=== PATIENT | female | born 1935 | race Caucasian/White ===

== ENCOUNTER 2019-06-30 06:57 | Inpatient (IN) | payer OTHER, SELFPAY ==
[2019-06-30] VITALS (14 sets, daily range): BP systolic 116–160; BP diastolic 71–92; PULSE 69–85; RESP 18–26; TEMP 36.6–37.1; O2SAT 85–97; BMI 34.4; BMI 33.5
--- NOTE | 2019-06-30 07:11 | EKG12_ITS ---
Test Reason : Blood Pressure : / mmHG Vent. Rate : 078 BPM Atrial Rate : 090 BPM P-R Int : 000 ms QRS Dur : 092 ms QT Int : 408 ms P-R-T Axes : 000 082 034 degrees QTc Int : 465 ms Atrial fibrillation Abnormal ECG Confirmed by KAMILLA AUGUSTINE ([id number]), video news editor LUKASZ EMEYR ([id number]) on 07/02/2019 11:07:07 AM Referred By: SONIA Confirmed By:KAMILLA AUGUSTINE
--- NOTE | 2019-06-30 07:11 | RAD_ITS ---
STUDY: X-RAY CHEST REASON FOR EXAM: Female, 83 years old. increase SOB, chest tightness -- cough x several weeks TECHNIQUE: Single AP portable view of the chest. COMPARISON: None. FINDINGS: There is hyperinflation of the lungs consistent with chronic obstructive lung disease (COPD). Bibasilar airspace disease. Could represent atelectasis or infection. There is no demonstrated pleural abnormality. There is borderline cardiomegaly. Normal mediastinum and danitza. Normal visualized pulmonary arteries. There is atherosclerotic tortuosity of the aortic arch and descending thoracic aorta. There are diffuse degenerative changes of the visualized thoracic spine. Normal visualized ribs, clavicles, and shoulders. There is no demonstrated abnormality of the visualized soft tissue structures of the upper abdomen. RAD/Chest 1 View (Portable) IMPRESSION: COPD with bibasilar airspace disease. Possible infection versus atelectasis. Electronically Signed: Clint Romo DO at 7:41 EST Tel , Service support ,
--- NOTE | 2019-06-30 07:14 | ED.DCSUM_ITS ---
- ER Visit Summary Date of Service: 06/30/19 Chief Complaint: Shortness of breath History of Present Illness: The patient is a 83 F presenting with shortness of breath. Patient states that she has had URI symptoms for the past couple weeks. She has shortness of breath that has been progressively worsening. This morning the shortness of breath was severe and EMS was called. She states shortness of breath is worsened with exertion. She has had a nonproductive cough. She has chest tightness with cough. She denies fever, complains of chills. Denies other complaints. Physical Examination: Vitals are stable. Patient is afebrile. Alert no acute distress. 85% on room air HEENT exam is unremarkable. Neck is supple. Lungs are wheezing bilaterally. Heart is irregularly irregular Abdomen is soft nontender nondistended. Extremities mild symmetric edema Skin is warm and dry. No focal neurologic deficit. Remainder of exam is unremarkable. Emergency Department Course and Treatment: Patient was given albuterol, Atrovent aerosols. EKG is A. fib rate is 78 with no acute ischemic changes. CBC shows hemoglobin 10.6. Chemistries show potassium 3.4, glucose 153. Troponin is negative. Influenza negative. BNP 410. Chest x-ray shows COPD with bibasilar airspace disease. Possible infection versus atelectasis. Blood cultures were sent. She was given Rocephin, Zithromax IV. Discussed with hospitalist for admission. Disposition: Admission Impression: Pneumonia, hypoxia, new onset A. fib This note was generated with [employer] dictation software. It may contain incorrect words, spelling, and punctuation that were not noted in review of the chart prior to signing ED Disposition - Plan for ED Patient: Referrals: Kevin Albert III, MD [Primary Care Provider] -
[2019-06-30 07:27] LABS: Absolute Lymphocyte Count 2.03 X10^3/uL (0.83-4.51); Absolute Neutrophil Count 4.2 X10^3/uL (2.0-7.7); Basophil# 0.03 X10^3/uL; Basophil% 0.4 % (0-1); Eosinophil# 0.15 X10^3/uL; Eosinophils% 2.1 % (0-5); Hematocrit 34.5 % (37-47); Hemoglobin 10.6 g/dL (12.0-15.0); Lymphocyte # 2.03 X10^3/ul (4.0); Mean Corp Hgb Conc 30.7 g/dL (32-36); Mean Corpuscular Hgb 25.9 pg (27.0-32.0); Mean Corpuscular Volume 84.4 fL (81-99); Mean Platelet Vol. 9.6 fl (6.2-12.0); Monocyte# 0.55 X10^3/uL; Monocyte% 7.9 % (0-10); NRBC Flagged by Analyzer 0 % (0-5); Neutrophil # 4.21 X10^3/uL (2.7-7.7); Neutrophil % 60.2 % (47-70); Platelet Count 228 K/mm3 (150-450); RBC Distribution Width CV 14.5 % (11.6-14.6); RBC Distribution Width SD 44.1 fl (35.1-43.9); Red Blood Count 4.09 M/mm3 (4.2-5.4)
[2019-06-30] MEDS: Albuterol 2.5 MG/3 ML VIAL.NEB. INHALATION ×3 (07:33)
[2019-06-30] MEDS: Ipratropium/Albuterol Sulfate 3 ML AMPUL.NEB INHALATION (07:33)
[2019-06-30 07:40] LABS: Anion Gap 7 (5-15); BUN 17 mg/dL (7-18); BUN/Creat Ratio 24.6 RATIO (10-20); Calcium,Total 8.5 mg/dL (8.5-10.1); Chloride 101 mmol/L (98-107); Creatinine, Serum 0.69 mg/dL (0.55-1.02); EST Glomerular Filtration Rate 87 mL/min (>60); Est Glom Filt Rate - Afr Amer 105 mL/min (>60); Glucose 153 mg/dL (74-106); Potassium 3.4 mmol/L (3.5-5.1); Sodium Level 137 mmol/L (136-145)
[2019-06-30] MEDS: Ceftriaxone 1 GM/50 ML BAG IV (08:06)
[2019-06-30 08:19] LABS: BNP,B-Type NATRIURETIC PEPTIDE 410.9 pg/mL (0-100)
--- NOTE | 2019-06-30 08:35 | NURSING ---
DR MENA SCOTT
--- NOTE | 2019-06-30 08:38 | NURSING ---
MED SURG PNEUMONIA, HYPOXIA KAYDENAM
--- NOTE | 2019-06-30 08:41 | HP.PCM_ITS ---
History of Present Illness Date of Admission: 06/30/19 Chief Complaint: shortness of breath The patient is a 83 year old F with a past medical history which includes diabetes and hypertension. She was admitted through the ED on 06/30/2019 with a complaint of shortness of breath which have been going on for about 2 weeks prior to admission. Shortness of breath progressively worsened with assisted lower extremity edema and orthopnea and PND. She denied any chest pain or palpitations or dizziness and denied any abdominal pain, diarrhea or vomiting. Review of systems is otherwise negative. She is never had such shortness of breath in the past before and has never been told she has heart failure. On adm ission, vitals were essentially stable and she was saturating well on 2 L of oxygen. Chemistry was significant for potassium of 3.4 and initial troponin was negative. BNP was 410.9. CBC was significant only for hemoglobin of 10.6. Chest x-ray showed COPD with bibasilar airspace disease showing possible infection versus atelectasis. EKG showed no acute ST changes and showed A. fib. Of note, patient denies having a history of A. fib. She has been admitted to be managed for acute heart failure of unknown EF. [] Past Medical History Allergies No Known Allergies Allergy (Verified 06/30/19 07:01) Home Medications: Ambulatory Orders Medication Instructions Recorded Amlodipine [Norvasc] 10 mg PO DAILY 10/26/16 Hydrochlorothiazide [Hctz] 12.5 mg PO DAILY 10/26/16 Lorazepam [Ativan] 0.5 mg PO BID PRN PRN 10/26/16 Metoprolol Tartrate [Lopressor 50 mg PO BID 10/26/16 (beta fabien)] Naproxen [Naprosyn] 500 mg PO BID PRN PRN 10/26/16 Quinapril HCl [Accupril] 20 mg PO DAILY 10/26/16 glipiZIDE XL [Glucotrol Xl] 5 mg PO DAILY@0800 10/26/16 metFORMIN HCl [Glucophage] 1,000 mg PO BIDCM 10/26/16 Atorvastatin Calcium [Lipitor] 20 mg PO QHS 06/30/19 Calcium Carbonate/Vitamin D3 1 ea PO DAILY 06/30/19 [Calcium 600 + Vit D Tablet] [place]-3 Fatty Acids/Fish Oil [Fish 1 ea PO BID 01/07/20 Oil 1,000 mg Capsule] traZODone [Desyrel] 50 mg PO QHS 06/30/19 Lives: With Family Smoking Status: Never smoker Alcohol: None Drugs: None - *Family History Maternal History Items: Heart Disease Paternal History Items: Heart Disease, Stroke Review of Systems Constitutional: Denies: Chills, Fever, Malaise, Weakness, Weight Change Eyes: Denies: Blurred vision HEENT: Denies: Head Aches, Sinus Congestion, Sinus Drainage Cardiovascular: Reports: Edema, Orthopnea, Paroxysmal Noc. Dyspnea. Denies: Chest Pain, Chest Tightness, Heaviness, Light Headedness, Palpitations Respiratory: Reports: Shortness of Breath, Shortness of breath at rest, Shortness of breath upon exertion. Denies: Cough, Sputum production Gastrointestinal: Denies: Abdominal Pain, Nausea, Vomiting Genitourinary: Denies: Dysuria Musculoskeletal: Denies: Joint Pain, Joint Tenderness Skin: Denies: Rash, Wounds Neurological: Denies: Numbness, Tingling, Focal weakness Psychiatric: Denies: Anxiety, Depression, Homicidal Ideations, Suicidal Ideations Hematologic/ Lymphatic: Denies: Easy Bruising, Easy Bleeding VTE Information - Inpt Only VTE Present on Admission: No VTE Pharm Prophylaxis ordered?: Yes - Physical Exam Vitals/I&O's: Vital Signs Temp Pulse Resp BP Pulse Ox 97.9 F 72 26 H 129/77 H 97 06/30/19 08:08 06/30/19 08:08 06/30/19 08:08 06/30/19 08:08 06/30/19 08:08 Oxygen Flow Rate (L/min) 3 Oxygen Delivery Method Nasal Cannula Weight: 188 lb 4.396 oz Body Mass Index (BMI) 34.4 Finger Stick Blood Glucose 205 General: Alert, Oriented x3, Cooperative, No apparent distress HEENT: Atraumatic, PERRLA, EOMI, Normocephalic Oral: Moist Mucosa Neck: Supple, No JVD, Negative Carotid Bruits Lungs: - - decreased breath sounds bibasally, no wheezes or crackles. on 2L of oxygen by nasal canula Cardiovascular: No murmurs, Irregular Rate - and rhythm Abdomen: Bowel Sounds Present, Soft, Non Tender Extremities: No clubbing, No cyanosis, Edema - bilateral pitting pedal edema (1+) Skin: No rashes, No breakdown Musculoskeletal: No Tenderness to Palpation of Joints or Extremities Lymphatic: No Cervical, Supraclavicular, or Inguinal Adenopathy Neurological: Cranial nerves II-XII grossly intact, Neuro grossly intact, Motor Exam 5/5 strength throughout Psych/Mental Status: Normal Affect, Appropriate, Alert and oriented to time, place, person, mood and affect Microbiology Past 72 Hours 06/30/19 07:20 Mucosa - Nose Influenza Types A,B Direct FA (DANIEL) - Final Laboratory Results 06/30/19 07:05: WBC 7.0, RBC 4.09 L, Hgb 10.6 L, Hct 34.5 L, MCV 84.4, MCH 25.9 L, MCHC 30.7 L, RDW Std Deviation 44.1 H, RDW Coeff of Jim 14.5, Plt Count 228, MPV 9.6, Immature Gran % (Auto) 0.400, Neut % (Auto) 60.2, Lymph % (Auto) 29.0, [place] % (Auto) 7.9, Eos % (Auto) 2.1, Baso % (Auto) 0.4, Absolute Neuts (auto) 4.2, Absolute Lymphs (auto) 2.03, Nucleated RBC % 0 06/30/19 07:05: Sodium 137, Potassium 3.4 L, Chloride 101, Carbon Dioxide 29.0, Anion Gap 7, BUN 17, Creatinine 0.69, Estim Creat Clear Calc 34.90, Est GFR (MDRD) Af Amer 105, Est GFR (MDRD) Non-Af 87, BUN/Creatinine Ratio 24.6 H, Glucose 153 H, Calcium 8.5, Troponin I < 0.015 06/30/19 07:05: B-Natriuretic Peptide 410.9 H Diagnostic Data Chest X-Ray 06/30/19 07:11 IMPRESSION: COPD with bibasilar airspace disease. Possible infection versus atelectasis. Electronically Signed: Clint Romo DO at 7:41 EST Tel , Service support , Current Medications Azithromycin 500 mg/ Dextrose 255 mls @ 250 mls/hr IV X1 ONE Stop: 06/30/19 08:44 Assessment/Plan 83 y/o admitted with a complaint of shortness of breath, with associated orthopnea and PND 1. Acute heart failure with unknown EF * admit to pCU with telemetry * BNP was 410. CXR showed COPD with bibasilar airspace disease; however, she has no clinical evidence of pneumonia * initial troponin was negative; will cycle * start IV lasix 40mg bid * monitor intake and output chart; fluid restriction to 1500cc deaily * 2D echo * check TSH * 2. New onset Afib * has no history of Afib * EKG on admission showed Afib, rate controlled * CHADVASC score is 6 * will give start on lovenox; once troponins are cycled and are negative, will transition to eliquis or coumadin, based on cost and preference 3. Hypertension: * Controlled. * On amlodipine and lisinopril. * We will stop amlodipine and start patient on carvedilol from tomorrow once shortness of breath improves. * 4. Diabetes mellitus: on metformin and glipizide. ISS. Accuchecks ACHS. DVT prophylaxis: Started on Lovenox. CODE STATUS: Full code * Patient and daughter counseled extensively about different types of CODE STATUS including full code, DNR CCA and DNR CCA. Patient elects to be full code. * Total hbif-ll-eoea time 18 minutes. Code Visit Inpatient E&M: 91901 Init Hosp L3 Procedures: 12291 Advncd Care Plan 30 Min
--- NOTE | 2019-06-30 08:46 | NURSING ---
NEW ORDER, U 124
--- NOTE | 2019-06-30 10:06 | EKG12_ITS ---
Test Reason : ROUTINE Blood Pressure : / mmHG Vent. Rate : 069 BPM Atrial Rate : 258 BPM P-R Int : 000 ms QRS Dur : 092 ms QT Int : 414 ms P-R-T Axes : 000 084 019 degrees QTc Int : 443 ms Atrial fibrillation Abnormal ECG Confirmed by MIKAELA JAIN, NATE ([id number]), restaurant expeditor LUKASZ EMERY ([id number]) on 07/01/2019 11:47:48 AM Referred By: MENA Confirmed By:NATE AL MD
--- NOTE | 2019-06-30 10:06 | ECHOD_ITS ---
Reason For Study: CHF Procedure This was a 2D Doppler, Color Flow transthoracic echocardiogram. Exam performed portable in patient room. Left Ventricle Normal LV size. Left ventricular systolic function is normal. The estimated ejection fraction is 65 %. There is evidence of diastolic dysfunction. No regional wall motion abnormalities noted. Right Ventricle Normal RV size. Normal systolic function. Atria The left atrium is severely enlarged. The right atrium is severely enlarged. No doppler evidence for ASD. Mitral Valve There is mild mitral annular calcification. Extension of the mitral annular calcification onto the base of the mitral valve leaflets. Moderate (2+) mitral valve insufficiency. Tricuspid Valve Normal tricuspid valve. Moderate (2+) tricuspid valve insufficiency. Right ventricular systolic pressure estimated to be 82 mmHg. Aortic Valve Trisinus/trileaflet aortic valve. Mild diffuse aortic valve thickening. Mild diffuse aortic valve calcification. Moderate aortic stenosis. Trivial aortic valve insufficiency. Pulmonic Valve The pulmonic valve is not well visualized. Mild (1+) pulmonic valve insufficiency. Great Vessels Normal sized aortic root. Calcified aortic root. Pericardium/Pleural No pericardial effusion. MMode/2D Measurements & Calculations LVIDd: 4.5 cm IVSd: 0.92 cm LVOT diam: 2.1 cm LVIDs: 2.7 cm LVPWd: 1.00 cm LVOT area: 3.5 cm2 RVDd: 3.4 cm FS: 38.6 % Ao root diam: 3.5 cm LAV(MOD-bp): 130.6 ml LVAd ap4: 24.0 cm2 LAV(MOD-bp) Indexed: 71.0 ml/m2 EDV(MOD-sp4): 71.1 ml LAV(MOD-sp2): 112.3 ml EDV(sp4-el): 73.3 ml LAV(MOD-sp4): 141.1 ml LVAs ap4: 13.7 cm2 ESV(MOD-sp4): 31.0 ml ESV(sp4-el): 31.0 ml EF(MOD-sp4): 56.4 % EF(sp4-el): 57.7 % SV(MOD-sp4): 40.1 ml SV(sp4-el): 42.3 ml LA A4 area: 35.2 cm2 LA dimension(2D): 5.3 cm RA A4 area: 26.5 cm2 Time Measurements MV dec time: 0.15 sec Doppler Measurements & Calculations MV E max tom: 161.2 cm/sec Lat Peak E' Tom: 7.9 cm/sec Med Peak E' Tom: 7.7 cm/sec MV A max tom: 97.8 cm/sec E/E' lat: 20.5 E/E' med: 20.8 MV E/A: 1.6 Ao V2 max: 324.9 cm/sec AI max tom: 452.5 cm/sec LV V1 max: 105.7 cm/sec Ao max P.3 mmHg AI max P.9 mmHg LV V1 max P.5 mmHg Ao V2 mean: 236.8 cm/sec LV V1 mean P.5 mmHg Ao mean P.5 mmHg AI dec slope: 404.8 cm/sec2 LV V1 mean: 75.1 cm/sec Ao V2 VTI: 69.1 cm AI P1/2t: 327.4 msec LV V1 VTI: 22.9 cm AYANNA(I,D): 1.1 cm2 AYANNA(V,D): 1.1 cm2 SV(LVOT): 79.0 ml PA V2 max: 89.6 cm/sec PI end-d tom: 91.7 cm/sec TR max tom: 431.0 cm/sec TR max P.3 mmHg Interpretation Summary Left ventricular systolic function is normal. The estimated ejection fraction is 65 %. The left atrium is severely enlarged. The right atrium is severely enlarged. There is mild mitral annular calcification. Extension of the mitral annular calcification onto the base of the mitral valve leaflets. Moderate (2+) mitral valve insufficiency. Moderate (2+) tricuspid valve insufficiency. Moderate aortic stenosis. Trivial aortic valve insufficiency. Mild (1+) pulmonic valve insufficiency. Calcified aortic root. Right ventricular systolic pressure estimated to be 82 mmHg c/w severe pulmonary hypertension. There is evidence of diastolic dysfunction. Ordering Physician: Renee Holder Referring Physician: BENNY DOMINGUEZ Performed By: Jazz Morgan, FORTINO, RVT
[2019-06-30 10:43] LABS: Cholesterol 98 mg/dL (200); High Density Lipoprotein 45 mg/dL; Thyroid Stim Hormone (TSH) 2.33 uIU/mL (0.358-3.74); Triglycerides 111 mg/dL; Very Low Density Lipoprotein 22 mg/dL (5-40)
[2019-06-30] MEDS: Furosemide 40 MG/4 ML Vial IV ×2 (10:59→17:22)
[2019-06-30 11:10] LABS: Bedside Glucose 163 mg/dL (70-110)
[2019-06-30] MEDS: Enoxaparin 80 MG/0.8 ML Syringe SC (11:55)
[2019-06-30] MEDS: Insulin Lispro 100 UNIT/ML INSULN.PEN SC ×2 (12:00→16:12)
[2019-06-30 12:16] LABS: Bedside Glucose 158 mg/dL (70-110)
[2019-06-30] MEDS: amLODIPine 10 MG Tablet PO (13:09)
--- NOTE | 2019-06-30 15:02 | CASEMGMT ---
RN DINORAH assessment: Face to Face with patient for initial transition planning/care coordination assessment. RN DINORAH introduced self and role at [facility], pt voices understanding and consents to assessment at this time. Pt is lying in bed in no distress at this time. Pt is A/Ox4 at this time and answers all questions appropriately at this time. Pt's daughter, Triny Dunn, is at bedside during assessment. Care providers, pharmacy, and demographics verified at this time. Presentation: Increased SOB this morning. Tightness in chest. Cough for weeks. Admitting dx: Acute heart failure with unknown EF, New onset afib PCP: [facility] Specialists: Pt states no current specialists. Preferred Pharmacy: [facility] pharmacy in [place]-Dr. Holder asked this RN CM to notify pt regarding cost of Eliquis out of pocket. Pt aware of out of pocket cost for Eliquis at this time and pt aware that physician will be discussing this with her later, voices understanding. Insurance: AC Prescription Benefit: Self Living Will/HPOA: Pt states has LW/HPOA and is aware that it is not currently on file at [facility] at this time. Pt states that she provided copies to Dr. Albert's office and is agreeable for this RN CM to call and attempt to get copies faxed over. LNOK: Triny Dunn, daughter Living Arrangements: Pt states lives with daughter in 1 story home with 1 step in and states no concerns at home at this time. Pt states has been independent with ADL's at home. Transportation: Pt states no transportation concerns at this time. DME/HHC: Pt states has a cane and grab bars and states no need for any further DME at this time. Pt states no hx of HHC or SNF in the past. Pt states no concerns with going home at time of discharge. Pt is retired. Pt states does not smoke or drink ETOH. Pt states no further concerns/needs at this time. CM to follow for any further discharge planning/needs. Advised pt/daughter to ask for CM if any further questions/concerns/needs arise, voice understanding. Pt Goal: Home Plan[place]
--- NOTE | 2019-06-30 16:05 | CHAPLAIN ---
Type of Pastoral Visit _x__ Initial Visit ___ Follow-up Visit ___ On-call Visit ___ General Patient Visit ___ Spiritual Assessment ___ Family Conference ___ Bereavement ___ Rapid Response ___ Code Blue ___ Other (describe below) Pastoral Care Referral From _x__ Patient ___ Family ___ Nurse ___ Physician ___ Advertising Job Titles ___ Senior Project Leader/Team Lead ___ Other (describe below) Sacrament/Intervention ___ Active listening ___ Anointing ___ Adventist ___ Bereavement ___ Communion ___ [place] exploration ___ ___ Life review ___ Prayer ___ Reconciliation ___ Sacrament of Sick _x__ Supportive presence ___ Wedding ___ Other (describe below) Pastoral Comments
[2019-06-30] MEDS: metFORMIN HCl 500 MG Tablet 1000 MG PO (16:12)
[2019-06-30 16:20] LABS: Bedside Glucose 172 mg/dL (70-110)
[2019-06-30] MEDS: 0.9% Saline Lock 10 ML Syringe IV ×2 (17:22→21:21)
[2019-06-30] MEDS: Acetaminophen 325 MG Tablet 650 MG PO (17:27)
[2019-06-30 17:55] LABS: International Normalized Ratio 1.1; Prothrombin Time (Protime)PT. 14.3 SECONDS (11.7-14.9)
[2019-06-30] MEDS: Omega-3 Acid Ethyl Esters 1 GM Capsule PO (21:15)
[2019-06-30] MEDS: Metoprolol Tartrate 50 MG Tablet PO (21:15)
[2019-06-30] MEDS: traZODone 50 MG Tablet PO (21:15)
[2019-06-30] MEDS: Atorvastatin Calcium 20 MG Tablet PO (21:15)
[2019-07-01] VITALS (9 sets, daily range): BP systolic 94–123; BP diastolic 51–64; PULSE 64–79; RESP 14–20; TEMP 36.6–36.7; O2SAT 92–94
[2019-07-01 00:17] LABS: Bedside Glucose 119 mg/dL (70-110)
[2019-07-01 06:04] LABS: Absolute Lymphocyte Count 1.61 X10^3/uL (0.83-4.51); Absolute Neutrophil Count 4.1 X10^3/uL (2.0-7.7); Basophil# 0.03 X10^3/uL; Basophil% 0.5 % (0-1); Eosinophil# 0.14 X10^3/uL; Eosinophils% 2.2 % (0-5); Hemoglobin 9.4 g/dL (12.0-15.0); Lymphocyte # 1.61 X10^3/ul (4.0); Mean Corp Hgb Conc 31.3 g/dL (32-36); Mean Corpuscular Hgb 26.1 pg (27.0-32.0); Mean Corpuscular Volume 83.3 fL (81-99); Monocyte% 9.3 % (0-10); NRBC Flagged by Analyzer 0 % (0-5); Neutrophil # 4.05 X10^3/uL (2.7-7.7); Neutrophil % 62.7 % (47-70); Platelet Count 201 K/mm3 (150-450); RBC Distribution Width CV 14.3 % (11.6-14.6); RBC Distribution Width SD 43.2 fl (35.1-43.9); White Blood Count 6.5 K/mm3 (4.4-11.0)
[2019-07-01 06:14] LABS: International Normalized Ratio 1.3; Prothrombin Time (Protime)PT. 15.6 SECONDS (11.7-14.9)
[2019-07-01 06:37] LABS: Anion Gap 6 (5-15); BUN 14 mg/dL (7-18); BUN/Creat Ratio 18.4 RATIO (10-20); Calcium,Total 8.6 mg/dL (8.5-10.1); Chloride 101 mmol/L (98-107); Creatinine, Serum 0.76 mg/dL (0.55-1.02); EST Glomerular Filtration Rate 78 mL/min (>60); Est Glom Filt Rate - Afr Amer 94 mL/min (>60); Glucose 146 mg/dL (74-106); Potassium 3.3 mmol/L (3.5-5.1); Sodium Level 138 mmol/L (136-145)
[2019-07-01 06:45] LABS: Bedside Glucose 143 mg/dL (70-110)
[2019-07-01] MEDS: metFORMIN HCl 500 MG Tablet 1000 MG PO ×2 (09:10→16:35)
[2019-07-01] MEDS: Omega-3 Acid Ethyl Esters 1 GM Capsule PO ×2 (09:11→21:51)
[2019-07-01] MEDS: glipiZIDE XL 5 MG Tablet PO (09:11)
[2019-07-01] MEDS: Furosemide 40 MG/4 ML Vial IV ×2 (09:11→16:35)
[2019-07-01] MEDS: Metoprolol Tartrate 50 MG Tablet PO ×2 (09:11→21:51)
[2019-07-01] MEDS: Calcium Carbonate 500 MG Tablet PO (09:12)
[2019-07-01] MEDS: Lisinopril 20 MG Tablet PO (09:12)
[2019-07-01] MEDS: amLODIPine 10 MG Tablet PO (09:15)
[2019-07-01] MEDS: 0.9% Saline Lock 10 ML Syringe IV ×2 (09:15→16:38)
[2019-07-01] MEDS: Insulin Lispro 100 UNIT/ML INSULN.PEN SC (11:35)
[2019-07-01 11:41] LABS: Bedside Glucose 187 mg/dL (70-110)
--- NOTE | 2019-07-01 14:17 | PCM.PN.HOSP ---
Subjective: Patient seen and examined. She feels much better today and has no complaints. Shortness of breath has improved markedly. Review of symptoms otherwise negative. Labs and vitals reviewed. She has remained hemodynamically stable. Vitals/I&O's: Vital Signs Temp Pulse Resp BP Pulse Ox 98.1 F 79 16 123/63 H 92 07/01/19 09:10 07/01/19 09:11 07/01/19 09:10 07/01/19 09:10 07/01/19 09:10 Oxygen Flow Rate (L/min) 2 Oxygen Delivery Method Room Air Weight: 183 lb 6.793 oz Body Mass Index (BMI) 33.5 Finger Stick Blood Glucose 205 Intake and Output for Last 24 Hours 06/29/19 06/30/19 07/01/19 23:59 23:59 23:59 Intake Total 1245 / 1245 220 / 220 Output Total 890 / 890 400 / 400 Balance 355 / 355 -180 / -180 General: Alert, Oriented x3, Cooperative, No apparent distress HEENT: Atraumatic, PERRLA, EOMI, Normocephalic Oral: Moist Mucosa Neck: Supple, No JVD, Negative Carotid Bruits Lungs: - - decreased breath sounds bibasally. on 2L of oxygen by nasal canula Cardiovascular: Irregular Rate - and rhythm, mild grade 2 systolic murmur over pulmonary valve area. Abdomen: Bowel Sounds Present, Soft, Non Tender Extremities: No clubbing, No cyanosis, Edema - bilateral pitting pedal edema (1+) Skin: No rashes, No breakdown Musculoskeletal: No Tenderness to Palpation of Joints or Extremities Lymphatic: No Cervical, Supraclavicular, or Inguinal Adenopathy Neurological: Cranial nerves II-XII grossly intact, Neuro grossly intact, Motor Exam 5/5 strength throughout Psych/Mental Status: Normal Affect, Appropriate, Alert and oriented to time, place, person, mood and affect Microbiology Past 72 Hours 06/30/19 07:20 Mucosa - Nose Influenza Types A,B Direct FA (DANIEL) - Final Laboratory Results 06/30/19 13:50: Troponin I < 0.015 06/30/19 16:11: POC Glucose 172 H 06/30/19 17:41: PT 14.3, INR 1.1 06/30/19 21:01: POC Glucose 119 H 07/01/19 05:30: WBC 6.5, RBC 3.60 L, Hgb 9.4 L, Hct 30.0 L, MCV 83.3, MCH 26.1 L, MCHC 31.3 L, RDW Std Deviation 43.2, RDW Coeff of Jim 14.3, Plt Count 201, MPV 10.0, Immature Gran % (Auto) 0.300, Neut % (Auto) 62.7, Lymph % (Auto) 25.0, [place] % (Auto) 9.3, Eos % (Auto) 2.2, Baso % (Auto) 0.5, Absolute Neuts (auto) 4.1, Absolute Lymphs (auto) 1.61, Nucleated RBC % 0 07/01/19 05:30: Sodium 138, Potassium 3.3 L, Chloride 101, Carbon Dioxide 31.0, Anion Gap 6, BUN 14, Creatinine 0.76, Estim Creat Clear Calc 34.90, Est GFR (MDRD) Af Amer 94, Est GFR (MDRD) Non-Af 78, BUN/Creatinine Ratio 18.4, Glucose 146 H, Calcium 8.6 07/01/19 05:30: PT 15.6 H, INR 1.3 07/01/19 06:32: POC Glucose 143 H 07/01/19 11:35: POC Glucose 187 H Current Medications Acetaminophen (Tylenol) 650 mg PO Q6H PRN PRN PRN Reason: Pain Score 1-3/Temp > 100.7 F Last Admin: 06/30/19 17:27 Dose: 650 mg Documented by: Amlodipine Besylate (Norvasc) 10 mg PO DAILY [facility] Last Admin: 07/01/19 09:15 Dose: 10 mg Documented by: Atorvastatin Calcium (Lipitor) 20 mg PO QHS [facility] Last Admin: 06/30/19 21:15 Dose: 20 mg Documented by: Calcium Carbonate (Tums) 500 mg PO DAILY [facility] Last Admin: 07/01/19 09:12 Dose: 500 mg Documented by: Furosemide (Lasix) 40 mg IV BIDLX [facility] Last Admin: 07/01/19 09:11 Dose: 40 mg Documented by: Glipizide (Glucotrol Xl) 5 mg PO DAILY@0800 [facility] Last Admin: 07/01/19 09:11 Dose: 5 mg Documented by: Glucagon () 1 mg IM .X1 PRN PRN Reason: Hypoglycemia Guaifenesin (Robitussin) 20 ml PO Q4H PRN PRN PRN Reason: COUGH Sodium Chloride () 250 mls @ 15 mls/hr IV .[id number] PRN PRN Reason: Saline Flush Sodium Chloride () 250 mls @ 15 mls/hr IV .[id number] PRN PRN Reason: Additional IVPB Infusion Dextrose (Dextrose 10%-Water) 250 mls @ 999 mls/hr IV .Q16M PRN; Protocol PRN Reason: HYPOGLYCEMIA Insulin Human Lispro (Humalog Kwikpen (Bkc)) 0 unit SC ACHS [facility]; Protocol Last Admin: 07/01/19 11:35 Dose: 2 u Documented by: Lisinopril (Zestril) 20 mg PO DAILY [facility] Last Admin: 07/01/19 09:12 Dose: 20 mg Documented by: Lorazepam (Ativan) 0.5 mg PO BID PRN PRN PRN Reason: ANXIETY Metformin [facility] ([facility]ophage) [facility] Last Admin: 07/01/19 09:10 Dose: 1,000 mg Documented by: Metoprolol Tartrate (Lopressor (Beta Francois)) 50 mg PO BID [facility] Last Admin: 07/01/19 09:11 Dose: 50 mg Documented by: Nitroglycerin (Nitrostat) 0.4 mg SUBLINGUAL Q5M PRN PRN Reason: CARDIAC/CHEST PAIN Vtfyq-[id number] Ethyl Esters (Lovaza) 1 gm PO BID [facility] Last Admin: 07/01/19 09:11 Dose: 1 gm Documented by: Ondansetron HCl (Zofran) 4 mg IV Q8H PRN PRN PRN Reason: NAUSEA/VOMITING Sodium Chloride () 10 - 40 ml IV UD PRN PRN Reason: SALINE FLUSH Last Admin: 07/01/19 09:15 Dose: 10 ml Documented by: Trazodone HCl (Desyrel) 50 mg PO QHS [facility] Last Admin: 06/30/19 21:15 Dose: 50 mg Documented by: Medical Necessity - Tobacco Use Smoking Status: Never smoker Assessment/Plan 83 y/o admitted with a complaint of shortness of breath, with associated orthopnea and PND 1. Acute heart failure with preserved EF feels better today. SOB is much better 2D echo: EF of 65%, with normal LV size and no regional wall motion abnormalities noted. Evidence of diastolic dysfunction on IV lasix 40mg bid In mild positive balance by 175 mils though I do not have a cure that is because patient does not have a Dupont catheter in place and has been going to the bathroom on her own. TSH was 2.33. 2. New onset Afib has no history of Afib EKG on admission showed Afib, rate controlled CHADVASC score is 6 On Coumadin. INR today is 1.3. Received 10mg of Coumadin yesterday. Give another 10 mg of Coumadin today. 3. Hypertension: Controlled. On amlodipine and lisinopril. rate controlled will stop amlodipine and start low dose carvedilol in light of heart failure. 4. Hypokalemia: Potassium is 3.3. Replace and monitor. 5. Diabetes mellitus: on metformin and glipizide. ISS. Accuchecks ACHS. DVT prophylaxis: On Coumadin. Code Visit Inpatient E&M: 41126 Subs Hosp L2
[2019-07-01 16:40] LABS: Bedside Glucose 86 mg/dL (70-110)
[2019-07-01] MEDS: Atorvastatin Calcium 20 MG Tablet PO (21:51)
[2019-07-01] MEDS: traZODone 50 MG Tablet PO (21:51)
[2019-07-01 22:10] LABS: Bedside Glucose 113 mg/dL (70-110)
[2019-07-02] VITALS (8 sets, daily range): BP systolic 94–121; BP diastolic 44–62; PULSE 59–85; RESP 18; TEMP 36.6–37.1; O2SAT 94–99
[2019-07-02 06:53] LABS: International Normalized Ratio 2.4; Prothrombin Time (Protime)PT. 26.4 SECONDS (11.7-14.9)
[2019-07-02 07:06] LABS: Bedside Glucose 132 mg/dL (70-110)
[2019-07-02 07:34] LABS: Anion Gap 7 (5-15); BUN 22 mg/dL (7-18); BUN/Creat Ratio 30.3 RATIO (10-20); Calcium,Total 8.4 mg/dL (8.5-10.1); Chloride 101 mmol/L (98-107); Creatinine, Serum 0.73 mg/dL (0.55-1.02); EST Glomerular Filtration Rate 82 mL/min (>60); Est Glom Filt Rate - Afr Amer 99 mL/min (>60); Glucose 118 mg/dL (74-106); Potassium 3.3 mmol/L (3.5-5.1); Sodium Level 139 mmol/L (136-145)
[2019-07-02] MEDS: glipiZIDE XL 5 MG Tablet PO (07:54)
[2019-07-02] MEDS: metFORMIN HCl 500 MG Tablet 1000 MG PO (07:54)
--- NOTE | 2019-07-02 09:46 | DCINST_ITS ---
You will use the following diet at home:: Cardiac Your food should be the consistency of: Regular Your liquids should be the consistency of: Regular/Thin Discharge Activity: Return to Normal Activity Weight Bearing Status: Weight bearing as tolerated Call your doctor if you observe: Shortness of breath, Swelling in the ankles, Chest pain, Increased palpitations (irregular heartbeat) Instructions: Taking SADIA Inhibitors, Taking?Coumadin, What Is Heart Failure?, What Is Atrial Flutter/Atrial Fibrillation? Additional Instructions: to be referred to automated access systems technician by PCP, as per patient's request. To see PCP for INR check in 2-3 days. Target INR is 2-3 Allergies/Adverse Reactions: Allergies No Known Allergies Allergy (Verified 06/30/19 07:01) Medications to take at Discharge Lorazepam [Ativan] 0.5 mg PO BID PRN PRN 10/26/16 Quinapril HCl [Accupril] 20 mg PO DAILY 10/26/16 glipiZIDE XL [Glucotrol Xl] 5 mg PO DAILY@0800 10/26/16 metFORMIN HCl [Glucophage] 1,000 mg PO BIDCM 10/26/16 Atorvastatin Calcium [Lipitor] 20 mg PO QHS 06/30/19 Calcium Carbonate/Vitamin D3 [Calcium 600 + Vit D Tablet] 1 ea PO DAILY 06/30/19 [place]-3 Fatty Acids/Fish Oil [Fish Oil 1,000 mg Capsule] 1 ea PO BID 06/30/19 traZODone [Desyrel] 50 mg PO QHS 06/30/19 Furosemide [Lasix] 40 mg PO DAILY #30 tab 07/02/19 Metoprolol Tartrate 25 mg PO BID #60 tab 07/02/19 Warfarin [Coumadin ([facility]KC)] 5 mg PO DAILY #30 tab 07/02/19 The following prescriptions were given: Warfarin [Coumadin (PBKC)] 5 mg PO DAILY #30 tab Transmission Status: Pending to [facility] Furosemide [Lasix] 40 mg PO DAILY #30 tab Transmission Status: Sent to [facility] Metoprolol Tartrate 25 mg PO BID #60 tab Transmission Status: Pending to [facility] Primary Care Physician: Kevin Albert III, MD [Primary Care Provider] - Please follow up with your Primary Care Physician in: within one week Test Results: Test results from this visit will be discussed in further detail at your follow- up appointment, if applicable. Proposed Discharge Date: 07/02/19
--- NOTE | 2019-07-02 09:51 | PCM.DC.SUM ---
Discharge Date and Diagnosis Date of Admission: 06/30/19 Date of Discharge: 07/02/19 - Primary Discharge Diagnosis acute heart failure with preserved EF new onset Atrial fibrillation Hospital Course and Treatment Imaging Results: Diagnostic Data Chest X-Ray 06/30/19 07:11 IMPRESSION: COPD with bibasilar airspace disease. Possible infection versus atelectasis. Electronically Signed: Clint Romo DO at 7:41 EST Tel , Service support , none Operations: None Procedures: 2-D Echocardiogram Summary of Care Provided: The patient is a 83 year old F with a past medical history which includes diabetes and hypertension. She was admitted through the ED on 06/30/2019 with a complaint of shortness of breath which have been going on for about 2 weeks prior to admission. Shortness of breath progressively worsened with assisted lower extremity edema and orthopnea and PND. She denied any chest pain or palpitations or dizziness and denied any abdominal pain, diarrhea or vomiting. Review of systems is otherwise negative. She is never had such shortness of breath in the past before and has never been told she has heart failure. On admission, vitals were essentially stable and she was saturating well on 2 L of oxygen. Chemistry was significant for potassium of 3.4 and initial troponin was negative. BNP was 410.9. CBC was significant only for hemoglobin of 10.6. Chest x-ray showed COPD with bibasilar airspace disease showing possible infection versus atelectasis. EKG showed no acute ST changes and showed A. fib. Of note, patient denies having a history of A. fib. She was admitted to be managed for acute heart failure of unknown EF. CHADVASC score was 6. She was started on diuresis with IV Lasix 40 mg twice daily. She was also started on anticoagulation. 2D echo done showed EF of 65% with normal left ventricular size and no regional motion abnormalities noted but had evidence of diastolic dysfunction. Patient shortness of breath resolved with diuresis. She was put on Coumadin. Patient had episodes of transient hypotension which was thought to be due to diuresis and she stated that her blood pressure had been running low so her PCP had adjusted her medication. Amlodipine was therefore discontinued and patient was discharged home on 40 mg daily of Lasix. Her quinapril dose was also decreased to 10 mg daily and she was put on metoprolol 25 mg twice daily. She had previously been on 50 mg twice daily, which she denies a history of A. fib. TSH was 2.33. Patient preferred not to follow-up with her mastic man in the [facility] system and wanted to see her PCP who is the [facility] doctor for her to be referred to her mastic man in the [facility] system. Patient remained stable and was discharged home on 07/02/2019 with a prescription for p.o. Coumadin 5 mg daily. She is to follow-up with her primary care doctor for INR check within the next 2 days. Target INR is between 2 and 3. Seen and examined prior to discharge. She had no complaints. Review of systems otherwise negative. Labs and vitals reviewed. Home medication reviewed and reconciled. o/e: Vital Signs Height 5 ft 2 in Weight: 179 lb 14.355 oz Weight in Pounds 179.9 lbs Pulse Ox 99 Temperature 97.8 F Pulse Rate 67 Respiratory Rate 18 Blood Pressure [BP] 103/62 Blood Pressure 121/52 Blood Pressure Position [BP] Sitting Blood Pressure Position Semi-Fowlers General: Alert, Oriented x3, Cooperative, No apparent distress HEENT: Atraumatic, PERRLA, EOMI, Normocephalic Oral: Moist Mucosa Neck: Supple, No JVD, Negative Carotid Bruits Lungs: - - decreased breath sounds bibasally. on 2L of oxygen by nasal canula Cardiovascular: Irregular Rate - and rhythm, mild grade 2 systolic murmur over pulmonary valve area. Abdomen: Bowel Sounds Present, Soft, Non Tender Extremities: No clubbing, No cyanosis, Edema - bilateral pitting pedal edema (1+) Skin: No rashes, No breakdown Musculoskeletal: No Tenderness to Palpation of Joints or Extremities Lymphatic: No Cervical, Supraclavicular, or Inguinal Adenopathy Neurological: Cranial nerves II-XII grossly intact, Neuro grossly intact, Motor Exam 5/5 strength throughout Psych/Mental Status: Normal Affect, Appropriate, Alert and oriented to time, place, person, mood and affect Plan is as above. Patient was counseled her blood pressure at home and if her systolic fell below 100, she was not to take her blood pressure medications to call her primary care doctor. Note, patient was also discharged with a prescription for p.o. potassium chloride 20 mg daily on account of hypokalemia during admission which is likely due to diuresis with Lasix. - Physical Exam Vitals/I&O's: Vital Signs Temp Pulse Resp BP Pulse Ox 98.2 F 70 18 115/61 94 07/02/19 08:13 07/02/19 08:13 07/02/19 08:13 07/02/19 08:13 07/02/19 08:13 Oxygen Flow Rate (L/min) 2 Oxygen Delivery Method Room Air Weight: 179 lb 14.355 oz Body Mass Index (BMI) 33.5 Finger Stick Blood Glucose 205 Intake and Output for Last 24 Hours 06/30/19 07/01/19 07/02/19 23:59 23:59 23:59 Intake Total 1245 / 1245 340 / 340 50 / 50 Output Total 890 / 890 1150 / 1150 200 / 200 Balance 355 / 355 -810 / -810 -150 / -150 Microbiology Past 72 Hours 06/30/19 08:00 Blood Culture (Wb) - Anticubital Left Blood Culture - Preliminary No growth in 48 hours. 06/30/19 07:58 Blood Culture (Wb) - Anticubital Right Blood Culture - Preliminary No growth in 48 hours. 06/30/19 07:20 Mucosa - Nose Influenza Types A,B Direct FA (DANIEL) - Final Laboratory Results 07/01/19 11:35: POC Glucose 187 H 07/01/19 16:34: POC Glucose 86 07/01/19 21:58: POC Glucose 113 H 07/02/19 06:30: PT 26.4 H, INR 2.4 07/02/19 06:30: Sodium 139, Potassium 3.3 L, Chloride 101, Carbon Dioxide 31.0, Anion Gap 7, BUN 22 H, Creatinine 0.73, Estim Creat Clear Calc 34.90, Est GFR (MDRD) Af Amer 99, Est GFR (MDRD) Non-Af 82, BUN/Creatinine Ratio 30.3 H, Glucose 118 H, Calcium 8.4 L 07/02/19 06:52: POC Glucose 132 H Current Medications Acetaminophen (Tylenol) 650 mg PO Q6H PRN PRN PRN Reason: Pain Score 1-3/Temp > 100.7 F Last Admin: 06/30/19 17:27 Dose: 650 mg Documented by: Atorvastatin Calcium (Lipitor) 20 mg PO QHS [facility] Last Admin: 07/01/19 21:51 Dose: 20 mg Documented by: Calcium Carbonate (Tums) 500 mg PO DAILY [facility] Last Admin: 07/01/19 09:12 Dose: 500 mg Documented by: Furosemide (Lasix) 40 mg PO DAILY [facility] Glipizide (Glucotrol Xl) 5 mg PO DAILY@0800 [facility] Last Admin: 07/02/19 07:54 Dose: 5 mg Documented by: Glucagon () 1 mg IM .X1 PRN PRN Reason: Hypoglycemia Guaifenesin (Robitussin) 20 ml PO Q4H PRN PRN PRN Reason: COUGH Sodium Chloride () 250 mls @ 15 mls/hr IV .[id number] PRN PRN Reason: Saline Flush Sodium Chloride () 250 mls @ 15 mls/hr IV .[id number] PRN PRN Reason: Additional IVPB Infusion Dextrose (Dextrose 10%-Water) 250 mls @ 999 mls/hr IV .Q16M PRN; Protocol PRN Reason: HYPOGLYCEMIA Insulin Human Lispro (Humalog Kwikpen (Bkc)) 0 unit SC ACHS [facility]; Protocol Last Admin: 07/02/19 07:37 Dose: Not Given Documented by: Lisinopril (Zestril) 20 mg PO DAILY [facility] Last Admin: 07/01/19 09:12 Dose: 20 mg Documented by: Lorazepam (Ativan) 0.5 mg PO BID PRN PRN PRN Reason: ANXIETY [facility] Last Admin: 07/02/19 07:54 Dose: 1,000 mg Documented by: Metoprolol Succinate (Toprol Xl (Beta Francois)) 12.5 mg PO DAILY [facility] Metoprolol Tartrate (Lopressor (Beta Francois)) 50 mg PO BID [facility] Last Admin: 07/01/19 21:51 Dose: 50 mg Documented by: Nitroglycerin (Nitrostat) 0.4 mg SUBLINGUAL Q5M PRN PRN Reason: CARDIAC/CHEST PAIN [id number] Ethyl Esters (Lovaza) 1 gm PO BID [facility] Last Admin: 07/01/19 21:51 Dose: 1 gm Documented by: Ondansetron HCl (Zofran) 4 mg IV Q8H PRN PRN PRN Reason: NAUSEA/VOMITING Sodium Chloride () 10 - 40 ml IV UD PRN PRN Reason: SALINE FLUSH Last Admin: 07/01/19 16:38 Dose: 10 ml Documented by: Trazodone HCl (Desyrel) 50 mg PO QHS [facility] Last Admin: 07/01/19 21:51 Dose: 50 mg Documented by: Discharge Diet: Low fat/ Low Cholesterol Discharge Activity: Return to Normal Activity Weight Bearing Status: Weight bearing as tolerated Call your doctor if you observe: Shortness of breath, Swelling in the ankles, Chest pain, Increased palpitations (irregular heartbeat) Home Medications: Medications to take at Discharge Lorazepam [Ativan] 0.5 mg PO BID PRN PRN 10/26/16 glipiZIDE XL [Glucotrol Xl] 5 mg PO DAILY@0800 10/26/16 metFORMIN HCl [Glucophage] 1,000 mg PO BIDCM 10/26/16 Atorvastatin Calcium [Lipitor] 20 mg PO QHS 06/30/19 Calcium Carbonate/Vitamin D3 [Calcium 600 + Vit D Tablet] 1 ea PO DAILY 06/30/19 [place]-3 Fatty Acids/Fish Oil [Fish Oil 1,000 mg Capsule] 1 ea PO BID 06/30/19 traZODone [Desyrel] 50 mg PO QHS 06/30/19 Furosemide [Lasix] 40 mg PO DAILY #30 tab 07/02/19 Metoprolol Tartrate 25 mg PO BID #60 tab 07/02/19 Potassium Chloride [K-Tab ER] 20 meq PO DAILY #30 tablet.er 07/02/19 Quinapril HCl 10 mg PO DAILY #30 tab 07/02/19 Warfarin [Coumadin (PBKC)] 5 mg PO DAILY #30 tab 07/02/19 Following Prescrptions Were Given to Patient: Warfarin [Coumadin ([facility])] 5 mg PO DAILY #30 tab Transmission Status: Received by [facility] Potassium Chloride [K-Tab ER] 20 meq PO DAILY #30 tablet.er Transmission Status: Sent to [facility] Furosemide [Lasix] 40 mg PO DAILY #30 tab Transmission Status: Received by [facility] Metoprolol Tartrate 25 mg PO BID #60 tab Transmission Status: Received by [facility] [place] Quinapril HCl 10 mg PO DAILY #30 tab Transmission Status: Received by [facility] [place] Primary Care Physician: Kevin Albert III, MD [Primary Care Provider] - Please follow up with your Primary Care Physician in: within one week Patient Instructions: Taking SADIA Inhibitors, Taking?Coumadin, What Is Heart Failure?, What Is Atrial Flutter/Atrial Fibrillation? Disposition: Home Minutes spent on discharge:: 45 Patient Condition:: Stable Medical Necessity - Tobacco Use Smoking Status: Never smoker Meaningful Use Info Meaningful Use Diagnoses (Choose all that apply): CHF - CHF SADIA/ARB ordered at discharge?: Yes Documented LVEF (%): 65 Code Visit Inpatient E&M: 54093 Disch Hosp
[2019-07-02] MEDS: Omega-3 Acid Ethyl Esters 1 GM Capsule PO (09:58)
[2019-07-02] MEDS: Lisinopril 20 MG Tablet PO (09:58)
[2019-07-02] MEDS: Calcium Carbonate 500 MG Tablet PO (09:58)
--- NOTE | 2019-07-02 11:36 | PHA.DC.MC ---
Pharmacy Service has performed discharge medication reconciliation and counseling for this patient. 1. FUROSEMIDE 40MG PO DAILY 2. METOPROLOL TARTRATE 25MG PO BID 3. WARFARIN 5MG PO DAILY The patient's discharge medication list was reviewed for discrepancies and discrepancies were resolved. Home Medications Lorazepam [Ativan] 0.5 mg PO BID PRN PRN 10/26/16 glipiZIDE XL [Glucotrol Xl] 5 mg PO DAILY@0800 10/26/16 metFORMIN HCl [Glucophage] 1,000 mg PO BIDCM 10/26/16 Atorvastatin Calcium [Lipitor] 20 mg PO QHS 06/30/19 Calcium Carbonate/Vitamin D3 [Calcium 600 + Vit D Tablet] 1 ea PO DAILY 06/30/19 [place]-3 Fatty Acids/Fish Oil [Fish Oil 1,000 mg Capsule] 1 ea PO BID 06/30/19 traZODone [Desyrel] 50 mg PO QHS 06/30/19 Furosemide [Lasix] 40 mg PO DAILY #30 tab 07/02/19 Metoprolol Tartrate 25 mg PO BID #60 tab 07/02/19 Quinapril HCl 10 mg PO DAILY #30 tab 07/02/19 Warfarin [Coumadin (PBKC)] 5 mg PO DAILY #30 tab 07/02/19 The patient was counseled on the following discharge medications and changes in medications for homegoing were reviewed. The Reason for Use, instructions for use, and potential side effects were reviewed for all new medications. The patient's questions regarding all of their medications were answered. The patient was able to verbally demonstrate an understanding of their discharge medications.
[2019-07-02] MEDS: Metoprolol Tartrate 25 MG Tablet PO (11:52)
[2019-07-02] MEDS: Furosemide 40 MG Tablet PO (11:52)
[2019-07-02 11:55] LABS: Bedside Glucose 143 mg/dL (70-110)
== END 2019-07-02 16:05 | disposition home or self-care (01) | DRG 291 ==
LOC: ED 07:23 → PCU 08:54
PROVIDERS: Admitting Provider Student in an Organized Health Care Education/Training Program; Emergency Provider Emergency Medicine; Family Provider Family Medicine; PCP Family Medicine; Visit Provider Student in an Organized Health Care Education/Training Program
DX: I11.0 Hypertensive heart disease with heart failure (principal); I50.31 Acute diastolic (congestive) heart failure; I48.91 Unspecified atrial fibrillation; E11.9 Type 2 diabetes mellitus without complications; E87.6 Hypokalemia; R09.02 Hypoxemia; Z23 Encounter for immunization; Z79.84 Long term (current) use of oral hypoglycemic drugs
CPT/HCPCS: 36415; 71045; 80048; 80061; 82962; 83880; 84443; 84484; 85025; 85610; 87040; 87804; 93005; 93306; 94640; 97161; 97165; 97530; 99251; 99285; J7030; Q9957; 90686; A4216; G0463; J1940

== ENCOUNTER → 2019-07-09 11:08 | Outpatient (CLI) | payer OTHER, SELFPAY ==
[2019-06-30 09:27] VITALS: BMI 33.5
[2019-07-09 11:31] LABS: Prothrombin Time (Protime)PT. 91.3 SECONDS (11.7-14.9)
[2019-07-09 11:40] LABS: International Normalized Ratio 11.4
== END ==
PROVIDERS: Visit Provider Family Medicine
DX: I48.0 Paroxysmal atrial fibrillation (principal)
CPT/HCPCS: 85610

== ENCOUNTER → 2020-01-05 09:27 | Outpatient (CLI) | payer OTHER, SELFPAY ==
[2019-06-30 09:27] VITALS: BMI 33.5
== END ==
PROVIDERS: PCP Family Medicine; Referring Provider Family Medicine; Visit Provider Family Medicine
DX: Z11.59 Encounter for screening for other viral diseases (principal)
CPT/HCPCS: 87635; G2023; U0003

== ENCOUNTER → 2022-04-09 | Outpatient (CLI) | payer OTHER, SELFPAY ==
[2022-04-09 16:39] LABS: International Normalized Ratio 3.8
== END | disposition home or self-care (01) ==
LOC: LABSPEC 15:52
PROVIDERS: PCP Family Medicine; Referring Provider Family Medicine; Visit Provider Family Medicine
DX: I48.0 Paroxysmal atrial fibrillation (principal)
CPT/HCPCS: 85610

== ENCOUNTER → 2022-12-05 | Outpatient (CLI) | payer OTHER, SELFPAY ==
[2022-12-05 16:54] LABS: International Normalized Ratio 1.4; Prothrombin Time (Protime)PT. 17.2 SECONDS (11.7-14.9)
== END | disposition home or self-care (01) ==
LOC: LABSPEC 16:28
PROVIDERS: PCP Family Medicine; Visit Provider Family Medicine
DX: I48.0 Paroxysmal atrial fibrillation (principal)
CPT/HCPCS: 85610

== ENCOUNTER 2023-02-23 03:23 | Inpatient (IN) | payer OTHER, SELFPAY ==
[2023-02-23] VITALS (14 sets, daily range): BP systolic 95–158; BP diastolic 54–82; PULSE 61–87; RESP 18–20; TEMP 36.2–36.9; O2SAT 86–100; BMI 29.0; BMI 27.9
--- NOTE | 2023-02-23 03:42 | EDS_ITS ---
HPI History of Present Illness Chief Complaint: Shortness of Breath Informant: patient Onset/Context/Timing Onset: Yesterday Context: gradual Timing: Intermittent Quality: Positive for Dyspnea on exertion and Orthopnea Current Severity: Mild Maximum Severity: Severe Worsened by: Exertion and Lying flat Relieved by: Oxygen (by EMS) Associated Symptoms Negative for cough, fever or chills Chest Pain: Positive for None Narrative Narrative: 87-year-old female living at home with her daughter has been feeling short of breath especially with exertion or lying flat for the past day or 2, this mornin g around 2:30 AM she came and woke her daughter up because she was having more trouble breathing. She denies any palpitations, chest discomfort, fevers, chills, cough, other recent URI symptoms, or swelling in her extremities. She has a history of congestive heart failure, in the past when she has had issues with that she has had swelling in her extremities. She is currently on Lasix in the morning and Zaroxolyn at night, she has been compliant with these medications, she still urinates really well when she takes them, and has had no recent changes, just changed warfarin to Eliquis within the last month. [facility] Medical History (Updated 02/23/23 @ 05:[address] Jordy Rosas MD) Atrial fibrillation Congestive heart failure Hard of hearing Home Medications glipizide 5 mg tablet, extended release 24 hr 2.5 mg PO DAILY@0800 diabetes 10/26/16 [History Last Taken Unknown] metformin 500 mg tablet 1,000 mg PO BIDCM DAIBETES 10/26/16 [History Last Taken Unknown] atorvastatin 20 mg tablet 20 mg PO QHS cholesterol 06/30/19 [History Last Taken Unknown] calcium carbonate-vitamin D3 600 mg-125 unit tablet 1 ea PO DAILY supplement 06/30/19 [History Last Taken Unknown] omega-3 fatty acids-fish oil 340 mg-1,000 mg capsule 1 ea PO BID supplement 06/30/19 [History Last Taken Unknown] potassium chloride 20 mEq tablet,extended release 20 meq PO DAILY ##30 07/02/19 [Rx Last Taken Unknown] apixaban 2.5 mg tablet (Eliquis) 2.5 mg PO BID 02/23/23 [History Last Taken Unknown] aspirin 81 mg capsule 81 mg PO DAILY 02/23/23 [History Last Taken Unknown] cyanocobalamin (vitamin B-12) 1,000 mcg tablet 100 mcg PO DAILY 02/23/23 [History Last Taken Unknown] ferrous sulfate 325 mg (65 mg iron) tablet (FeroSul) 325 mg PO DAILY 02/23/23 [History Last Taken Unknown] furosemide 40 mg tablet 20 mg PO DAILY 02/23/23 [History Last Taken Unknown] magnesium chloride 71.5 mg (magnesium chloride) tablet,delayed release (Slow- Mag) 143 mg PO BID 02/23/23 [History Last Taken Unknown] metolazone 2.5 mg tablet 2.5 mg PO DAILY 02/23/23 [History Last Taken Unknown] metoprolol tartrate 25 mg tablet 50 mg PO BID 02/23/23 [History Last Taken Unknown] omeprazole 20 mg capsule,delayed release 20 mg PO DAILY 02/23/23 [History Last Taken Unknown] Allergy/AdvReac Type Severity Reaction Status Date / Time decongestant Allergy Intermediate palpitation Uncoded 02/23/23 03:24 s Surgical History Aortic valve replaced Social History Smoking Status: Never smoker ROS ROS ED Constitutional Constitutional ED: Denies chills or fever(s) Eyes Eyes: Denies change in vision or diplopia ENT ENT ED: Denies rhinorrhea or sore throat Cardiovascular Cardiovascular: Reports orthopnea; Denies chest pain, leg edema or palpitations Respiratory/Chest Respiratory/Chest: Reports dyspnea, dyspnea on exertion and orthopnea; Denies cough Gastrointestinal Gastrointestinal: Denies abdominal pain, diarrhea, nausea or vomiting Genitourinary Genitourinary ED: Denies dysuria or hematuria Musculoskeletal Musculoskeletal: Denies back pain or neck pain Integumentary Denies abscess or rash Neurologic Neurologic: Denies headache(s), paresthesias or weakness Psychiatric Psychiatric: Denies anxiety or suicidal thoughts EXAM Physical Exam Const Vital Signs: 02/23/23 03:26 02/23/23 03:30 02/23/23 04:19 Temperature 98.5 F Temperature Source Oral Pulse Rate 75 Respiratory Rate 18 Respiratory Effort Short of Breath Respiratory Pattern Blood Pressure 158/82 H Blood Pressure Mean 107 Pulse Ox 89 100 Oxygen Delivery Method Room Air Nasal Cannula Oxygen Flow Rate (L/min) 2 02/23/23 04:06 02/23/23 05:24 02/23/23 05:20 Temperature 98.5 F Temperature Source Oral Pulse Rate 87 66 Respiratory Rate 20 H 20 H Respiratory Effort Respiratory Pattern Normal Blood Pressure 123/57 H Blood Pressure Mean 79 Pulse Ox 96 86 Oxygen Delivery Method Nasal Cannula Room Air Oxygen Flow Rate (L/min) 2 Positive well nourished and well developed General Appearance ED: well developed and NAD HEENT Reports moist mucous membranes normocephalic and atraumatic Eyes PERRL and EOMs intact bilaterally Neck full ROM, no lymphadenopathy and supple Neck Narrative: +JVD Resp normal respiratory effort Resp Narrative: Bibasilar Rales, diffuse end expiratory wheezes Cardio Rhythm: abnormal rhythm irregularly irregular Heart Sounds: murmur systolic II/ soft GI non-tender and non-distended Auscultation: normoactive bowel sounds Palpation: soft Back/Spine no CVA tenderness General Back: other FROM Extremity normal to inspection General Extremety ED: Negative for edema, pulses abnormal or tenderness General Extremity: Negative for edema or pulses abnormal Neuro oriented x3, CN's II-XII intact bilaterally and no sensory deficits noted Sensorium / Orientation: awake and alert Motor Exam: strength 5/5 throughout Psych mental status grossly normal Skin no rashes or lesions noted and no wounds MDM MDM MDM Narrative Medical decision making narrative: Patient feeling better after a duo nebulizer treatment. Her pulmonary exam is concerning for CHF, but her 1 view chest x-ray does not appear to show pulmonary edema on my interpretation. Radiology in agreement that it is unremarkable. The rest of her labs are unremarkable, arguing against infection without a leukocytosis. Her troponin is within normal limits and she has had symptoms for over 24 hours. She does have some mild VINCENT, with mild prerenal azotemia. This is nonspecific but could be due to lower flow if due to acute on chronic CHF. I turned her oxygen off, and within several minutes she desatted down to 86% on room air, requiring 2 L nasal cannula back on to keep her above 90%. A BNP was ordered, but the machine is apparently down and will not be resulted soon. She is anticoagulated, so I do not think we need to consider acute PE further. Clinically, since she does not have a history of lung disease such as COPD and no symptoms or radiographic evidence of infection, my impression is that this is most likely related to the patient's CHF. Given her hypoxemia, given IV Lasix and will be admitted to the hospital. History & Record Review Additional record(s) reviewed:: Prior outpatient record (Last echo 06/30/2019 showing some diastolic dysfunction and multiple valvular insufficiencies, EF 65% with normal LV systolic function) Lab Data Attestation: I reviewed the patient's lab results. Labs: Laboratory Results - last 24 hr 02/23/23 03:35 WBC 7.7 RBC 3.45 L Hgb 10.1 L Hct 32.8 L MCV 95.1 MCH 29.3 MCHC 30.8 L RDW Std Deviation 44.2 H RDW Coeff of Jim 12.9 Plt Count 177 MPV 9.9 Immature Gran % (Auto) 0.400 Neut % (Auto) 69.6 Lymph % (Auto) 19.2 [place] % (Auto) 7.6 Eos % (Auto) 2.6 Baso % (Auto) 0.6 Absolute Neuts (auto) 5.4 Absolute Lymphs (auto) 1.48 Nucleated RBC % 0 Sodium 137 Potassium 4.6 Chloride 102 Carbon Dioxide 29.0 Anion Gap 6 BUN 23 H Creatinine 1.08 H Estim Creat Clear Calc 30.12 Est GFR (MDRD) Af Amer 62 Est GFR (MDRD) Non-Af 51 L BUN/Creatinine Ratio 21.3 H Glucose 143 H Calcium 8.9 Troponin I High Sens 20 Radiography Diagnostic Testing: Clinical Impression(s) from Imaging Studies Chest X-Ray 02/23/23 03:55 IMPRESSION: No acute findings in the chest. Electronically Signed: Pedrito Carty MD at 4:16 EDT , Rhythm Strip Rhythm Strip: A-fib Rate: 75 Ectopy: None EKG Initial EKG: Attestation: I personally reviewed and interpreted this EKG as follows: Interpretation: No Acute Injury Pattern, Atrial Fibrillation and LBBB Prior EKG tracings: available for review Prior: Changed (Prior EKG from 06/30/2019 showing A-fib and narrow QRS without bundle branch block) Management Discussion w/another healthcare provider: Hospitalist Discharge Plan Dx/Rx/DC Orders Clinical Impression: Acute exacerbation of CHF (congestive heart failure), Hypoxemia, Atrial fibrillation Disposition Disposition: Acute Care Hospital [facility]
[2023-02-23 03:52] LABS: Absolute Lymphocyte Count 1.48 X10^3/uL (0.83-4.51); Absolute Neutrophil Count 5.4 X10^3/uL (2.0-7.7); Basophil# 0.05 X10^3/uL; Basophil% 0.6 % (0-1); Eosinophils% 2.6 % (0-5); Hematocrit 32.8 % (37-47); Hemoglobin 10.1 g/dL (12.0-15.0); Lymphocyte # 1.48 X10^3/ul (0.83-4.51); Lymphocyte % 19.2 % (19-41); Mean Corp Hgb Conc 30.8 g/dL (32-36); Mean Corpuscular Hgb 29.3 pg (27.0-32.0); Mean Corpuscular Volume 95.1 fL (81-99); Mean Platelet Vol. 9.9 fl (6.2-12.0); Monocyte# 0.59 X10^3/uL; Monocyte% 7.6 % (0-10); NRBC Flagged by Analyzer 0 % (0-5); Neutrophil # 5.37 X10^3/uL (2.7-7.7); Neutrophil % 69.6 % (47-70); Platelet Count 177 K/mm3 (150-450); RBC Distribution Width CV 12.9 % (11.6-14.6); RBC Distribution Width SD 44.2 fl (35.1-43.9); Red Blood Count 3.45 M/mm3 (4.2-5.4); White Blood Count 7.7 K/mm3 (4.4-11.0)
--- NOTE | 2023-02-23 03:55 | RAD_ITS ---
EXAM: XR CHEST, 2 VIEWS CLINICAL INDICATION: sob TECHNIQUE: Frontal and lateral views of the chest. COMPARISON: Single view chest 06/30/2019 FINDINGS: LUNGS AND PLEURAL SPACES: Unremarkable. No consolidation or edema. No pneumothorax. No effusion. HEART: Mild enlargement of the cardiac silhouette. MEDIASTINUM: Central airways and mediastinal contour are unremarkable. BONES/JOINTS: Degenerative changes of the spine. SOFT TISSUES: Unremarkable. VASCULATURE: Prior surgical changes at the aortic root. RAD/Chest PA and Lateral IMPRESSION: No acute findings in the chest. Electronically Signed: Pedrito Carty MD at 4:16 EDT ,
[2023-02-23] MEDS: Ipratropium/Albuterol Sulfate 3 ML AMPUL.NEB INHALATION (04:06)
[2023-02-23 04:11] LABS: Anion Gap 6 (5-15); BUN 23 mg/dL (7-18); BUN/Creat Ratio 21.3 RATIO (10-20); Calcium,Total 8.9 mg/dL (8.5-10.1); Chloride 102 mmol/L (98-107); Creatinine, Serum 1.08 mg/dL (0.55-1.02); EST Glomerular Filtration Rate 51 mL/min (>60); Est Glom Filt Rate - Afr Amer 62 mL/min (>60); Estimated Creatinine Clearance 30.12 ml/min; Glucose 143 mg/dL (74-106); Potassium 4.6 mmol/L (3.5-5.1); Sodium Level 137 mmol/L (136-145); Troponin-I HS 20 pg/mL (3.0-54.0)
--- NOTE | 2023-02-23 06:38 | PCM.HP.STD ---
HPI - General General Date of Admission: 02/23/23 Date of Service: 02/23/23 Chief Complaint: Dyspnea HPI Narrative FADI CHILDERS, is a 87 F with a significant history of Diabetes mellitus; diastolic heart failure and bovine aortic valve who presents to the emergency department with 1 to 2-day history of shortness of breath. Her shortness of breath is with exertion. Associated with her symptoms is paroxysmal nocturnal dyspnea and orthopnea. Overnight her shortness of breath got worse so she came to emergency department. Further she reports fatigue. She denies any change in her weight. She denies any edema. Per emergency department doctor was hypoxic at the ED with oxygen saturation around 86 to 88% so a decision was made for patient to stay at the hospital while nasal cannula oxygen was placed in her nostrils. She does not use oxygen at baseline. Reportedly she was wheezing at the ED. She was given DuoNeb and IV Lasix at the ED. [facility] Medical History Atrial fibrillation Congestive heart failure Hard of hearing Home Medications glipizide 5 mg tablet, extended release 24 hr 2.5 mg PO DAILY@0800 diabetes 10/26/16 [History Last Taken Unknown] metformin 500 mg tablet 1,000 mg PO BIDCM DAIBETES 10/26/16 [History Last Taken Unknown] atorvastatin 20 mg tablet 20 mg PO QHS cholesterol 06/30/19 [History Last Taken Unknown] calcium carbonate-vitamin D3 600 mg-125 unit tablet 1 ea PO DAILY supplement 06/30/19 [History Last Taken Unknown] omega-3 fatty acids-fish oil 340 mg-1,000 mg capsule 1 ea PO BID supplement 06/30/19 [History Last Taken Unknown] potassium chloride 20 mEq tablet,extended release 20 meq PO DAILY ##30 07/02/19 [Rx Last Taken Unknown] apixaban 2.5 mg tablet (Eliquis) 2.5 mg PO BID 02/23/23 [History Last Taken Unknown] aspirin 81 mg capsule 81 mg PO DAILY 02/23/23 [History Last Taken Unknown] cyanocobalamin (vitamin B-12) 1,000 mcg tablet 100 mcg PO DAILY 02/23/23 [History Last Taken Unknown] ferrous sulfate 325 mg (65 mg iron) tablet (FeroSul) 325 mg PO DAILY 02/23/23 [History Last Taken Unknown] furosemide 40 mg tablet 20 mg PO DAILY 02/23/23 [History Last Taken Unknown] magnesium chloride 71.5 mg (magnesium chloride) tablet,delayed release (Slow-Mag) 143 mg PO BID 02/23/23 [History Last Taken Unknown] metolazone 2.5 mg tablet 2.5 mg PO DAILY 02/23/23 [History Last Taken Unknown] metoprolol tartrate 25 mg tablet 50 mg PO BID 02/23/23 [History Last Taken Unknown] omeprazole 20 mg capsule,delayed release 20 mg PO DAILY 02/23/23 [History Last Taken Unknown] Allergy/AdvReac Type Severity Reaction Status Date / Time decongestant Allergy Intermediate palpitation Uncoded 02/23/23 03:24 s Family History Other Cancer Surgical History Aortic valve replaced Social History Smoking Status: Never smoker ROS ROS Narrative Pertinent positives and pertinent negatives as noted in HPI. All other systems were reviewed and are negative Vital Signs Vital Signs Vital Signs: 02/23/23 03:26 02/23/23 03:30 02/23/23 04:19 Temperature 98.5 F Temperature Source Oral Pulse Rate 75 Respiratory Rate 18 Respiratory Effort Short of Breath Respiratory Pattern Blood Pressure 158/82 H Blood Pressure Mean 107 Pulse Ox 89 100 Oxygen Delivery Method Room Air Nasal Cannula Oxygen Flow Rate (L/min) 2 02/23/23 04:06 02/23/23 05:24 02/23/23 05:20 Temperature 98.5 F Temperature Source Oral Pulse Rate 87 66 Respiratory Rate 20 H 20 H Respiratory Effort Respiratory Pattern Normal Blood Pressure 123/57 H Blood Pressure Mean 79 Pulse Ox 96 86 Oxygen Delivery Method Nasal Cannula Room Air Oxygen Flow Rate (L/min) 2 02/23/23 06:24 Temperature 98 F Temperature Source Oral Pulse Rate 68 Respiratory Rate 18 Respiratory Effort Respiratory Pattern Blood Pressure 121/63 H Blood Pressure Mean 82 Pulse Ox 98 Oxygen Delivery Method Nasal Cannula Oxygen Flow Rate (L/min) 2 Weight Weight: 72 kg Body Mass Index (BMI) 29.0 Physical Exam Narrative Physical exam: General: Well-nourished, well-developed. Head: Normocephalic, atraumatic, no tenderness Eyes: Vision is grossly intact. EOMI ENT, no trauma, moist mucous membranes, no rhinorrhea Neck: Nontender, No thyromegaly. CVS: Irregular rate and rhythm. S1-S2 present. No murmur, gallop or rub. Respiratory : Rales bilaterally, chest wall nontender Abdomen: Soft, nontender, nondistended, normal bowel sounds, no masses : Deferred Back: Nontender, no CVA tenderness Extremities: Nontender full range of motion, no trauma Skin: Normal color, no trauma, abrasions Neuro: Alert, oriented, cranial nerves II through XII grossly intact. Psychiatry: Normal mood. Normal affect. Not depressed. Not anxious. Results Lab / Micro Data 02/23/23 03:35 02/23/23 03:35 Labs: Laboratory Results - last 24 hr 02/23/23 03:35: WBC 7.7, RBC 3.45 L, Hgb 10.1 L, Hct 32.8 L, MCV 95.1, MCH 29.3, MCHC 30.8 L, RDW Std Deviation 44.2 H, RDW Coeff of Jim 12.9, Plt Count 177, MPV 9.9, Immature Gran % (Auto) 0.400, Neut % (Auto) 69.6, Lymph % (Auto) 19.2, [place] % (Auto) 7.6, Eos % (Auto) 2.6, Baso % (Auto) 0.6, Absolute Neuts (auto) 5.4, Absolute Lymphs (auto) 1.48, Nucleated RBC % 0, Sodium 137, Potassium 4.6, Chloride 102, Carbon Dioxide 29.0, Anion Gap 6, BUN 23 H, Creatinine 1.08 H, Estim Creat Clear Calc 30.12, Est GFR (MDRD) Af Amer 62, Est GFR (MDRD) Non-Af 51 L, BUN/Creatinine Ratio 21.3 H, Glucose 143 H, Calcium 8.9, Troponin I High Sens 20 Rhythm Strip Rhythm Strip: A-fib Rate: 75 Ectopy: None Radiology Impression Chest X-Ray 02/23/23 03:55 IMPRESSION: No acute findings in the chest. 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: without snf use Diabetes mellitus type: type 2 Qualified Code(s): E11.9 - Type 2 diabetes mellitus without complications (4) Atrial fibrillation: QUALIFIERS: Atrial fibrillation type: persistent (not longstanding) Qualified Code(s): I48.19 - Other persistent atrial fibrillation PLAN: Plan Acute Exacerbation of heart failure With preserved ejection fraction Placed on monitored bed on Progressive care unit When patient was actually seen patient was saturating at 98 to 99% on 2 L of cannula oxygen and she can be weaned off Weight on admission to the floor; and then daily Strict I&O's Radiologist impression of chest x-ray: Mild enlargement of the cardiac silhouette heart. No acute findings in the chest Chest x-ray was independently interpreted. Agrees with the interpretation. EKG independently reviewed confirms Atrial fibrillation but with no rapid ventricular response. BNP could not be done because machine is broken down. On home p.o. Lasix and metolazone. IV Lasix given at the emergency department and continued. Metolazone continued. Trend BMP. Last echocardiogram on file was on 06/30/2019:Normal EF. Moderate 2+ tricuspid valve insufficiency. Mild diffuse aortic valve thickening. Mild diffuse aortic valve calcification. Mild aortic stenosis. Trivial aortic valve insufficiency. Mild pulmonic valve insufficiency. Right ventricular systolic pressure was 82 mmHg. Transthoracic echocardiogram to evaluate left ventricular wall motion and systolic function ordered. Fluid restriction of 1500 mls daily cardiac diet ordered. Chronic persistent A-fib Stable Metoprolol continued. Apixaban continued VINCENT Creatinine on presentation was 1.08. Her creatinine on 07/02/2019 was 0.73 and on 07/01/2021 was 0.76. IV Lasix and metolazone as above. Trend BMP. Avoid nephrotoxic's. Diabetes mellitus Blood glucose is stable. Glipizide continued. Metformin held. Monitor Accu-Cheks Correction scale insulin ordered. DVT prophylaxis Eliquis continued for A-fib. Time spent in the patient's overall evaluation,decision-making process, review of diagnostic data, adjustment of management, discussion with other providers, nursing nursing and ancillary staff involved in patient's care documentation, 70 minutes. Charges/Coding Visit Charges Inpatient E&M: 64115 Init Hosp L3
[2023-02-23] MEDS: Furosemide 40 MG/4 ML Vial IV ×2 (06:55→17:33)
--- NOTE | 2023-02-23 07:05 | NURSING ---
108 AGYEPONG CHF EXAC, HYPOXEMIA
--- NOTE | 2023-02-23 07:35 | ECHOD_ITS ---
Reason For Study: CHF Procedure This was a 2D Doppler, Color Flow transthoracic echocardiogram. Exam performed portable in patient room. Left Ventricle Normal LV size. The estimated ejection fraction is 70 %. Unable to assess diastolic dysfunction. No regional wall motion abnormalities noted. Right Ventricle Normal RV size. Normal systolic function. Atria The left atrium is severely enlarged. The right atrium is severely enlarged. No doppler evidence for ASD. Mitral Valve There is moderate mitral annular calcification. There is no mitral valve stenosis. Moderate (2+) mitral valve insufficiency. Tricuspid Valve There is no tricuspid stenosis. Moderate (2+) tricuspid valve insufficiency. Pulmonary artery systolic pressure is 90 mmHg. Aortic Valve Mild aortic stenosis. Mild-Moderate (1-2+) aortic valve insufficiency. Stable appearing bioprosthetic aortic valve apparatus. Pulmonic Valve There is no pulmonic valvular stenosis. Trivial pulmonic valve insufficiency. Great Vessels Normal aortic root. Pericardium/Pleural No pericardial effusion. MMode/2D Measurements & Calculations LVIDd: 4.2 cm IVSd: 1.3 cm LVOT diam: 1.9 cm LVIDs: 2.5 cm LVPWd: 1.2 cm LVOT area: 2.8 cm2 RVDd: 3.7 cm FS: 39.5 % Ao root diam: 3.5 cm LAV(MOD-bp): 89.8 ml LVAd ap4: 14.1 cm2 LAV(MOD-bp) Indexed: 51.9 ml/m2 LVLd ap4: 5.6 cm LAV(MOD-sp2): 89.2 ml EDV(MOD-sp4): 30.6 ml LAV(MOD-sp4): 88.8 ml EDV(sp4-el): 30.1 ml LVAs ap4: 7.5 cm2 LVLs ap4: 4.5 cm ESV(MOD-sp4): 10.9 ml ESV(sp4-el): 10.6 ml EF(MOD-sp4): 64.4 % EF(sp4-el): 64.7 % SV(MOD-sp4): 19.7 ml SV(sp4-el): 19.5 ml LA A4 area: 27.3 cm2 LA dimension(2D): 4.7 cm RA A4 area: 23.3 cm2 Doppler Measurements & Calculations MV E max tom: 150.1 cm/sec Lat Peak E' Tom: 12.0 cm/sec Med Peak E' Tom: 5.2 cm/sec E/E' lat: 12.5 E/E' med: 28.9 MV V2 max: 162.7 cm/sec Ao V2 max: 311.6 cm/sec AI max tom: 326.5 cm/sec MV max P.6 mmHg Ao max P.9 mmHg AI max P.7 mmHg MV V2 mean: 67.9 cm/sec Ao V2 mean: 214.8 cm/sec MV mean P.7 mmHg Ao mean P.4 mmHg AI dec slope: 147.5 cm/sec2 MV V2 VTI: 33.1 cm Ao V2 VTI: 64.3 cm AI P1/2t: 648.2 msec AV (velocity ratio): 0.62 MVA(VTI): 3.4 cm2 AYANNA(I,D): 1.7 cm2 AYANNA(V,D): 1.6 cm2 LV V1 max: 181.3 cm/sec SV(LVOT): 112.0 ml PA V2 max: 74.6 cm/sec LV V1 max P.2 mmHg LV V1 mean P.4 mmHg LV V1 mean: 138.9 cm/sec LV V1 VTI: 40.1 cm TR max tom: 489.0 cm/sec TR max P.7 mmHg ECHO/Echo Complete Interpretation Summary The estimated ejection fraction is 70 %. Unable to assess diastolic dysfunction. The left atrium is severely enlarged. The right atrium is severely enlarged. Moderate (2+) mitral valve insufficiency. Mild-Moderate (1-2+) aortic valve insufficiency. Ordering Physician: Vishal Marie Referring Physician: Marcello Avelar Performed By: Sadia Angel, NAIDACS, RVT
--- NOTE | 2023-02-23 07:49 | PCM.PN.HOSP ---
Reason for Visit Reason for Visit: Diagnoses Type 2 diabetes mellitus without complications (02/23/23) Other persistent atrial fibrillation (02/23/23) Acute on chronic diastolic (congestive) heart failure (02/23/23) Subjective Subjective Still with PHIPPS just walking to the toilet. Better at rest. Objective Data Objective Data Vital Signs: Vital Signs Temp Pulse Resp BP Pulse Ox O2 Del Method O2 Flow Rate 36.6 C 68 18 121/63 H 98 Nasal Cannula 2 02/23/23 06:24 02/23/23 06:24 02/23/23 06:24 02/23/23 06:24 02/23/23 06:24 02/23/23 06:24 02/23/23 06:24 Oxygen Flow Rate (L/min) 2 Oxygen Delivery Method Nasal Cannula Weight: 69.3 kg Body Mass Index (BMI) 27.9 Lab / Micro Data 02/23/23 03:35 02/23/23 03:35 Labs: Laboratory Results - last 24 hr 02/23/23 03:35: WBC 7.7, RBC 3.45 L, Hgb 10.1 L, Hct 32.8 L, MCV 95.1, MCH 29.3, MCHC 30.8 L, RDW Std Deviation 44.2 H, RDW Coeff of Jim 12.9, Plt Count 177, MPV 9.9, Immature Gran % (Auto) 0.400, Neut % (Auto) 69.6, Lymph % (Auto) 19.2, [place] % (Auto) 7.6, Eos % (Auto) 2.6, Baso % (Auto) 0.6, Absolute Neuts (auto) 5.4, Absolute Lymphs (auto) 1.48, Nucleated RBC % 0, Sodium 137, Potassium 4.6, Chloride 102, Carbon Dioxide 29.0, Anion Gap 6, BUN 23 H, Creatinine 1.08 H, Estim Creat Clear Calc 30.12, Est GFR (MDRD) Af Amer 62, Est GFR (MDRD) Non-Af 51 L, BUN/Creatinine Ratio 21.3 H, Glucose 143 H, Calcium 8.9, Troponin I High Sens 20 Radiography Diagnostic Testing: Radiology Impression Chest X-Ray 02/23/23 03:55 IMPRESSION: No acute findings in the chest. Electronically Signed: Pedrito Carty MD at 4:16 EDT , Rhythm Strip Rhythm Strip: A-fib Rate: 75 Ectopy: None Physical Exam Const alert and no apparent distress Resp normal respiratory effort, no retractions, no use of accessory muscles and clear to auscultation bilaterally Cardio regular rate, regular rhythm, S1 normal heart sound and S2 normal heart sound GI normal to inspection, nondistended, normoactive bowel sounds, soft to palpation, non-tender and non-distended Extremity normal to inspection and full ROM Assessment & Plan Assessment/Plan (1) Acute exacerbation of CHF (congestive heart failure): QUALIFIERS: Heart failure type: diastolic Qualified Code(s): I50.33 - Acute on chronic diastolic (congestive) heart failure PLAN: Acute HFpEF Last echocardiogram on file was on 06/30/2019:Normal EF. Moderate 2+ tricuspid valve insufficiency. Mild diffuse aortic valve thickening. Mild diffuse aortic valve calcification. Mild aortic stenosis. Trivial aortic valve insufficiency. Mild pulmonic valve insufficiency. Right ventricular systolic pressure was 82 mmHg. Continue IV furosemide 40 BID CXR shows bilateral edema. Continue Metolazone Check echo Fluid restriction PLAN: Plan Chronic stable conditions: Chronic persistent A-fib: Stable. Metoprolol continued. Apixaban continued DM2: continue glipizide and metformin. SSI. VINCENT: ruled out. DVT prophylaxis: not indicated as pt on apixaban. Charges/Coding Visit Charges Inpatient E&M: 91310 Subs Hosp L2
--- NOTE | 2023-02-23 09:30 | CASEMGMT ---
RN DINORAH Face to Face with patient for initial transition planning/care coordination assessment. RN CM introduced self and role at [facility]. Patient lying in bed, alert and oriented, daughter at bedside. Patient willing to participate in assessment and is able to answer all questions appropriately. Care providers, pharmacy, and demographics verified. Patient wishes to discharge home, denies need for home health at this time. Patient states she has no further needs or concerns at this time. CM to follow for discharge planning needs that may arise. PCP: Rosio Specialists: José Miguel manager employee relations [facility] Preferred Pharmacy: [facility] Insurance: [facility] Prescription Benefit: none Living Will/HPOA: yes, daughter Triny Dunn HPOA LNOK: daughters Living Arrangements: Patient lives with daughter in a single story home with no steps to enter. Patient states she is independent at home. Transportation: Driving Service DME/HHC: Patient has shower chair, raised toilet, cane, walker, grab bars, glucometer. Patient has access to generator. No previous HHC or SNF. Disposition Plan: Patient to discharge home with family support and follow-up plans in place. Will monitor for home oxygen at discharge. Leyla CALVO, RN, CM
[2023-02-23] MEDS: Ferrous Sulfate 325 MG Tablet PO (09:45)
[2023-02-23] MEDS: Magnesium Chloride 64 MG Delay Rel.Tablet 128 MG PO ×2 (09:45→21:37)
[2023-02-23] MEDS: Omega-3 Acid Ethyl Esters 1 GM Capsule PO ×2 (09:45→21:38)
[2023-02-23] MEDS: Pantoprazole Sodium 20 MG Tablet PO (09:45)
[2023-02-23] MEDS: glipiZIDE 2.5 MG TAB.ER.24 PO (09:46)
[2023-02-23] MEDS: Calcium Carb/Vitamin D 1 TABLET Tablet PO (09:46)
[2023-02-23] MEDS: Metoprolol Tartrate 50 MG Tablet PO ×2 (09:46→21:38)
[2023-02-23] MEDS: Cyanocobalamin 500 MCG Tablet 1000 MCG PO (09:47)
[2023-02-23] MEDS: Aspirin 81 MG TAB.CHEW PO (09:47)
[2023-02-23] MEDS: Potassium Chloride Oral Tablet 20 MEQ PO (09:47)
[2023-02-23] MEDS: APIXABAN 2.5 MG TABLET (WCH) PO ×2 (09:48→21:37)
[2023-02-23] MEDS: Metolazone 2.5 MG Tablet PO (09:50)
[2023-02-23 10:18] LABS: Bedside Glucose 109 mg/dL (74-106)
[2023-02-23 11:53] LABS: Bedside Glucose 148 mg/dL (74-106)
[2023-02-23 17:01] LABS: Bedside Glucose 90 mg/dL (74-106)
[2023-02-23] MEDS: 0.9% Saline Lock 10 ML Syringe IV ×2 (17:33→21:36)
[2023-02-23] MEDS: Atorvastatin Calcium 20 MG Tablet PO (21:38)
[2023-02-23] MEDS: Insulin Lispro 100 UNIT/ML INSULN.PEN SC (21:43)
[2023-02-23 22:11] LABS: Bedside Glucose 157 mg/dL (74-106)
[2023-02-24] VITALS (8 sets, daily range): BP systolic 99–122; BP diastolic 60–73; PULSE 66–80; RESP 18; TEMP 36.5–36.8; O2SAT 88–99; BMI 27.4
[2023-02-24 06:35] LABS: Absolute Lymphocyte Count 1.16 X10^3/uL (0.83-4.51); Absolute Neutrophil Count 5.5 X10^3/uL (2.0-7.7); Basophil# 0.02 X10^3/uL; Basophil% 0.3 % (0-1); Eosinophil# 0.14 X10^3/uL; Eosinophils% 1.8 % (0-5); Hematocrit 29.7 % (37-47); Hemoglobin 9.4 g/dL (12.0-15.0); Lymphocyte # 1.16 X10^3/ul (0.83-4.51); Lymphocyte % 15.3 % (19-41); Mean Corp Hgb Conc 31.6 g/dL (32-36); Mean Corpuscular Hgb 29.5 pg (27.0-32.0); Mean Corpuscular Volume 93.1 fL (81-99); Monocyte# 0.73 X10^3/uL; Monocyte% 9.6 % (0-10); NRBC Flagged by Analyzer 0 % (0-5); Neutrophil % 72.5 % (47-70); Platelet Count 181 K/mm3 (150-450); RBC Distribution Width SD 43.8 fl (35.1-43.9); Red Blood Count 3.19 M/mm3 (4.2-5.4); White Blood Count 7.6 K/mm3 (4.4-11.0)
[2023-02-24 06:53] LABS: Bedside Glucose 127 mg/dL (74-106)
[2023-02-24 07:09] LABS: Anion Gap 5 (5-15); BUN 26 mg/dL (7-18); Calcium,Total 9.1 mg/dL (8.5-10.1); Chloride 97 mmol/L (98-107); Creatinine, Serum 0.96 mg/dL (0.55-1.02); EST Glomerular Filtration Rate 58 mL/min (>60); Est Glom Filt Rate - Afr Amer 71 mL/min (>60); Estimated Creatinine Clearance 33.89 ml/min; Glucose 142 mg/dL (74-106); Potassium 3.5 mmol/L (3.5-5.1); Sodium Level 135 mmol/L (136-145)
--- NOTE | 2023-02-24 07:16 | PN.HOSP_ITS ---
Reason for Visit Reason for Visit: Diagnoses Type 2 diabetes mellitus without complications (02/23/23) Other persistent atrial fibrillation (02/23/23) Acute on chronic diastolic (congestive) heart failure (02/23/23) Subjective Subjective Feeling better. Still with some PIHPPS. Objective Data Objective Data Vital Signs: Vital Signs Temp Pulse Resp BP Pulse Ox O2 Del Method O2 Flow Rate 36.8 C 71 18 109/73 96 Nasal Cannula 2 02/24/23 03:50 02/24/23 03:50 02/24/23 03:50 02/24/23 03:50 02/24/23 03:50 02/24/23 03:50 02/24/23 03:50 Oxygen Flow Rate (L/min) 2 Oxygen Delivery Method Nasal Cannula Weight: 68.1 kg Body Mass Index (BMI) 27.4 Intake & Output: Intake and Output for Last 24 Hours 02/22/23 02/23/23 02/24/23 23:59 23:59 23:59 Intake Total 420 / 420 60 / 60 Output Total 600 / 600 Balance -180 / -180 60 / 60 Lab / Micro Data 02/24/23 05:45 02/24/23 05:45 Labs: Laboratory Results - last 24 hr 02/23/23 09:43: POC Glucose 109 H 02/23/23 11:28: POC Glucose 148 H 02/23/23 16:37: POC Glucose 90 02/23/23 21:35: POC Glucose 157 H 02/24/23 05:45: WBC 7.6, RBC 3.19 L, Hgb 9.4 L, Hct 29.7 L, MCV 93.1, MCH 29.5, MCHC 31.6 L, RDW Std Deviation 43.8, RDW Coeff of Jim 13.0, Plt Count 181, MPV 10.0, Immature Gran % (Auto) 0.500, Neut % (Auto) 72.5 H, Lymph % (Auto) 15.3 L, [place] % (Auto) 9.6, Eos % (Auto) 1.8, Baso % (Auto) 0.3, Absolute Neuts (auto) 5.5, Absolute Lymphs (auto) 1.16, Nucleated RBC % 0, Sodium 135 L, Potassium 3.5, Chloride 97 L, Carbon Dioxide 33.0 H, Anion Gap 5, BUN 26 H, Creatinine 0.96, Estim Creat Clear Calc 33.89, Est GFR (MDRD) Af Amer 71, Est GFR (MDRD) Non-Af 58 L, BUN/Creatinine Ratio 27.0 H, Glucose 142 H, Calcium 9.1 02/24/23 06:25: POC Glucose 127 H Radiography Diagnostic Testing: Radiology Impression Echocardiogram 02/23/23 07:35 Interpretation Summary The estimated ejection fraction is 70 %. Unable to assess diastolic dysfunction. The left atrium is severely enlarged. The right atrium is severely enlarged. Moderate (2+) mitral valve insufficiency. Mild-Moderate (1-2+) aortic valve insufficiency. Ordering Physician: Vishal Marie Referring Physician: Marcello Avelar Performed By: Sadia Angel, [place], RVT Rhythm Strip Rhythm Strip: A-fib Rate: 75 Ectopy: None Physical Exam Const alert and no apparent distress Resp normal respiratory effort, no retractions, no use of accessory muscles and clear to auscultation bilaterally Cardio regular rate and regular rhythm Cardio Narrative: bibasilar crackles. 2/6 BHAVYA at RUSB. GI normal to inspection, nondistended, normoactive bowel sounds, soft to palpation, non-tender and non-distended Extremity Extremity Narrative: trace LE edema. Neuro Sensorium / Orientation: awake and alert Psych affect normal Assessment & Plan Assessment/Plan (1) Acute exacerbation of CHF (congestive heart failure): QUALIFIERS: Heart failure type: diastolic Qualified Code(s): I50.33 - Acute on chronic diastolic (congestive) heart failure PLAN: Acute HFpEF Last echocardiogram on file was on 06/30/2019:Normal EF. Moderate 2+ tricuspid valve insufficiency. Mild diffuse aortic valve thickening. Mild diffuse aortic valve calcification. Mild aortic stenosis. Trivial aortic valve insufficiency. Mild pulmonic valve insufficiency. Right ventricular systolic pressure was 82 mmHg. Continue IV furosemide 40 BID CXR shows bilateral edema. Continue Metolazone Check echo Fluid restriction PLAN: Plan Chronic stable conditions: * Chronic persistent A-fib: Stable. Metoprolol continued. Apixaban continued * DM2: continue glipizide and metformin. SSI. VINCENT: ruled out. DVT prophylaxis: not indicated as pt on apixaban. Disposition: TBD. Hopefully just another day of IV diuresis prior to discharge. Plan is for the patient to go home with family. Charges/Coding Visit Charges Inpatient E&M: 87610 Subs Hosp L2
[2023-02-24] MEDS: Potassium Chloride Oral Tablet 20 MEQ PO (09:07)
[2023-02-24] MEDS: APIXABAN 2.5 MG TABLET (WCH) PO ×2 (09:07→21:05)
[2023-02-24] MEDS: Magnesium Chloride 64 MG Delay Rel.Tablet 128 MG PO ×2 (09:08→21:05)
[2023-02-24] MEDS: Ferrous Sulfate 325 MG Tablet PO (09:08)
[2023-02-24] MEDS: Metolazone 2.5 MG Tablet PO (09:08)
[2023-02-24] MEDS: glipiZIDE 2.5 MG TAB.ER.24 PO (09:08)
[2023-02-24] MEDS: Cyanocobalamin 500 MCG Tablet 1000 MCG PO (09:08)
[2023-02-24] MEDS: Calcium Carb/Vitamin D 1 TABLET Tablet PO (09:09)
[2023-02-24] MEDS: Aspirin 81 MG TAB.CHEW PO (09:09)
[2023-02-24] MEDS: Omega-3 Acid Ethyl Esters 1 GM Capsule PO ×2 (09:09→21:05)
[2023-02-24] MEDS: Pantoprazole Sodium 20 MG Tablet PO (09:09)
[2023-02-24] MEDS: Furosemide 40 MG/4 ML Vial IV ×2 (09:10→16:49)
[2023-02-24] MEDS: 0.9% Saline Lock 10 ML Syringe IV ×2 (09:10→16:49)
[2023-02-24 12:53] LABS: Bedside Glucose 148 mg/dL (74-106)
[2023-02-24 17:04] LABS: Bedside Glucose 98 mg/dL (74-106)
[2023-02-24] MEDS: Metoprolol Tartrate 50 MG Tablet PO (21:05)
[2023-02-24] MEDS: Insulin Lispro 100 UNIT/ML INSULN.PEN SC (21:05)
[2023-02-24] MEDS: Atorvastatin Calcium 20 MG Tablet PO (21:05)
[2023-02-24 22:08] LABS: Bedside Glucose 164 mg/dL (74-106)
[2023-02-25] VITALS (7 sets, daily range): BP systolic 109–119; BP diastolic 59–68; PULSE 67–84; RESP 14–18; TEMP 36.5–36.8; O2SAT 92–98; BMI 26.7
[2023-02-25 04:56] LABS: Anion Gap 7 (5-15); BUN 29 mg/dL (7-18); Calcium,Total 8.8 mg/dL (8.5-10.1); Chloride 94 mmol/L (98-107); EST Glomerular Filtration Rate 56 mL/min (>60); Est Glom Filt Rate - Afr Amer 68 mL/min (>60); Estimated Creatinine Clearance 32.53 ml/min; Glucose 135 mg/dL (74-106); Sodium Level 135 mmol/L (136-145)
[2023-02-25] MEDS: Potassium Chloride Oral Tablet 20 MEQ 40 MEQ PO (06:16)
[2023-02-25 06:48] LABS: Bedside Glucose 113 mg/dL (74-106)
[2023-02-25] MEDS: Potassium Chloride Oral Tablet 20 MEQ PO (08:40)
[2023-02-25] MEDS: Magnesium Chloride 64 MG Delay Rel.Tablet 128 MG PO (08:40)
[2023-02-25] MEDS: Metolazone 2.5 MG Tablet PO (08:40)
[2023-02-25] MEDS: Metoprolol Tartrate 50 MG Tablet PO (08:40)
[2023-02-25] MEDS: Pantoprazole Sodium 20 MG Tablet PO (08:40)
[2023-02-25] MEDS: Cyanocobalamin 500 MCG Tablet 1000 MCG PO (08:42)
[2023-02-25] MEDS: Calcium Carb/Vitamin D 1 TABLET Tablet PO (08:42)
[2023-02-25] MEDS: Omega-3 Acid Ethyl Esters 1 GM Capsule PO (08:42)
[2023-02-25] MEDS: APIXABAN 2.5 MG TABLET (WCH) PO (08:43)
[2023-02-25] MEDS: Ferrous Sulfate 325 MG Tablet PO (08:43)
[2023-02-25] MEDS: glipiZIDE 2.5 MG TAB.ER.24 PO (08:43)
[2023-02-25] MEDS: Aspirin 81 MG TAB.CHEW PO (08:43)
[2023-02-25] MEDS: Furosemide 40 MG/4 ML Vial IV (11:07)
[2023-02-25] MEDS: 0.9% Saline Lock 10 ML Syringe IV (11:07)
[2023-02-25] MEDS: Insulin Lispro 100 UNIT/ML INSULN.PEN SC (11:12)
[2023-02-25 11:30] LABS: Bedside Glucose 242 mg/dL (74-106)
--- NOTE | 2023-02-25 14:06 | DCINST_ITS ---
Discharge Instructions Diet Discharge Diet: 2000 mg Sodium Diet Activity Discharge Activity: Return to Normal Activity Weight Bearing Status: Full weight bearing Follow Up Care Please Follow Up With: Robert Avelar MD When: 1 to 2 weeks Test Results: Test results from this visit will be discussed in further detail at your follow- up appointment, if applicable. Pending Tests Upon Discharge: None Discharge Plan Admission Admit Date/Time: 02/23/23 06:18 Primary Reason for Your Visit: Heart failure exacerbation Attending Provider: Almas Thorpe Primary Care Provider: Robert Avelar Consulting Providers: Vishal Marie; Ryan Hartman Instructions Additional Instructions / Restrictions: Please start taking Lasix 40 mg daily again on discharge. Continue taking metolazone 2.5 mg daily as before. Follow-up with your primary care provider in the next 1 to 2 weeks. Discharge Orders/Prescriptions Prescriptions: Continued metformin 500 MG tablet 1,000 mg PO BIDCM glipizide 5 MG tablet 2.5 mg PO DAILY@0800 atorvastatin 20 MG tablet 20 mg PO QHS calcium carbonate-vitamin D3 1 EACH tablet 1 ea PO DAILY omega-3 fatty acids-fish oil 1 EACH capsule 1 ea PO DAILY potassium chloride 20 MEQ tablet extended release 20 meq PO DAILY Qty: 30 0RF cyanocobalamin (vitamin B-12) 1,000 mcg tablet 100 mcg PO DAILY metolazone 2.5 mg tablet 2.5 mg PO DAILY Eliquis 2.5 mg tablet 2.5 mg PO BID metoprolol tartrate 25 MG tablet 50 mg PO BID omeprazole 20 mg capsule,delayed release(DR/EC) 20 mg PO DAILY ferrous sulfate [FeroSul] 325 mg (65 mg iron) tablet 325 mg PO DAILY Patient Comments: TAKE ONE TABLET BY MOUTH TWICE DAILY WITH MEALS Slow-Mag 71.5 mg tablet,delayed release (DR/EC) 143 mg PO BID aspirin 81 mg capsule 81 mg PO DAILY Changed furosemide 40 MG tablet 40 mg PO DAILY 30 Days Qty: 30 0RF Referrals / Follow Up: Robert Avelar MD [Primary Care Provider] - Disposition Disposition (needs filled in before D/C Order can be placed): Home, Self Care
--- NOTE | 2023-02-25 14:14 | PCM.DC.SUM ---
Providers Date of Admission: 02/23/23 Date of Discharge: 02/25/23 Primary Care Physician: Dr. Robert Avelar MD Reason For Visit: ACUTE ON CHRONIC HEART FAILURE WITH PRESERVED Diagnosis Discharge Diagnosis (1) Acute exacerbation of CHF (congestive heart failure): Status: Chronic Code(s): I50.9 - Heart failure, unspecified Qualifiers: Heart failure type: diastolic Qualified Code(s): I50.33 - Acute on chronic diastolic (congestive) heart failure Medications at Discharge Home Medications glipizide 5 mg tablet, extended release 24 hr 2.5 mg PO DAILY@0800 diabetes 10/26/16 metformin 500 mg tablet 1,000 mg PO BIDCM DAIBETES 10/26/16 atorvastatin 20 mg tablet 20 mg PO QHS cholesterol 06/30/19 calcium carbonate-vitamin D3 600 mg-125 unit tablet 1 ea PO DAILY supplement 06/30/19 omega-3 fatty acids-fish oil 340 mg-1,000 mg capsule 1 ea PO DAILY supplement 06/30/19 potassium chloride 20 mEq tablet,extended release 20 meq PO DAILY supplement ##30 07/02/19 apixaban 2.5 mg tablet (Eliquis) 2.5 mg PO BID anticoagulant 02/23/23 aspirin 81 mg capsule 81 mg PO DAILY health maintenance 02/23/23 cyanocobalamin (vitamin B-12) 1,000 mcg tablet 100 mcg PO DAILY health maintenance 02/23/23 ferrous sulfate 325 mg (65 mg iron) tablet (FeroSul) 325 mg PO DAILY supplement 02/23/23 magnesium chloride 71.5 mg (magnesium chloride) tablet,delayed release (Slow-Mag) 143 mg PO BID supplement 02/23/23 metolazone 2.5 mg tablet 2.5 mg PO DAILY diuretic 02/23/23 metoprolol tartrate 25 mg tablet 50 mg PO BID heart rate, blood pressure 02/23/23 omeprazole 20 mg capsule,delayed release 20 mg PO DAILY stomach 02/23/23 furosemide 40 mg tablet 40 mg PO DAILY diuretic 30 days #30 tabs 02/25/23 Hospital Course Operations None Procedures EKG, Transthoracic echo and - (Chest x-ray) Summary of Care Provided Minutes Spent on Discharge: 38 Hospital Course: Patient is an 87-year-old female with history of HFpEF, severe pulmonary hypertension, aortic valve replacement, A-fib and type 2 diabetes who presented to [facility] on 02/23/2023 with worsening shortness of breath on exertion. Was found to have signs of volume overload on exam. Chest x-ray on admit showed bilateral pulmonary edema. Had +2-3 pitting edema of lower extremities. Was started on IV Lasix 40 mg twice daily with significant improvement in her volume status. TTE showed an EF of 70%, normal LV size, severely enlarged left atrium, severely enlarged right atrium, RVSP of 90 mmHg. Patient notably stated that her home Lasix was decreased from 40 mg daily to 20 mg daily about 2 weeks prior to this admission, as she noted to her PCP that she seemed to be dry on exam. Reported good adherence to low-sodium diet. No other overt risk factors for heart failure exacerbation. Have high concern that patient has narrow therapeutic index with volume status given her severe pulmonary hypertension. Patient did require supplemental oxygen up to 3 L nasal cannula during admission. She was weaned to room air by discharge, did not require submental oxygen on discharge. Patient was discharged home in stable condition on Lasix 40 mg daily, as well as previous home metolazone dose of 2.5 mg daily. Recommended the patient have close outpatient follow-up with PCP. Discharge diagnoses: ? Acute exacerbation of HFpEF ? Severe pulmonary hypertension ? Chronic persistent A-fib ? Type 2 diabetes PCP follow-up: Recommend follow-up appointment in next 1 to 2 weeks to assess patient's volume status. Total clinical time spent by myself addressing the patient's discharge needs: 38 minutes. Physical Exam Const alert, oriented x3, no apparent distress, average body habitus, healthy appearing and well nourished Constitutional Narrative: Pleasant elderly female, sitting comfortably at edge of bed, conversing normally, no acute distress. General Appearance: cooperative and comfortable HEENT normocephalic, head/scalp atraumatic, hearing grossly normal bilaterally, nasal mucous membranes and turbinates normal and moist oral mucous membranes Eyes PERRL, EOMs intact bilaterally and conjunctivae normal Neck full ROM, no lymphadenopathy and supple Lymph Lymphatic: no lymphadenopathy noted Chest inspection of chest normal Resp normal respiratory effort, normal air movement, no use of accessory muscles and clear to auscultation bilaterally Resp Narrative: Satting well on room air, no increased work of breathing noted. Cardio regular rate, no murmurs and peripheral pulses 2+ throughout Cardio Narrative: A-fib noted, rate controlled. GI normal to inspection, nondistended, normoactive bowel sounds, soft to palpation, non-tender and non-distended Back/Spine normal ROM Extremity normal to inspection, full ROM and no pedal edema Skin no rashes or lesions noted Psych mental status grossly normal Weight / BMI Weight Weight: 66.4 kg Body Mass Index (BMI) 26.7 ABG / Lab / Microbiology Data 02/24/23 05:45 02/25/23 04:15 Laboratory: Laboratory Results - last 24 hr 02/24/23 16:45: POC Glucose 98 02/24/23 21:01: POC Glucose 164 H 02/25/23 04:15: Sodium 135 L, Potassium 3.0 L, Chloride 94 L, Carbon Dioxide 34.0 H, Anion Gap 7, BUN 29 H, Creatinine 1.00, Estim Creat Clear Calc 32.53, Est GFR (MDRD) Af Amer 68, Est GFR (MDRD) Non-Af 56 L, BUN/Creatinine Ratio 29.0 H, Glucose 135 H, Calcium 8.8 02/25/23 06:19: POC Glucose 113 H 02/25/23 11:10: POC Glucose 242 H D/C Instructions Discharge Diet: 2000 mg Sodium Diet Weight Bearing Status: Full weight bearing Pending Tests Upon Discharge: None Please Follow Up With: Robert Avelar MD When: 1 to 2 weeks Meaningful Use Info Meaningful Use Diagnoses (Choose all that apply): CHF CHF SADIA/ARB ordered at discharge?: No Reason SADIA/ARB not ordered?: Not indicated Documented LVEF (%): 70 Discharge Plan Admission Admit Date/Time: 02/23/23 06:18 Primary Reason for Your Visit: Heart failure exacerbation Attending Provider: Almas Thorpe Primary Care Provider: Robert Avelar Consulting Providers: Vishal Marie; Ryan Hartman Instructions Additional Instructions / Restrictions: Please start taking Lasix 40 mg daily again on discharge. Continue taking metolazone 2.5 mg daily as before. Follow-up with your primary care provider in the next 1 to 2 weeks. Discharge Orders/Prescriptions Prescriptions: Continued metformin 500 MG tablet 1,000 mg PO BIDCM glipizide 5 MG tablet 2.5 mg PO DAILY@0800 atorvastatin 20 MG tablet 20 mg PO QHS calcium carbonate-vitamin D3 1 EACH tablet 1 ea PO DAILY omega-3 fatty acids-fish oil 1 EACH capsule 1 ea PO DAILY potassium chloride 20 MEQ tablet extended release 20 meq PO DAILY Qty: 30 0RF cyanocobalamin (vitamin B-12) 1,000 mcg tablet 100 mcg PO DAILY metolazone 2.5 mg tablet 2.5 mg PO DAILY Eliquis 2.5 mg tablet 2.5 mg PO BID metoprolol tartrate 25 MG tablet 50 mg PO BID omeprazole 20 mg capsule,delayed release(DR/EC) 20 mg PO DAILY ferrous sulfate [FeroSul] 325 mg (65 mg iron) tablet 325 mg PO DAILY Patient Comments: TAKE ONE TABLET BY MOUTH TWICE DAILY WITH MEALS Slow-Mag 71.5 mg tablet,delayed release (DR/EC) 143 mg PO BID aspirin 81 mg capsule 81 mg PO DAILY Changed furosemide 40 MG tablet 40 mg PO DAILY 30 Days Qty: 30 0RF Referrals / Follow Up: Robert Avelar MD [Primary Care Provider] - Disposition Disposition (needs filled in before D/C Order can be placed): Home, Self Care Charges/Coding Visit Charges Inpatient E&M: 99545 Disch Hosp >30min
[2023-02-26 15:34] LABS: BNP,B-Type NATRIURETIC PEPTIDE 408.4 pg/mL (0-100)
== END 2023-02-25 16:25 | disposition home or self-care (01) | DRG 292 ==
LOC: ED 05:28 → PCU 06:45
PROVIDERS: Admitting Provider Hospitalist; Emergency Provider Emergency Medicine; PCP Family Medicine; Visit Provider Hospitalist
DX: I50.33 Acute on chronic diastolic (congestive) heart failure (principal); I48.19 Other persistent atrial fibrillation; I08.2 Rheumatic disorders of both aortic and tricuspid valves; I27.20 Pulmonary hypertension, unspecified; Z79.01 Long term (current) use of anticoagulants; I70.0 Atherosclerosis of aorta; E11.9 Type 2 diabetes mellitus without complications; Z79.84 Long term (current) use of oral hypoglycemic drugs; R09.02 Hypoxemia
CPT/HCPCS: 36415; 71046; 80048; 82962; 83880; 84484; 85025; 93005; 93306; 94640; 99285; A4216; J1940

== ENCOUNTER 2023-05-03 14:49 | Inpatient (IN) | payer OTHER, SELFPAY ==
[2023-05-03] VITALS (13 sets, daily range): BP systolic 109–128; BP diastolic 41–70; PULSE 35–56; RESP 15–23; TEMP 36.1–36.9; O2SAT 86–97; BMI 28.2; BMI 27.1
--- NOTE | 2023-05-03 15:29 | EKG12_ITS ---
Test Reason : LOW HR Blood Pressure : / mmHG Vent. Rate : 042 BPM Atrial Rate : 000 BPM P-R Int : 000 ms QRS Dur : 130 ms QT Int : 584 ms P-R-T Axes : 000 081 011 degrees QTc Int : 487 ms ATRIAL FIBRILLATION Premature ventricular complexes with ventricular escape complexes Right bundle branch block Abnormal ECG Confirmed by TARSHA JAIN, SUZANNA ([id number]), commissioning editor SATISH HORTON ([id number]) on 05/06/2023 8:29:02 AM Referred By: EZEQUIEL/OZZIE Confirmed By:EARL WILLINGHAM MD
--- NOTE | 2023-05-03 15:30 | ED.VIS.DYS ---
HPI History of Present Illness Chief Complaint: Shortness of Breath Informant: patient and family Narrative Narrative: Patient is a 89-year-old female with history of heart failure with reduced ejection fraction, atrial fibrillation (on Eliquis), diabetes mellitus and prior aortic valve replacement status post TAVR presenting with shortness of breath. Patient states she woke up around 2 AM short of breath. She states she could not catch her breath. She had a proper set up on some pillows. She is continue to feel short of breath throughout the day. She notes she had a mild cough. This has been nonproductive. Denies any fever or URI symptoms. She also been having a queasy stomach has not been feeling well for the past week or so. She notes that since 2 AM she is also had a pain between her shoulder blades. At the bedside notes that she been looking a little pale as well. Patient denies any black or blood in her stool. Family states that the last time she had symptoms like that she had to be admitted for fluid on her lungs. No increased swelling of her legs. Does not wear oxygen at baseline. [facility] Medical History Atrial fibrillation Atrial fibrillation Congestive heart failure Diabetes Hard of hearing Home Medications metformin 500 mg tablet 1,000 mg PO BIDCM DAIBETES 10/26/16 [History Last Taken 02/22/23] atorvastatin 20 mg tablet 20 mg PO QHS cholesterol 06/30/19 [History Last Taken 02/22/23] calcium carbonate-vitamin D3 600 mg-125 unit tablet 1 ea PO DAILY supplement 06/30/19 [History Last Taken 02/22/23] omega-3 fatty acids-fish oil 340 mg-1,000 mg capsule 1 ea PO DAILY supplement 06/30/19 [History Last Taken 02/22/23] apixaban 2.5 mg tablet (Eliquis) 2.5 mg PO BID anticoagulant 02/23/23 [History Last Taken 02/22/23] aspirin 81 mg capsule 81 mg PO DAILY health maintenance 02/23/23 [History Last Taken 02/22/23] cyanocobalamin (vitamin B-12) 1,000 mcg tablet 100 mcg PO DAILY health maintenance 02/23/23 [History Last Taken 02/22/23] ferrous sulfate 325 mg (65 mg iron) tablet (FeroSul) 325 mg PO DAILY supplement 02/23/23 [History Last Taken 02/22/23] metolazone 2.5 mg tablet 2.5 mg PO DAILY diuretic 02/23/23 [History Last Taken 02/22/23] metoprolol tartrate 25 mg tablet 50 mg PO BID heart rate, blood pressure 02/23/23 [History Last Taken 02/22/23] furosemide 40 mg tablet 40 mg PO DAILY diuretic 30 days #30 tabs 02/25/23 [Rx Last Taken 02/22/23] Allergy/AdvReac Type Severity Reaction Status Date / Time guaifenesin [From Robitussin] Allergy Intermediate Chest Verified 05/03/23 14:51 tightness Family History Other Cancer Surgical History Aortic valve replaced Social History Smoking Status: Never smoker ROS ROS ED Constitutional Constitutional ED: Denies chills or fever(s) Eyes Eyes: Denies change in vision ENT ENT ED: Denies rhinorrhea or sore throat Cardiovascular Cardiovascular: Reports chest pain, orthopnea and paroxysmal nocturnal dyspnea; Denies palpitations or racing heartbeat Respiratory/Chest Respiratory/Chest: Reports cough, dyspnea, orthopnea and paroxysmal nocturnal dyspnea Gastrointestinal Gastrointestinal: Reports nausea; Denies abdominal pain, diarrhea, melena or vomiting Musculoskeletal Musculoskeletal: Denies arthralgias or myalgias Integumentary Denies rash Neurologic Neurologic: Reports weakness; Denies headache(s) Hematologic/Lymphatic Hematologic/Lymphatic: Reports easy bleeding and easy bruising EXAM Physical Exam Const Vital Signs: 05/03/23 14:52 05/03/23 15:32 05/03/23 15:37 Temperature 97.0 F L Temperature Source Temporal Pulse Rate 56 L 35 L Respiratory Rate 20 H Respiratory Effort Respiratory Depth Blood Pressure 109/70 114/41 L Blood Pressure Mean 83 65 Pulse Ox 94 92 Oxygen Delivery Method Room Air Room Air 05/03/23 16:10 05/03/23 16:54 05/03/23 17:11 Temperature Temperature Source Pulse Rate 42 L Respiratory Rate Respiratory Effort Short of Breath Respiratory Depth Normal Blood Pressure 128/41 H Blood Pressure Mean 70 Pulse Ox 86 92 Oxygen Delivery Method Room Air Room Air Room Air Positive well nourished and well developed General Appearance ED: well developed, NAD and pallor HEENT Reports moist mucous membranes Eyes PERRL and EOMs intact bilaterally Neck supple and no JVD Resp normal respiratory effort Resp Narrative: NO crackles appreciated Auscultation: diminished lung sounds bilateral lower Cardio no murmurs Rate: bradycardia Rhythm: abnormal rhythm GI non-tender and non-distended Auscultation: normoactive bowel sounds Extremity normal to inspection General Extremety ED: Negative for edema or tenderness General Extremity: Negative for edema Neuro oriented x3 Sensorium / Orientation: alert Motor Exam: general weakness Psych mental status grossly normal Skin no wounds General Skin Exam: pallor MDM MDM MDM Narrative Medical decision making narrative: Patient evaluated for increased shortness of breath, generalized weakness and some lightheadedness. Vital signs remarkable for bradycardia. She intermittently desats down to 86 to 88% while resting. Suspect that she is having a CHF exacerbation. Also having some mild chest discomfort throughout the day today so differential also includes symptomatic bradycardia, myxedema coma, ACS as well as infection. Low suspicion for pulmonary emboli as she is anticoagulated on Eliquis. BNP is up trending. Chest x-ray shows cardiomegaly and chronic changes. I question if there is a small component of pulmonary vascular congestion on my interpretation. She has mild anemia which is baseline. She has mild CKD with a creatinine 1.1 which is also baseline. TSH is normal. High-sensitivity opponent is normal at 25 and EKG shows junctional rhythm versus atrial fibrillation with slow ventricular response. Patient is ambulated and is quite lightheaded and continue to be bradycardic. Will be admitted for CHF exacerbation and is given IV Lasix in the ER. He is is discussed with cardiology on-call, Dr. Anderson, for her bradycardia to make sure that she does not need cath/pacemaker placed. Discussion with cardiology, given how much her rate fluctuates and she does not have significant change in her EKG we do not think that she requires a pacemaker at this time. We will hold metoprolol and see how her heart rate responds. Patient is admitted to PCU. History & Record Review Discussion w/independent historian: Patient and Family Lab Data Attestation: I reviewed the patient's lab results. Labs: Laboratory Results - last 24 hr 05/03/23 15:15 WBC 7.9 RBC 3.63 L Hgb 10.3 L Hct 31.7 L MCV 87.3 MCH 28.4 MCHC 32.5 RDW Std Deviation 42.8 RDW Coeff of Jim 13.9 Plt Count 193 MPV 10.6 Immature Gran % (Auto) 0.400 Neut % (Auto) 71.7 H Lymph % (Auto) 17.8 L [place] % (Auto) 8.6 Eos % (Auto) 1.0 Baso % (Auto) 0.5 Absolute Neuts (auto) 5.7 Absolute Lymphs (auto) 1.41 Nucleated RBC % 0 Sodium 133 L Potassium 3.4 L Chloride 97 L Carbon Dioxide 31.0 Anion Gap 5 BUN 36 H Creatinine 1.10 H Estim Creat Clear Calc 29.57 Est GFR (MDRD) Af Amer 61 Est GFR (MDRD) Non-Af 50 L BUN/Creatinine Ratio 32.7 H Glucose 156 H Calcium 10.0 Magnesium 1.3 L Troponin I High Sens 25 B-Natriuretic Peptide 634.7 H TSH 1.33 Radiography Chest X-Ray - ED: 1 View, Read by ED Physician, Read by Radiologist, Cardiomegaly and CHF Diagnostic Testing: Clinical Impression(s) from Imaging Studies Chest X-Ray 05/03/23 15:32 IMPRESSION: Cardiomegaly without radiographic evidence of acute cardiopulmonary disease. Electronically Signed: Colton Lazo MD at 16:54 EST Reading Location ID and State: [facility] / [place] Tel , Service support , Rhythm Strip Rhythm Strip: A-fib Rate: 42 Ectopy: PVC(s) EKG Initial EKG: Attestation: I personally reviewed and interpreted this EKG as follows: Interpretation: Atrial Fibrillation Comments: Atrial fibrillation with slow ventricular response at a rate of 42 beats per minutes Normal axis Right bundle branch block Widened QRS with PVCs T wave inversion in 3, V1 through V3 Compared to prior EKG patient now has increased bradycardia with new T wave inversions in V1 through V3 as well as lead III now has PVCs Management Discussion w/another healthcare provider: Hospitalist and [employer] Paste Mixer Discharge Plan Triage Chief Complaint: Shortness of Breath ED Provider: Kaley Pierson Dx/Rx/DC Orders Clinical Impression: Acute exacerbation of CHF (congestive heart failure), Bradycardia Prescriptions: No Action metformin 500 MG tablet 1,000 mg PO BIDCM atorvastatin 20 MG tablet 20 mg PO QHS calcium carbonate-vitamin D3 1 EACH tablet 1 ea PO DAILY omega-3 fatty acids-fish oil 1 EACH capsule 1 ea PO DAILY cyanocobalamin (vitamin B-12) 1,000 mcg tablet 100 mcg PO DAILY metolazone 2.5 mg tablet 2.5 mg PO DAILY Eliquis 2.5 mg tablet 2.5 mg PO BID metoprolol tartrate 25 MG tablet 50 mg PO BID ferrous sulfate [FeroSul] 325 mg (65 mg iron) tablet 325 mg PO DAILY Patient Comments: TAKE ONE TABLET BY MOUTH TWICE DAILY WITH MEALS aspirin 81 mg capsule 81 mg PO DAILY furosemide 40 MG tablet 40 mg PO DAILY 30 Days Qty: 30 0RF Patient Comments: alternate 1.5 tablets saturday, saturday and saturday and 2 tablets the other days Primary Care Provider: Robert Avelar Referrals: Robert Avelar MD [Primary Care Provider] - Disposition Disposition: Acute Care Hospital [facility]
--- NOTE | 2023-05-03 15:32 | RAD_ITS ---
INDICATION: chest pain EXAMINATION/TECHNIQUE: X-RAY - portable upright AP chest x-ray COMPARISON: 02/23/2023 FINDINGS: LINES/DEVICES: None. LUNGS: No consolidation, edema or effusion. No pneumothorax. MEDIASTINUM AND CARDIOVASCULAR STRUCTURES: Stable cardiomegaly with stable aortic valve stent graft. BONES AND SOFT TISSUES: No acute changes. RAD/Chest 1 View (Portable) IMPRESSION: Cardiomegaly without radiographic evidence of acute cardiopulmonary disease. Electronically Signed: Colton Lazo MD at 16:54 EST ,
[2023-05-03 15:53] LABS: Absolute Lymphocyte Count 1.41 X10^3/uL (0.83-4.51); Absolute Neutrophil Count 5.7 X10^3/uL (2.0-7.7); Basophil# 0.04 X10^3/uL; Basophil% 0.5 % (0-1); Eosinophil# 0.08 X10^3/uL; Hematocrit 31.7 % (37-47); Hemoglobin 10.3 g/dL (12.0-15.0); Lymphocyte # 1.41 X10^3/ul (0.83-4.51); Lymphocyte % 17.8 % (19-41); Mean Corp Hgb Conc 32.5 g/dL (32-36); Mean Corpuscular Hgb 28.4 pg (27.0-32.0); Mean Corpuscular Volume 87.3 fL (81-99); Mean Platelet Vol. 10.6 fl (6.2-12.0); Monocyte# 0.68 X10^3/uL; Monocyte% 8.6 % (0-10); NRBC Flagged by Analyzer 0 % (0-5); Neutrophil # 5.69 X10^3/uL (2.7-7.7); Neutrophil % 71.7 % (47-70); Platelet Count 193 K/mm3 (150-450); RBC Distribution Width CV 13.9 % (11.6-14.6); RBC Distribution Width SD 42.8 fl (35.1-43.9); Red Blood Count 3.63 M/mm3 (4.2-5.4); White Blood Count 7.9 K/mm3 (4.4-11.0)
[2023-05-03 16:05] LABS: Anion Gap 5 (5-15); BUN 36 mg/dL (7-18); BUN/Creat Ratio 32.7 RATIO (10-20); Chloride 97 mmol/L (98-107); EST Glomerular Filtration Rate 50 mL/min (>60); Est Glom Filt Rate - Afr Amer 61 mL/min (>60); Estimated Creatinine Clearance 29.57 ml/min; Glucose 156 mg/dL (74-106); Magnesium 1.3 mg/dL (1.6-2.6); Potassium 3.4 mmol/L (3.5-5.1); Sodium Level 133 mmol/L (136-145); Thyroid Stim Hormone (TSH) 1.33 uIU/mL (0.358-3.74); Troponin-I HS 25 pg/mL (3.0-54.0)
[2023-05-03 16:17] LABS: BNP,B-Type NATRIURETIC PEPTIDE 634.7 pg/mL (0-100)
--- NOTE | 2023-05-03 17:51 | PCM.HP.STD ---
HPI - General General Date of Admission: 05/03/23 HPI Narrative FADI CHILDERS, is a 87 F who presents to the hospital with increasing shortness of breath over the last several days. She has noticed more significant shortness of breath with ambulation and at rest. She does have a history of diastolic CHF with A-fib and severe pulmonary hypertension. She has not noticed a significant increase in her weight over the last couple of days but last night she was unable to lay flat because of significant shortness of breath and this continued into this morning. BNP is a little elevated in the 600s and she denies any fevers or chills, COVID and flu antigens were negative. She was given a dose of Lasix in the ER but it was too soon to tell if this was helping [facility] Medical History Atrial fibrillation Atrial fibrillation Congestive heart failure Diabetes Hard of hearing Home Medications metformin 500 mg tablet 1,000 mg PO BIDCM DAIBETES 10/26/16 [History Last Taken 02/22/23] atorvastatin 20 mg tablet 20 mg PO QHS cholesterol 06/30/19 [History Last Taken 02/22/23] calcium carbonate-vitamin D3 600 mg-125 unit tablet 1 ea PO DAILY supplement 06/30/19 [History Last Taken 02/22/23] omega-3 fatty acids-fish oil 340 mg-1,000 mg capsule 1 ea PO DAILY supplement 06/30/19 [History Last Taken 02/22/23] apixaban 2.5 mg tablet (Eliquis) 2.5 mg PO BID anticoagulant 02/23/23 [History Last Taken 02/22/23] aspirin 81 mg capsule 81 mg PO DAILY health maintenance 02/23/23 [History Last Taken 02/22/23] cyanocobalamin (vitamin B-12) 1,000 mcg tablet 100 mcg PO DAILY health maintenance 02/23/23 [History Last Taken 02/22/23] ferrous sulfate 325 mg (65 mg iron) tablet (FeroSul) 325 mg PO DAILY supplement 02/23/23 [History Last Taken 02/22/23] metolazone 2.5 mg tablet 2.5 mg PO DAILY diuretic 02/23/23 [History Last Taken 02/22/23] metoprolol tartrate 25 mg tablet 50 mg PO BID heart rate, blood pressure 02/23/23 [History Last Taken 02/22/23] furosemide 40 mg tablet 40 mg PO DAILY diuretic 30 days #30 tabs 02/25/23 [Rx Last Taken 02/22/23] Allergy/AdvReac Type Severity Reaction Status Date / Time guaifenesin [From Padminisin] Allergy Intermediate Chest Verified 05/03/23 14:51 tightness Family History Other Cancer Surgical History Aortic valve replaced Social History Smoking Status: Never smoker ROS Constitutional Constitutional: Denies chills, fatigue, fever(s) or malaise Eyes Eyes: Denies blurry vision ENT HEENT: Denies headache(s) or nasal discharge Cardiovascular Cardiovascular: Reports dyspnea on exertion and orthopnea; Denies chest pain or syncope Respiratory/Chest Respiratory/Chest: Denies cough, shortness of breath at rest or shortness of breath with exertion Gastrointestinal Gastrointestinal: Denies constipation, diarrhea, nausea or vomiting Genitourinary Genitourinary: Denies dysuria Neurologic Neurologic: Denies focal weakness, numbness or tremor(s) Psychiatric Psychiatric: Denies anxiety or depression Vital Signs Vital Signs Vital Signs: 05/03/23 14:52 05/03/23 15:32 05/03/23 15:37 Temperature 97.0 F L Temperature Source Temporal Pulse Rate 56 L 35 L Respiratory Rate 20 H Respiratory Effort Respiratory Depth Blood Pressure 109/70 114/41 L Blood Pressure Mean 83 65 Pulse Ox 94 92 Oxygen Delivery Method Room Air Room Air 05/03/23 16:10 05/03/23 16:54 05/03/23 17:11 Temperature Temperature Source Pulse Rate 42 L Respiratory Rate Respiratory Effort Short of Breath Respiratory Depth Normal Blood Pressure 128/41 H Blood Pressure Mean 70 Pulse Ox 86 92 Oxygen Delivery Method Room Air Room Air Room Air Weight Weight: 154 lb 5.177 oz Body Mass Index (BMI) 28.2 Physical Exam Narrative General: Alert, Oriented x3, Cooperative, No apparent distress HEENT: Atraumatic, PERRLA, EOMI, Normocephalic Oral: Moist Mucosa Neck: Supple, No JVD Lungs: Diminished, Normal air movement, No rhonchi, No wheeze, rales Cardiovascular: Bradycardic, Regular Rhythm, Normal S1, Normal S2, No murmurs Abdomen: Soft, Non Tender, Non-Distended, No Hepato-splenomegaly Extremities: Edema, Capillary Refill Less than 3 Seconds Skin: No rashes, No breakdown Musculoskeletal: No Tenderness to Palpation of Joints or Extremities Neurological: Cranial nerves II-XII grossly intact, Motor Exam 5/5 strength throughout, Sensory exam intact to light touch and pain Psych/Mental Status: Normal Affect, Appropriate Results Lab / Micro Data 05/03/23 15:15 05/03/23 15:15 Labs: Laboratory Results - last 24 hr 05/03/23 15:15: WBC 7.9, RBC 3.63 L, Hgb 10.3 L, Hct 31.7 L, MCV 87.3, MCH 28.4, MCHC 32.5, RDW Std Deviation 42.8, RDW Coeff of Jim 13.9, Plt Count 193, MPV 10.6, Immature Gran % (Auto) 0.400, Neut % (Auto) 71.7 H, Lymph % (Auto) 17.8 L, [place] % (Auto) 8.6, Eos % (Auto) 1.0, Baso % (Auto) 0.5, Absolute Neuts (auto) 5.7, Absolute Lymphs (auto) 1.41, Nucleated RBC % 0, Sodium 133 L, Potassium 3.4 L, Chloride 97 L, Carbon Dioxide 31.0, Anion Gap 5, BUN 36 H, Creatinine 1.10 H, Estim Creat Clear Calc 29.57, Est GFR (MDRD) Af Amer 61, Est GFR (MDRD) Non-Af 50 L, BUN/Creatinine Ratio 32.7 H, Glucose 156 H, Calcium 10.0, Magnesium 1.3 L, Troponin I High Sens 25, B-Natriuretic Peptide 634.7 H, TSH 1.33 Micro: Microbiology 05/03/23 15:35 Interface Orders SARS-CoV-2 Antigen (Rapid) - Final Rhythm Strip Rhythm Strip: A-fib Rate: 42 Ectopy: PVC(s) Radiology Impression Chest X-Ray 05/03/23 15:32 IMPRESSION: Cardiomegaly without radiographic evidence of acute cardiopulmonary disease. Electronically Signed: Colton Lazo MD at 16:54 EST , Assessment & Plan Assessment/Plan (1) Acute exacerbation of CHF (congestive heart failure): QUALIFIERS: Heart failure type: diastolic Qualified Code(s): I50.33 - Acute on chronic diastolic (congestive) heart failure PLAN: Plan 1. Acute diastolic CHF exacerbation with exacerbation of her pulmonary hypertension/HTN/HLD/A-fib ? She is a little bradycardic so we will hold her metoprolol, if she continues bradycardic or has increasing symptoms with lightheadedness with ambulation we will need to consult cardiology ? Echo was done in the beginning of February that shows right and left atrial dilation as well as an EF of 70% and pulmonary artery systolic pressure of 90 mmHg since she does have a history of A-fib diastolic dysfunction could not be assessed ? We will place her on IV Lasix twice daily as well as continuing her p.o. metolazone ? Continue with Eliquis ? We will monitor and make adjustments as necessary ? Fluid restriction 2. DM2 ? We will hold her home metformin ? Accu-Cheks ACHS ? Sliding scale insulin ? We will monitor and make adjustments as necessary DVT: Eliquis 77 minutes was spent on direct patient care, including documentation as well as chart review and collaboration with colleagues Charges/Coding Visit Charges Inpatient E&M: 58746 Init Hosp L3
[2023-05-03] MEDS: Furosemide 40 MG/4 ML Vial IV ×2 (18:13→21:07)
[2023-05-03] MEDS: APIXABAN 2.5 MG TABLET (WCH) PO (21:07)
[2023-05-03] MEDS: Atorvastatin Calcium 20 MG Tablet PO (21:08)
[2023-05-03] MEDS: Magnesium Sulfate 4gm/100mL 4 GM/100 ML IV.SOLN. IV (21:17)
[2023-05-03 22:40] LABS: Bedside Glucose 176 mg/dL (74-106)
[2023-05-04] MEDS: Acetaminophen 325 MG Tablet 650 MG PO ×3 (01:47→21:11)
[2023-05-04 03:00] VITALS: BP 104/60; PULSE 60; RESP 18; TEMP 36.6; O2SAT 94
[2023-05-04 04:04] VITALS: BMI 27.1
[2023-05-04] MEDS: Insulin Lispro 100 UNIT/ML INSULN.PEN SC ×4 (06:01→21:17)
[2023-05-04 06:12] LABS: Bedside Glucose 167 mg/dL (74-106)
[2023-05-04 06:17] LABS: Absolute Lymphocyte Count 1.47 X10^3/uL (0.83-4.51); Absolute Neutrophil Count 5.7 X10^3/uL (2.0-7.7); Basophil# 0.02 X10^3/uL; Basophil% 0.3 % (0-1); Eosinophil# 0.02 X10^3/uL; Eosinophils% 0.3 % (0-5); Hematocrit 29.7 % (37-47); Hemoglobin 9.5 g/dL (12.0-15.0); Lymphocyte # 1.47 X10^3/ul (0.83-4.51); Lymphocyte % 18.6 % (19-41); Mean Corpuscular Hgb 28.5 pg (27.0-32.0); Mean Corpuscular Volume 89.2 fL (81-99); Mean Platelet Vol. 10.1 fl (6.2-12.0); Monocyte# 0.69 X10^3/uL; Monocyte% 8.7 % (0-10); NRBC Flagged by Analyzer 0 % (0-5); Neutrophil # 5.66 X10^3/uL (2.7-7.7); Neutrophil % 71.5 % (47-70); Platelet Count 172 K/mm3 (150-450); RBC Distribution Width CV 13.9 % (11.6-14.6); RBC Distribution Width SD 44.1 fl (35.1-43.9); Red Blood Count 3.33 M/mm3 (4.2-5.4); White Blood Count 7.9 K/mm3 (4.4-11.0)
[2023-05-04 07:38] LABS: Anion Gap 8 (5-15); BUN 40 mg/dL (7-18); BUN/Creat Ratio 33.3 RATIO (10-20); Calcium,Total 9.7 mg/dL (8.5-10.1); Chloride 96 mmol/L (98-107); EST Glomerular Filtration Rate 45 mL/min (>60); Est Glom Filt Rate - Afr Amer 55 mL/min (>60); Estimated Creatinine Clearance 27.11 ml/min; Glucose 180 mg/dL (74-106); Magnesium 2.5 mg/dL (1.6-2.6); Potassium 2.8 mmol/L (3.5-5.1); Sodium Level 134 mmol/L (136-145)
--- NOTE | 2023-05-04 10:09 | PN.HOSP_ITS ---
Reason for Visit Reason for Visit: Diagnoses Acute on chronic diastolic (congestive) heart failure (05/03/23) Subjective Subjective Still short of breath but feeling better than she did yesterday Objective Data Objective Data Vital Signs: Vital Signs Temp Pulse Resp BP Pulse Ox O2 Del Method O2 Flow Rate 98 F 60 18 104/60 94 Nasal Cannula 2 05/04/23 03:00 05/04/23 03:00 05/04/23 03:00 05/04/23 03:00 05/04/23 03:00 05/04/23 03:00 05/04/23 03:00 FiO2 97 05/04/23 02:20 Oxygen Flow Rate (L/min) 2 Oxygen Delivery Method Nasal Cannula Weight: 67.3 kg Body Mass Index (BMI) 27.1 Intake & Output: Intake and Output for Last 24 Hours 05/02/23 05/03/23 05/04/23 23:59 23:59 23:59 Intake Total 340 / 340 Output Total 300 / 300 Balance 40 / 40 Lab / Micro Data 05/04/23 05:51 05/04/23 05:51 Labs: Laboratory Results - last 24 hr 05/03/23 15:15: WBC 7.9, RBC 3.63 L, Hgb 10.3 L, Hct 31.7 L, MCV 87.3, MCH 28.4, MCHC 32.5, RDW Std Deviation 42.8, RDW Coeff of Jim 13.9, Plt Count 193, MPV 10.6, Immature Gran % (Auto) 0.400, Neut % (Auto) 71.7 H, Lymph % (Auto) 17.8 L, [place] % (Auto) 8.6, Eos % (Auto) 1.0, Baso % (Auto) 0.5, Absolute Neuts (auto) 5.7, Absolute Lymphs (auto) 1.41, Nucleated RBC % 0, Sodium 133 L, Potassium 3.4 L, Chloride 97 L, Carbon Dioxide 31.0, Anion Gap 5, BUN 36 H, Creatinine 1.10 H, Estim Creat Clear Calc 29.57, Est GFR (MDRD) Af Amer 61, Est GFR (MDRD) Non-Af 50 L, BUN/Creatinine Ratio 32.7 H, Glucose 156 H, Calcium 10.0, Magnesium 1.3 L, Troponin I High Sens 25, B-Natriuretic Peptide 634.7 H, TSH 1.33 05/03/23 22:10: POC Glucose 176 H 05/04/23 05:51: WBC 7.9, RBC 3.33 L, Hgb 9.5 L, Hct 29.7 L, MCV 89.2, MCH 28.5, MCHC 32.0, RDW Std Deviation 44.1 H, RDW Coeff of Jim 13.9, Plt Count 172, MPV 10.1, Immature Gran % (Auto) 0.600, Neut % (Auto) 71.5 H, Lymph % (Auto) 18.6 L, [place] % (Auto) 8.7, Eos % (Auto) 0.3, Baso % (Auto) 0.3, Absolute Neuts (auto) 5.7, Absolute Lymphs (auto) 1.47, Nucleated RBC % 0, Sodium 134 L, Potassium 2.8 L, Chloride 96 L, Carbon Dioxide 30.0, Anion Gap 8, BUN 40 H, Creatinine 1.20 H, Estim Creat Clear Calc 27.11, Est GFR (MDRD) Af Amer 55 L, Est GFR (MDRD) Non-Af 45 L, BUN/Creatinine Ratio 33.3 H, Glucose 180 H, Calcium 9.7, Magnesium 2.5, POC Glucose 167 H Micro: Microbiology 05/03/23 15:35 Interface Orders SARS-CoV-2 Antigen (Rapid) - Final Radiography Diagnostic Testing: Radiology Impression Chest X-Ray 05/03/23 15:32 IMPRESSION: Cardiomegaly without radiographic evidence of acute cardiopulmonary disease. Electronically Signed: Colton Lazo MD at 16:54 EST , Rhythm Strip Rhythm Strip: A-fib Rate: 42 Ectopy: PVC(s) Physical Exam Narrative General: Alert, oriented, no apparent distress HEENT: Atraumatic, normocephalic Eyes: Anicteric, normal conjunctiva, extraocular movements grossly intact Neck: Supple Respiratory: Crackles at the bases, normal respiratory effort Cardiovascular: Regular rate GI: Soft, nontender, nondistended Extremities: No edema Musculoskeletal: Moving all extremities Neuro: No overt focal neurological deficits Skin: No rashes appreciated Psych: Cooperative Assessment & Plan Assessment/Plan (1) Acute exacerbation of CHF (congestive heart failure): QUALIFIERS: Heart failure type: diastolic Qualified Code(s): I50.33 - Acute on chronic diastolic (congestive) heart failure PLAN: Plan 1. Acute diastolic CHF exacerbation with exacerbation of her pulmonary hypertension/HTN/HLD/A-fib ? She is a little bradycardic so we will hold her metoprolol, if she continues bradycardic or has increasing symptoms with lightheadedness with ambulation we will need to consult cardiology ? Echo was done in the beginning of February that shows right and left atrial dilation as well as an EF of 70% and pulmonary artery systolic pressure of 90 mmHg since she does have a history of A-fib diastolic dysfunction could not be assessed ? We will place her on IV Lasix twice daily as well as continuing her p.o. metolazone ? Continue with Eliquis ? We will monitor and make adjustments as necessary ? Fluid restriction -05/04: Continue IV Lasix and metolazone, daily weights, I's and O's. Still feels fairly short of breath though slightly better than yesterday. Continue fluid restriction 2. DM2 ? We will hold her home metformin ? Accu-Cheks ACHS ? Sliding scale insulin ? We will monitor and make adjustments as necessary DVT: Laina 35 minutes was spent on direct patient care, including documentation as well as chart review and collaboration with colleagues Charges/Coding Visit Charges Inpatient E&M: 27562 Subs Hosp L2
[2023-05-04 10:39] VITALS: BP 116/48; PULSE 52; RESP 12; TEMP 36.8; O2SAT 92
[2023-05-04] MEDS: Metolazone 2.5 MG Tablet PO (10:48)
[2023-05-04] MEDS: APIXABAN 2.5 MG TABLET (WCH) PO ×2 (10:49→21:12)
[2023-05-04] MEDS: Aspirin 81 MG TAB.CHEW PO (10:49)
[2023-05-04] MEDS: Ferrous Sulfate 325 MG Tablet PO (10:49)
[2023-05-04] MEDS: Potassium Chloride Oral Tablet 20 MEQ 40 MEQ PO (10:55)
[2023-05-04] MEDS: Potassium Chloride 10mEq/100mL 10 MEQ/100 ML IV.SOLN. 100 MEQ IV BOLUS (11:04)
[2023-05-04 11:10] VITALS: O2SAT 95
[2023-05-04 11:59] LABS: Bedside Glucose 229 mg/dL (74-106)
--- NOTE | 2023-05-04 12:20 | CASEMGMT ---
ITALO COPELAND Assessment: Face to Face with pt for initial transition planning/care coordination assessment. RN DINORAH introduced self and role at [facility], pt voices understanding and consents to assessment. Pt is A&O x4 and answers all questions appropriately at this time. Pt sitting on edge of bed with dtr at bedside. Care providers, pharmacy, and demographics verified/updated. Admitting Dx:CHF exac PCP:Rosio Specialists:Kenny, cardio Preferred Pharmacy:[facility] Insurance:[employer] Prescription Benefit: no LNOK:Triny Dunn, dtr Living Arrangements: Pt lives with dtr in a single story home with no steps to enter. Pt reports she is I in ADL's and IADL's. Pt denies concerns at home. 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 DME:cane, walker, BP monitor, BGM with sufficient supplies of strips and lancets HHC/SNF:Denies hx of Pt states no concerns with going home at time of dc. Pt and dtr deny any need for any CHF education or HHC. Pt states no further concerns/needs. CM to follow. Advised pt to ask CM if any further question/concerns/needs arise, voices understanding. Pt Goal:Home Plan:Home with dtr support, follow for oxygen
[2023-05-04] MEDS: Potassium Chloride 10mEq/100mL 10 MEQ/100 ML IV.SOLN. 80 MEQ IV BOLUS (12:48)
[2023-05-04 13:51] LABS: Anion Gap 5 (5-15); BUN 42 mg/dL (7-18); BUN/Creat Ratio 34.4 RATIO (10-20); Calcium,Total 9.6 mg/dL (8.5-10.1); Chloride 97 mmol/L (98-107); Creatinine, Serum 1.22 mg/dL (0.55-1.02); EST Glomerular Filtration Rate 44 mL/min (>60); Est Glom Filt Rate - Afr Amer 54 mL/min (>60); Estimated Creatinine Clearance 26.66 ml/min; Glucose 210 mg/dL (74-106); Potassium 3.5 mmol/L (3.5-5.1); Sodium Level 133 mmol/L (136-145)
[2023-05-04 15:00] VITALS: BP 111/57; PULSE 64; RESP 12; TEMP 36.4; O2SAT 98
[2023-05-04 17:17] LABS: Bedside Glucose 166 mg/dL (74-106)
[2023-05-04 21:00] VITALS: BP 119/72; PULSE 77; RESP 18; TEMP 37.1; O2SAT 98
[2023-05-04] MEDS: Atorvastatin Calcium 20 MG Tablet PO (21:12)
[2023-05-04 21:55] LABS: Bedside Glucose 176 mg/dL (74-106)
[2023-05-05] VITALS (7 sets, daily range): BP systolic 109–138; BP diastolic 64–98; PULSE 48–71; RESP 14–16; TEMP 36.4–37.2; O2SAT 87–100
[2023-05-05] MEDS: Acetaminophen 325 MG Tablet 650 MG PO ×3 (04:15→20:09)
[2023-05-05 06:31] LABS: Absolute Lymphocyte Count 0.82 X10^3/uL (0.83-4.51); Absolute Neutrophil Count 5.9 X10^3/uL (2.0-7.7); Basophil# 0.02 X10^3/uL; Basophil% 0.3 % (0-1); Eosinophil# 0.07 X10^3/uL; Eosinophils% 0.9 % (0-5); Lymphocyte # 0.82 X10^3/ul (0.83-4.51); Lymphocyte % 10.8 % (19-41); Mean Corp Hgb Conc 32.1 g/dL (32-36); Mean Corpuscular Hgb 28.7 pg (27.0-32.0); Mean Corpuscular Volume 89.2 fL (81-99); Mean Platelet Vol. 10.5 fl (6.2-12.0); Monocyte% 9.2 % (0-10); NRBC Flagged by Analyzer 0 % (0-5); Neutrophil # 5.92 X10^3/uL (2.7-7.7); Platelet Count 153 K/mm3 (150-450); RBC Distribution Width CV 14.1 % (11.6-14.6); Red Blood Count 3.14 M/mm3 (4.2-5.4); White Blood Count 7.6 K/mm3 (4.4-11.0)
[2023-05-05] MEDS: Insulin Lispro 100 UNIT/ML INSULN.PEN SC ×4 (06:32→20:10)
[2023-05-05 06:52] LABS: Bedside Glucose 188 mg/dL (74-106)
[2023-05-05 06:56] LABS: Anion Gap 7 (5-15); BUN 36 mg/dL (7-18); BUN/Creat Ratio 34.6 RATIO (10-20); Calcium,Total 9.2 mg/dL (8.5-10.1); Chloride 97 mmol/L (98-107); Creatinine, Serum 1.04 mg/dL (0.55-1.02); EST Glomerular Filtration Rate 53 mL/min (>60); Est Glom Filt Rate - Afr Amer 65 mL/min (>60); Estimated Creatinine Clearance 31.28 ml/min; Glucose 200 mg/dL (74-106); Magnesium 1.7 mg/dL (1.6-2.6); Sodium Level 135 mmol/L (136-145)
[2023-05-05] MEDS: Ferrous Sulfate 325 MG Tablet PO (08:24)
[2023-05-05] MEDS: Aspirin 81 MG TAB.CHEW PO (08:24)
[2023-05-05] MEDS: APIXABAN 2.5 MG TABLET (WCH) PO ×2 (08:25→20:10)
[2023-05-05] MEDS: Metolazone 2.5 MG Tablet PO (08:25)
[2023-05-05] MEDS: Furosemide 20 MG/2 ML VIAL IV ×2 (08:34→17:35)
--- NOTE | 2023-05-05 08:52 | PCM.PN.HOSP ---
Reason for Visit Reason for Visit: Diagnoses Acute on chronic diastolic (congestive) heart failure (05/03/23) Subjective Subjective Slowly feeling better though still having SOB, not back to baseline but improved from yesterday. Feeling less dizzy today Objective Data Objective Data Vital Signs: Vital Signs Temp Pulse Resp BP Pulse Ox O2 Del Method O2 Flow Rate 97.9 F 68 16 115/74 92 Nasal Cannula 2 05/05/23 08:21 05/05/23 08:21 05/05/23 08:21 05/05/23 08:21 05/05/23 08:47 05/05/23 08:47 05/05/23 08:47 FiO2 97 05/04/23 02:20 Oxygen Flow Rate (L/min) 2 Oxygen Delivery Method Nasal Cannula Weight: 67.3 kg Body Mass Index (BMI) 27.1 Intake & Output: Intake and Output for Last 24 Hours 05/03/23 05/04/23 05/05/23 23:59 23:59 23:59 Intake Total 1260.00 / 1260.00 Output Total 500 / 500 Balance 760.00 / 760.00 Lab / Micro Data 05/05/23 05:28 05/05/23 05:28 Labs: Laboratory Results - last 24 hr 05/04/23 11:10: POC Glucose 229 H 05/04/23 13:30: Sodium 133 L, Potassium 3.5, Chloride 97 L, Carbon Dioxide 31.0, Anion Gap 5, BUN 42 H, Creatinine 1.22 H, Estim Creat Clear Calc 26.66, Est GFR (MDRD) Af Amer 54 L, Est GFR (MDRD) Non-Af 44 L, BUN/Creatinine Ratio 34.4 H, Glucose 210 H, Calcium 9.6 05/04/23 16:56: POC Glucose 166 H 05/04/23 21:17: POC Glucose 176 H 05/05/23 05:28: WBC 7.6, RBC 3.14 L, Hgb 9.0 L, Hct 28.0 L, MCV 89.2, MCH 28.7, MCHC 32.1, RDW Std Deviation 45.0 H, RDW Coeff of Jim 14.1, Plt Count 153, MPV 10.5, Immature Gran % (Auto) 0.800, Neut % (Auto) 78.0 H, Lymph % (Auto) 10.8 L, [place] % (Auto) 9.2, Eos % (Auto) 0.9, Baso % (Auto) 0.3, Absolute Neuts (auto) 5.9, Absolute Lymphs (auto) 0.82 L, Nucleated RBC % 0, Sodium 135 L, Potassium 3.0 L, Chloride 97 L, Carbon Dioxide 31.0, Anion Gap 7, BUN 36 H, Creatinine 1.04 H, Estim Creat Clear Calc 31.28, Est GFR (MDRD) Af Amer 65, Est GFR (MDRD) Non-Af 53 L, BUN/Creatinine Ratio 34.6 H, Glucose 200 H, Calcium 9.2, Magnesium 1.7 05/05/23 06:31: POC Glucose 188 H Micro: Microbiology 05/03/23 15:35 Interface Orders SARS-CoV-2 Antigen (Rapid) - Final Rhythm Strip Rhythm Strip: A-fib Rate: 42 Ectopy: PVC(s) Physical Exam Narrative General: Alert, oriented, no apparent distress HEENT: Atraumatic, normocephalic Eyes: Anicteric, normal conjunctiva, extraocular movements grossly intact Neck: Supple Respiratory: Crackles improving, normal respiratory effort Cardiovascular: Regular rate GI: Soft, nontender, nondistended Extremities: No edema Musculoskeletal: Moving all extremities Neuro: No overt focal neurological deficits Skin: No rashes appreciated Psych: Cooperative Assessment & Plan Assessment/Plan (1) Acute exacerbation of CHF (congestive heart failure): QUALIFIERS: Heart failure type: diastolic Qualified Code(s): I50.33 - Acute on chronic diastolic (congestive) heart failure PLAN: Plan #hypoxia w/ Acute diastolic CHF exacerbation with exacerbation of her pulmonary hypertension/HTN/HLD/A-fib ? She is a little bradycardic so we will hold her metoprolol, if she continues bradycardic or has increasing symptoms with lightheadedness with ambulation we will need to consult cardiology ? Echo was done in the beginning of February that shows right and left atrial dilation as well as an EF of 70% and pulmonary artery systolic pressure of 90 mmHg since she does have a history of A-fib diastolic dysfunction could not be assessed ? We will place her on IV Lasix twice daily as well as continuing her p.o. metolazone ? Continue with Eliquis ? We will monitor and make adjustments as necessary ? Fluid restriction -05/04: Continue IV Lasix and metolazone, daily weights, I's and O's. Still feels fairly short of breath though slightly better than yesterday. Continue fluid restriction -05/05: Due to slight bump in creatinine yesterday her IV Lasix were decreased slightly. She was tried on room air earlier and was 87% and required resumption of 2 L of O2. She continues to be diuresed with IV Lasix and metolazone #Bradycardia -Likely secondary to her metoprolol as bradycardia improving now that it is held -Is in A-fib and has a lot of ectopy so may need small dose of beta-fabien on discharge pending progress #DM2 ? We will hold her home metformin ? Accu-Cheks ACHS ? Sliding scale insulin ? We will monitor and make adjustments as necessary DVT: Laina 35 minutes was spent on direct patient care, including documentation as well as chart review and collaboration with colleagues Charges/Coding Visit Charges Inpatient E&M: 81175 Subs Hosp L2
[2023-05-05] MEDS: Potassium Chloride Oral Tablet 20 MEQ 40 MEQ PO (10:21)
[2023-05-05] MEDS: Magnesium Sulfate 4gm/100mL 4 GM/100 ML IV.SOLN. IV (10:29)
[2023-05-05 12:33] LABS: Bedside Glucose 262 mg/dL (74-106)
[2023-05-05] MEDS: Metoprolol Tartrate 25 MG Tablet 12.5 MG PO (14:30)
[2023-05-05 17:28] LABS: Bedside Glucose 173 mg/dL (74-106)
[2023-05-05] MEDS: Atorvastatin Calcium 20 MG Tablet PO (20:10)
[2023-05-05 22:57] LABS: Bedside Glucose 261 mg/dL (74-106)
[2023-05-06] VITALS (8 sets, daily range): BP systolic 102–132; BP diastolic 50–67; PULSE 48–84; RESP 16–20; TEMP 36.5–36.7; O2SAT 92–99; BMI 27.0
[2023-05-06] MEDS: Acetaminophen 325 MG Tablet 650 MG PO ×2 (02:21→13:45)
[2023-05-06] MEDS: MELATONIN 3 MG TABLET PO (02:21)
[2023-05-06 06:22] LABS: Absolute Lymphocyte Count 1.24 X10^3/uL (0.83-4.51); Absolute Neutrophil Count 4.2 X10^3/uL (2.0-7.7); Basophil# 0.03 X10^3/uL; Basophil% 0.5 % (0-1); Eosinophil# 0.09 X10^3/uL; Eosinophils% 1.5 % (0-5); Hematocrit 27.6 % (37-47); Hemoglobin 8.8 g/dL (12.0-15.0); Lymphocyte # 1.24 X10^3/ul (0.83-4.51); Lymphocyte % 20.3 % (19-41); Mean Corp Hgb Conc 31.9 g/dL (32-36); Mean Corpuscular Hgb 28.2 pg (27.0-32.0); Mean Corpuscular Volume 88.5 fL (81-99); Mean Platelet Vol. 10.4 fl (6.2-12.0); Monocyte# 0.56 X10^3/uL; Monocyte% 9.2 % (0-10); NRBC Flagged by Analyzer 0 % (0-5); Neutrophil # 4.17 X10^3/uL (2.7-7.7); Platelet Count 158 K/mm3 (150-450); RBC Distribution Width CV 14.1 % (11.6-14.6); RBC Distribution Width SD 44.8 fl (35.1-43.9); Red Blood Count 3.12 M/mm3 (4.2-5.4); White Blood Count 6.1 K/mm3 (4.4-11.0)
[2023-05-06 06:32] LABS: Bedside Glucose 171 mg/dL (74-106)
[2023-05-06 06:44] LABS: Anion Gap 6 (5-15); BUN 33 mg/dL (7-18); Calcium,Total 9.3 mg/dL (8.5-10.1); Chloride 97 mmol/L (98-107); Creatinine, Serum 0.94 mg/dL (0.55-1.02); EST Glomerular Filtration Rate 60 mL/min (>60); Est Glom Filt Rate - Afr Amer 72 mL/min (>60); Estimated Creatinine Clearance 34.61 ml/min; Glucose 179 mg/dL (74-106); Magnesium 2.3 mg/dL (1.6-2.6); Potassium 2.8 mmol/L (3.5-5.1); Sodium Level 135 mmol/L (136-145)
--- NOTE | 2023-05-06 06:54 | EKG12_ITS ---
Test Reason : CP Blood Pressure : / mmHG Vent. Rate : 097 BPM Atrial Rate : 000 BPM P-R Int : 000 ms QRS Dur : 144 ms QT Int : 350 ms P-R-T Axes : 000 -81 106 degrees QTc Int : 444 ms Atrial fibrillation Left axis deviation Non-specific intra-ventricular conduction block Abnormal ECG Confirmed by JAGRUTI JAIN, JESSE ([id number]), editor city MARTHA DOTSON ([id number]) on 05/15/2023 12:21:35 PM Referred By: JULIANA Confirmed By:JESSE CHAND MD
[2023-05-06] MEDS: Insulin Lispro 100 UNIT/ML INSULN.PEN SC ×2 (09:02→13:00)
[2023-05-06] MEDS: Ferrous Sulfate 325 MG Tablet PO (09:03)
[2023-05-06] MEDS: Aspirin 81 MG TAB.CHEW PO (09:03)
[2023-05-06] MEDS: APIXABAN 2.5 MG TABLET (WCH) PO (09:04)
--- NOTE | 2023-05-06 09:19 | PCM.PN.HOSP ---
Reason for Visit Reason for Visit: Diagnoses Acute on chronic diastolic (congestive) heart failure (05/03/23) Subjective Subjective Still intermittently somewhat dizzy, overnight was bradycardic again, breathing is improving Objective Data Objective Data Vital Signs: Vital Signs Temp Pulse Resp BP Pulse Ox O2 Del Method O2 Flow Rate 98.0 F 58 L 16 111/67 92 Room Air 2 05/06/23 09:00 05/06/23 09:00 05/06/23 09:00 05/06/23 09:00 05/06/23 09:09 05/06/23 09:09 05/06/23 09:00 FiO2 97 05/04/23 02:20 Oxygen Flow Rate (L/min) 2 Oxygen Delivery Method Room Air Weight: 67.1 kg Body Mass Index (BMI) 27.0 Intake & Output: Intake and Output for Last 24 Hours 05/04/23 05/05/23 05/06/23 23:59 23:59 23:59 Intake Total 1260.00 / 1260.00 880 / 880 100 / 100 Output Total 500 / 500 Balance 760.00 / 760.00 880 / 880 100 / 100 Lab / Micro Data 05/06/23 05:33 05/06/23 05:33 Labs: Laboratory Results - last 24 hr 05/05/23 11:47: POC Glucose 262 H 05/05/23 17:11: POC Glucose 173 H 05/05/23 20:04: POC Glucose 261 H 05/06/23 05:33: WBC 6.1, RBC 3.12 L, Hgb 8.8 L, Hct 27.6 L, MCV 88.5, MCH 28.2, MCHC 31.9 L, RDW Std Deviation 44.8 H, RDW Coeff of Ijm 14.1, Plt Count 158, MPV 10.4, Immature Gran % (Auto) 0.500, Neut % (Auto) 68.0, Lymph % (Auto) 20.3, [place] % (Auto) 9.2, Eos % (Auto) 1.5, Baso % (Auto) 0.5, Absolute Neuts (auto) 4.2, Absolute Lymphs (auto) 1.24, Nucleated RBC % 0, Sodium 135 L, Potassium 2.8 L, Chloride 97 L, Carbon Dioxide 32.0, Anion Gap 6, BUN 33 H, Creatinine 0.94, Estim Creat Clear Calc 34.61, Est GFR (MDRD) Af Amer 72, Est GFR (MDRD) Non-Af 60, BUN/Creatinine Ratio 35.0 H, Glucose 179 H, Calcium 9.3, Phosphorus 2.0 L, Magnesium 2.3 05/06/23 06:13: POC Glucose 171 H Micro: Microbiology 05/03/23 15:35 Interface Orders SARS-CoV-2 Antigen (Rapid) - Final Rhythm Strip Rhythm Strip: A-fib Rate: 42 Ectopy: PVC(s) Physical Exam Narrative General: Alert, oriented, no apparent distress HEENT: Atraumatic, normocephalic Eyes: Anicteric, normal conjunctiva, extraocular movements grossly intact Neck: Supple Respiratory: Crackles continue to improve, normal respiratory effort Cardiovascular: Regular rate GI: Soft, nontender, nondistended Extremities: No edema Musculoskeletal: Moving all extremities Neuro: No overt focal neurological deficits Skin: No rashes appreciated Psych: Cooperative Assessment & Plan Assessment/Plan (1) Acute exacerbation of CHF (congestive heart failure): QUALIFIERS: Heart failure type: diastolic Qualified Code(s): I50.33 - Acute on chronic diastolic (congestive) heart failure PLAN: Plan #hypoxia w/ Acute diastolic CHF exacerbation with exacerbation of her pulmonary hypertension/HTN/HLD/A-fib ? She is a little bradycardic so we will hold her metoprolol, if she continues bradycardic or has increasing symptoms with lightheadedness with ambulation we will need to consult cardiology ? Echo was done in the beginning of February that shows right and left atrial dilation as well as an EF of 70% and pulmonary artery systolic pressure of 90 mmHg since she does have a history of A-fib diastolic dysfunction could not be assessed ? We will place her on IV Lasix twice daily as well as continuing her p.o. metolazone ? Continue with Eliquis ? We will monitor and make adjustments as necessary ? Fluid restriction -05/04: Continue IV Lasix and metolazone, daily weights, I's and O's. Still feels fairly short of breath though slightly better than yesterday. Continue fluid restriction -05/05: Due to slight bump in creatinine yesterday her IV Lasix were decreased slightly. She was tried on room air earlier and was 87% and required resumption of 2 L of O2. She continues to be diuresed with IV Lasix and metolazone -05/06: Doing very well with diuresis, will attempt to transition to p.o. diuresis #Bradycardia -Likely secondary to her metoprolol as bradycardia improving now that it is held -Is in A-fib and has a lot of ectopy so may need small dose of beta-fabien on discharge pending progress -05/06: Had discussed with cardiology yesterday and started a small dose of beta-fabien given heart rate would go into low 100s and patient still in A-fib, was unable to tolerate this due to bradycardia. Cardiology evaluated today and recommended transfer to tertiary facility for pacemaker placement. Patient agreeable. Accepted at [facility], pending bed. #DM2 ? We will hold her home metformin ? Accu-Cheks ACHS ? Sliding scale insulin ? We will monitor and make adjustments as necessary DVT: Laina 35 minutes was spent on direct patient care, including documentation as well as chart review and collaboration with colleagues Charges/Coding Visit Charges Inpatient E&M: 46422 Subs Hosp L2
[2023-05-06] MEDS: Metolazone 2.5 MG Tablet PO (09:27)
[2023-05-06] MEDS: Furosemide 40 MG/4 ML Vial IV (09:27)
[2023-05-06] MEDS: 0.9% Saline Lock 10 ML Syringe IV (09:28)
[2023-05-06] MEDS: Potassium Chloride Oral Tablet 20 MEQ PO (09:28)
[2023-05-06] MEDS: Potassium Phosphate 30 MM in 0.9% Normal Saline (250mL Bag) 250 ML 42 MM IV (10:41)
[2023-05-06 14:00] LABS: Bedside Glucose 243 mg/dL (74-106)
--- NOTE | 2023-05-06 15:08 | CON.PCM.CA_ITS ---
<Statement entered by Ridge Anderson MD - 05/06/23 18:40> Pt seen & evaluated w/BUFFY. I personally interviewed & exam the pt. I was involved in all aspects of pt's orders, interpretation of results & treatment Assessment & Plan Assessment/Plan (1) Bradycardia: (2) Atrial fibrillation: (3) S/P TAVR (transcatheter aortic valve replacement): (4) Acute exacerbation of CHF (congestive heart failure): QUALIFIERS: Heart failure type: diastolic Qualified Code(s): I50.33 - Acute on chronic diastolic (congestive) heart failure PLAN: Plan * Pt is noted to have slow HR with up to a 3 sec pause. Her BB has been held for 2 days. Feel that she would benefit from a PPM. She would like to transfer to [facility] as she had her valve surgery there and follows with cardiology there. Agreeable with this. HPI Consult Data Date of Consult: 05/06/23 HPI Narrative HPI Narrative: FADI CHILDERS, is a 87 F who presented [facility] on 05/03/23 with increasing SOB over the last several days. She does have a hx of diastolic CHF, Afib, severe PHTN, Aortic stenosis with TAVR. BNP was elevated at 600. She was noted to be bradycardic. Her metoprolol was held. Pt admits to dizziness at home that is both positional and with walking. She has not noted a low HR at home where it was less than 50. 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. [facility] Medical History (Updated 05/06/23 @ 15:13 by Estela NUÑEZ, PA) Atrial fibrillation Atrial fibrillation Congestive heart failure Diabetes Hard of hearing Home Medications metformin 500 mg tablet 1,000 mg PO BIDCM DAIBETES 10/26/16 [History Last Taken 02/22/23] atorvastatin 20 mg tablet 20 mg PO QHS cholesterol 06/30/19 [History Last Taken 02/22/23] calcium carbonate-vitamin D3 600 mg-125 unit tablet 1 ea PO DAILY supplement 06/30/19 [History Last Taken 02/22/23] omega-3 fatty acids-fish oil 340 mg-1,000 mg capsule 1 ea PO DAILY supplement 06/30/19 [History Last Taken 02/22/23] apixaban 2.5 mg tablet (Eliquis) 2.5 mg PO BID anticoagulant 02/23/23 [History Last Taken 02/22/23] aspirin 81 mg capsule 81 mg PO DAILY health maintenance 02/23/23 [History Last Taken 02/22/23] cyanocobalamin (vitamin B-12) 1,000 mcg tablet 100 mcg PO DAILY health maintenance 02/23/23 [History Last Taken 02/22/23] ferrous sulfate 325 mg (65 mg iron) tablet (FeroSul) 325 mg PO DAILY supplement 02/23/23 [History Last Taken 02/22/23] metolazone 2.5 mg tablet 2.5 mg PO DAILY diuretic 02/23/23 [History Last Taken 02/22/23] metoprolol tartrate 25 mg tablet 50 mg PO BID heart rate, blood pressure 02/23/23 [History Last Taken 02/22/23] furosemide 40 mg tablet 40 mg PO DAILY diuretic 30 days #30 tabs 02/25/23 [Rx La st Taken 02/22/23] Allergy/AdvReac Type Severity Reaction Status Date / Time guaifenesin [From Robitussin] Allergy Intermediate Chest Verified 05/03/23 14:51 tightness Family History Other Cancer Surgical History (Updated 05/06/23 @ 15:13 by Estela NUÑEZ, PA) Aortic valve replaced S/P TAVR (transcatheter aortic valve replacement) Social History Smoking Status: Never smoker ROS Constitutional Constitutional: Denies chills, fatigue, fever(s) or malaise Eyes Eyes: Denies blurry vision ENT HEENT: Denies headache(s) or nasal discharge Cardiovascular Cardiovascular: Reports dyspnea on exertion and orthopnea; Denies chest pain or syncope Respiratory/Chest Respiratory/Chest: Denies cough, shortness of breath at rest or shortness of breath with exertion Gastrointestinal Gastrointestinal: Denies constipation, diarrhea, nausea or vomiting Genitourinary Genitourinary: Denies dysuria Neurologic Neurologic: Denies focal weakness, numbness or tremor(s) Psychiatric Psychiatric: Denies anxiety or depression Physical Exam Narrative General: Alert, oriented, no apparent distress HEENT: Atraumatic, normocephalic Eyes: Anicteric, normal conjunctiva, extraocular movements grossly intact Neck: Supple Respiratory: Crackles continue to improve, normal respiratory effort Cardiovascular: bradycardic, 1/6 BHAVYA. GI: Soft, nontender, nondistended Extremities: No edema Musculoskeletal: Moving all extremities Neuro: No overt focal neurological deficits Skin: No rashes appreciated Psych: Cooperative Risk Stratification Risk Stratification Applicable: No Charges/Coding Visit Charges Office Visits / Consults: 75005 IP Consult L4 Objective Data Vital Signs: Vital Signs Temp Pulse Resp BP Pulse Ox O2 Del Method O2 Flow Rate 98.1 F 70 20 H 113/50 L 94 Nasal Cannula 2 05/06/23 14:00 05/06/23 14:00 05/06/23 14:00 05/06/23 14:00 05/06/23 14:00 05/06/23 14:00 05/06/23 14:00 FiO2 97 05/04/23 02:20 Oxygen Flow Rate (L/min) 2 Oxygen Delivery Method Nasal Cannula Weight: 147 lb 14.883 oz Body Mass Index (BMI) 27.0 Intake & Output: Intake and Output for Last 24 Hours 05/04/23 05/05/23 05/06/23 23:59 23:59 23:59 Intake Total 1260.00 / 1260.00 880 / 880 580 / 580 Output Total 500 / 500 Balance 760.00 / 760.00 880 / 880 580 / 580 Lab / Micro Data 05/06/23 05:33 05/06/23 05:33 Labs: Laboratory Results - last 24 hr 05/05/23 17:11: POC Glucose 173 H 05/05/23 20:04: POC Glucose 261 H 05/06/23 05:33: WBC 6.1, RBC 3.12 L, Hgb 8.8 L, Hct 27.6 L, MCV 88.5, MCH 28.2, MCHC 31.9 L, RDW Std Deviation 44.8 H, RDW Coeff of Jim 14.1, Plt Count 158, MPV 10.4, Immature Gran % (Auto) 0.500, Neut % (Auto) 68.0, Lymph % (Auto) 20.3, [place] % (Auto) 9.2, Eos % (Auto) 1.5, Baso % (Auto) 0.5, Absolute Neuts (auto) 4.2, Absolute Lymphs (auto) 1.24, Nucleated RBC % 0, Sodium 135 L, Potassium 2.8 L, Chloride 97 L, Carbon Dioxide 32.0, Anion Gap 6, BUN 33 H, Creatinine 0.94, Estim Creat Clear Calc 34.61, Est GFR (MDRD) Af Amer 72, Est GFR (MDRD) Non-Af 60, BUN/Creatinine Ratio 35.0 H, Glucose 179 H, Calcium 9.3, Phosphorus 2.0 L, Magnesium 2.3 05/06/23 06:13: POC Glucose 171 H 05/06/23 11:49: POC Glucose 243 H Rhythm Strip Rhythm Strip: A-fib Rate: 42 Ectopy: PVC(s) Cardiology Labs/Tests 05/06/23 05:33: WBC 6.1, RBC 3.12 L, Hgb 8.8 L, Hct 27.6 L, MCV 88.5, MCH 28.2, MCHC 31.9 L, Plt Count 158, MPV 10.4, Immature Gran % (Auto) 0.500, Neut % (Auto) 68.0, Lymph % (Auto) 20.3, [place] % (Auto) 9.2, Eos % (Auto) 1.5, Baso % (Auto) 0.5, Absolute Neuts (auto) 4.2, Nucleated RBC % 0, Sodium 135 L, Potassium 2.8 L, Chloride 97 L, Carbon Dioxide 32.0, Anion Gap 6, BUN 33 H, Creatinine 0.94, Est GFR (MDRD) Af Amer 72, Est GFR (MDRD) Non-Af 60, BUN/Creatinine Ratio 35.0 H, Glucose 179 H, Calcium 9.3, Phosphorus 2.0 L, Magnesium 2.3 EKG: Afib, with slow ventricular rate with PVC ECHO: 02/2023 The estimated ejection fraction is 70 %. Unable to assess diastolic dysfunction. The left atrium is severely enlarged. The right atrium is severely enlarged. Moderate (2+) mitral valve insufficiency. Mild-Moderate (1-2+) aortic valve insufficiency.
[2023-05-06 16:54] LABS: Bedside Glucose 139 mg/dL (74-106)
[2023-05-06 18:19] LABS: Anion Gap 7 (5-15); BUN 32 mg/dL (7-18); BUN/Creat Ratio 30.5 RATIO (10-20); Calcium,Total 8.9 mg/dL (8.5-10.1); Chloride 95 mmol/L (98-107); Creatinine, Serum 1.05 mg/dL (0.55-1.02); EST Glomerular Filtration Rate 53 mL/min (>60); Est Glom Filt Rate - Afr Amer 64 mL/min (>60); Estimated Creatinine Clearance 30.98 ml/min; Glucose 191 mg/dL (74-106); Phosphorus 4.1 mg/dL (2.5-4.9); Sodium Level 135 mmol/L (136-145)
--- NOTE | 2023-05-06 19:12 | DS.PCM_ITS ---
Providers Date of Admission: 05/03/23 Date of Discharge: 05/07/23 Primary Care Physician: Dr. Robert Avelar MD Consultations 05/06/23 09:21 Consult: Cardiology Routine Consulting Provider: Ridge Anderson Reason for Consult: tj but off BB mild tachy, retrialed low dose BB and tj 20's-30's EMERGENT Consult: No MD Notified: Yes Date Notified: 05/06/23 Time Notified: 09:35 Method of Notification: Text Reason For Visit: CHF EXACERBATION Diagnosis Discharge Diagnosis (1) Bradycardia: Status: Acute Code(s): R00.1 - Bradycardia, unspecified (2) Atrial fibrillation: Status: Acute Code(s): I48.91 - Unspecified atrial fibrillation (3) S/P TAVR (transcatheter aortic valve replacement): Status: Acute Code(s): Z95.2 - Presence of prosthetic heart valve (4) Acute exacerbation of CHF (congestive heart failure): Status: Chronic Code(s): I50.9 - Heart failure, unspecified Qualifiers: Heart failure type: diastolic Qualified Code(s): I50.33 - Acute on chronic diastolic (congestive) heart failure Plan #hypoxia w/ Acute diastolic CHF exacerbation with exacerbation of her pulmonary hypertension/HTN/HLD/A-fib #Bradycardia #DM2 Medications at Discharge Home Medications metformin 500 mg tablet 1,000 mg PO BIDCM DAIBETES 10/26/16 atorvastatin 20 mg tablet 20 mg PO QHS cholesterol 06/30/19 calcium carbonate-vitamin D3 600 mg-125 unit tablet 1 ea PO DAILY supplement 06/30/19 omega-3 fatty acids-fish oil 340 mg-1,000 mg capsule 1 ea PO DAILY supplement 06/30/19 apixaban 2.5 mg tablet (Eliquis) 2.5 mg PO BID anticoagulant 02/23/23 aspirin 81 mg capsule 81 mg PO DAILY health maintenance 02/23/23 cyanocobalamin (vitamin B-12) 1,000 mcg tablet 100 mcg PO DAILY health maintenance 02/23/23 ferrous sulfate 325 mg (65 mg iron) tablet (FeroSul) 325 mg PO DAILY supplement 02/23/23 metolazone 2.5 mg tablet 2.5 mg PO DAILY diuretic 02/23/23 metoprolol tartrate 25 mg tablet 50 mg PO BID heart rate, blood pressure 02/23/23 furosemide 40 mg tablet 40 mg PO DAILY diuretic 30 days #30 tabs 02/25/23 Hospital Course Summary of Care Provided Minutes Spent on Discharge: 35 Hospital Course: 87-year-old female history of A-fib, heart failure with preserved ejection fraction, diabetes on metformin, TAVR presented [facility] 05[facility]03/2023 with shortness of breath and occasional dizziness and was found to be fluid overloaded and started on IV Lasix and metolazone was continued. She was also bradycardic with heart rate primarily in the 40s though go down to 30s and sometimes up to 50s, her home metoprolol was held and breathing responded to IV diuresis. Heart rate improved however then patient went at times have heart rate in low 100s, discussed with cardiology and tried very low-dose of beta- fabien however patient became bradycardic again and had periods of heart rate in 20s to 30s overnight and still intermittently bradycardic during the day. Cardiology recommended transfer to tertiary facility for pacemaker placement. Patient agreeable, transferred to [facility] for pacemaker evaluation. Physical Exam Narrative General: Alert, oriented, no apparent distress HEENT: Atraumatic, normocephalic Eyes: Anicteric, normal conjunctiva, extraocular movements grossly intact Neck: Supple Respiratory: Crackles continue to improve, normal respiratory effort Cardiovascular: Regular rate GI: Soft, nontender, nondistended Extremities: No edema Musculoskeletal: Moving all extremities Neuro: No overt focal neurological deficits Skin: No rashes appreciated Psych: Cooperative Weight / BMI Weight Weight: 67.1 kg Body Mass Index (BMI) 27.0 ABG / Lab / Microbiology Data 05/06/23 05:33 05/06/23 17:50 Laboratory: Laboratory Results - last 24 hr 05/06/23 11:49: POC Glucose 243 H 05/06/23 16:37: POC Glucose 139 H 05/06/23 17:50: Sodium 135 L, Potassium 3.0 L, Chloride 95 L, Carbon Dioxide 33.0 H, Anion Gap 7, BUN 32 H, Creatinine 1.05 H, Estim Creat Clear Calc 30.98, Est GFR (MDRD) Af Amer 64, Est GFR (MDRD) Non-Af 53 L, BUN/Creatinine Ratio 30.5 H, Glucose 191 H, Calcium 8.9, Phosphorus 4.1 Microbiology: Microbiology 05/03/23 15:35 Interface Orders SARS-CoV-2 Antigen (Rapid) - Final Meaningful Use Info Meaningful Use Diagnoses (Choose all that apply): CHF CHF SADIA/ARB ordered at discharge?: No Reason SADIA/ARB not ordered?: Normal EF Documented LVEF (%): 70 Discharge Plan Admission Admit Date/Time: 05/03/23 17:39 Attending Provider: Breanna Pisano Primary Care Provider: Robert Avelar Consulting Providers: Rohit Charles Farouk Discharge Orders/Prescriptions Prescriptions: No Action metformin 500 MG tablet 1,000 mg PO BIDCM atorvastatin 20 MG tablet 20 mg PO QHS calcium carbonate-vitamin D3 1 EACH tablet 1 ea PO DAILY omega-3 fatty acids-fish oil 1 EACH capsule 1 ea PO DAILY cyanocobalamin (vitamin B-12) 1,000 mcg tablet 100 mcg PO DAILY metolazone 2.5 mg tablet 2.5 mg PO DAILY Eliquis 2.5 mg tablet 2.5 mg PO BID metoprolol tartrate 25 MG tablet 50 mg PO BID ferrous sulfate [FeroSul] 325 mg (65 mg iron) tablet 325 mg PO DAILY Patient Comments: TAKE ONE TABLET BY MOUTH TWICE DAILY WITH MEALS aspirin 81 mg capsule 81 mg PO DAILY furosemide 40 MG tablet 40 mg PO DAILY 30 Days Qty: 30 0RF Patient Comments: alternate 1.5 tablets saturday, saturday and saturday and 2 tablets the other days Referrals / Follow Up: Robert Avelar MD [Primary Care Provider] - Disposition Disposition (needs filled in before D/C Order can be placed): Acute Care Hospital Charges/Coding Visit Charges Inpatient E&M: 95545 Disch Hosp >30min
[2023-05-06] MEDS: Potassium Chloride Oral Tablet 20 MEQ 40 MEQ PO (19:39)
--- NOTE | 2023-05-10 04:02 | EKG12_ITS ---
Test Reason : ANTWAN Blood Pressure : / mmHG Vent. Rate : 051 BPM Atrial Rate : 000 BPM P-R Int : 000 ms QRS Dur : 162 ms QT Int : 516 ms P-R-T Axes : 000 -72 091 degrees QTc Int : 475 ms Atrial fibrillation with slow ventricular response with premature ventricular or aberrantly conducted complexes Left axis deviation Left bundle branch block Abnormal ECG When compared with ECG of 03-MAY-2023 15:07, MANUAL COMPARISON REQUIRED, DATA IS UNCONFIRMED Confirmed by JAGRUTI JAIN, JESSE ([id number]), news copy editor MARTHA DOTSON ([id number]) on 05/15/2023 12:47:44 PM Referred By: Confirmed By:JESSE CHAND MD
== END 2023-05-06 19:55 | disposition short-term general hospital (02) | DRG 291 ==
LOC: ED 17:36 → PCU 18:11
PROVIDERS: Admitting Provider Family Medicine; Emergency Provider Emergency Medicine; PCP Family Medicine; Visit Provider Internal Medicine
DX: I11.0 Hypertensive heart disease with heart failure (principal); I50.33 Acute on chronic diastolic (congestive) heart failure; I27.20 Pulmonary hypertension, unspecified; Z79.01 Long term (current) use of anticoagulants; E11.9 Type 2 diabetes mellitus without complications; I48.91 Unspecified atrial fibrillation; R00.1 Bradycardia, unspecified; E78.5 Hyperlipidemia, unspecified; Z95.2 Presence of prosthetic heart valve; T44.7X5A Adverse effect of beta-adrenoreceptor antagonists, initial encounter; R09.02 Hypoxemia; Z79.84 Long term (current) use of oral hypoglycemic drugs; Z79.82 Long term (current) use of aspirin; Z79.899 Other long term (current) drug therapy
CPT/HCPCS: 36415; 71045; 80048; 82962; 83735; 83880; 84100; 84443; 84484; 85025; 87811; 93005; 97162; 97166; 99285; J7050; A4216; J1940

== ENCOUNTER 2023-05-09 22:53 | Emergency (ER) | payer OTHER, SELFPAY ==
[2023-05-09 22:56] VITALS: PULSE 66; RESP 19; TEMP 35.9; O2SAT 95; BMI 26.9
--- NOTE | 2023-05-09 22:58 | EKG12_ITS ---
Test Reason : CP Blood Pressure : / mmHG Vent. Rate : 064 BPM Atrial Rate : 064 BPM P-R Int : 246 ms QRS Dur : 084 ms QT Int : 438 ms P-R-T Axes : 008 079 -06 degrees QTc Int : 451 ms Sinus rhythm with 1st degree A-V block Nonspecific ST abnormality Abnormal QRS-T angle, consider primary T wave abnormality Abnormal ECG Confirmed by JAGRUTI JAIN, JESSE ([id number]), copy editor MARTHA DOTSON ([id number]) on 05/15/2023 12:11:18 PM Referred By: JULIANA Confirmed By:JESSE CHAND MD
[2023-05-09 22:59] VITALS: BP 143/76
[2023-05-09 23:20] VITALS: O2SAT 97
[2023-05-09 23:23] LABS: Absolute Lymphocyte Count 0.76 X10^3/uL (0.83-4.51); Absolute Neutrophil Count 8.3 X10^3/uL (2.0-7.7); Basophil# 0.02 X10^3/uL; Basophil% 0.2 % (0-1); Eosinophil# 0.05 X10^3/uL; Eosinophils% 0.5 % (0-5); Hematocrit 31.5 % (37-47); Hemoglobin 10.1 g/dL (12.0-15.0); Lymphocyte # 0.76 X10^3/ul (0.83-4.51); Lymphocyte % 7.8 % (19-41); Mean Corp Hgb Conc 32.1 g/dL (32-36); Mean Corpuscular Hgb 28.3 pg (27.0-32.0); Mean Corpuscular Volume 88.2 fL (81-99); Mean Platelet Vol. 9.8 fl (6.2-12.0); Monocyte# 0.64 X10^3/uL; Monocyte% 6.5 % (0-10); NRBC Flagged by Analyzer 0 % (0-5); Neutrophil # 8.27 X10^3/uL (2.7-7.7); Neutrophil % 84.6 % (47-70); Platelet Count 204 K/mm3 (150-450); RBC Distribution Width CV 14.8 % (11.6-14.6); RBC Distribution Width SD 46.1 fl (35.1-43.9); Red Blood Count 3.57 M/mm3 (4.2-5.4); White Blood Count 9.8 K/mm3 (4.4-11.0)
[2023-05-09 23:31] LABS: International Normalized Ratio 1.3; Prothrombin Time (Protime)PT. 16.2 SECONDS (11.7-14.9)
--- NOTE | 2023-05-09 23:40 | RAD_ITS ---
STUDY: X-RAY CHEST REASON FOR EXAM: Female, 87 years old. Chest pain TECHNIQUE: Single AP portable view of the chest. COMPARISON: May 03, 2023 chest x-ray FINDINGS: Allowing for summation artifact with breast tissue there is increasing density in the right lower lobe compared to prior study. There is an battery operated device overlying the left chest. The lungs are clear and expanded. There is no demonstrated pleural abnormality. There is mild cardiac enlargement. There is a visualized stent at the level of the aortic valve. Normal mediastinum and danitza. Normal visualized pulmonary arteries. Normal visualized aortic arch and descending thoracic aorta. There are diffuse degenerative changes of the visualized thoracic spine. There is degenerative osteoarthritis of the bilateral shoulders. There is no demonstrated abnormality of the visualized soft tissue structures of the upper abdomen. RAD/Chest 1 View (Portable) IMPRESSION: Allowing for summation artifact increasing density right lower lobe consider atelectasis and/or infiltrate. Status post Tavr. Mild cardiomegaly. Electronically Signed: Sheri Méndez MD at 0:27 EST Reading Location ID and State: [facility], [facility] / MD Tel , Service support ,
[2023-05-09 23:43] LABS: Anion Gap 8 (5-15); BUN 26 mg/dL (7-18); BUN/Creat Ratio 24.8 RATIO (10-20); Calcium,Total 9.5 mg/dL (8.5-10.1); Chloride 94 mmol/L (98-107); Creatinine, Serum 1.05 mg/dL (0.55-1.02); EST Glomerular Filtration Rate 53 mL/min (>60); Est Glom Filt Rate - Afr Amer 64 mL/min (>60); Estimated Creatinine Clearance 30.98 ml/min; Glucose 220 mg/dL (74-106); Potassium 3.9 mmol/L (3.5-5.1); Sodium Level 134 mmol/L (136-145); Troponin-I HS (w/2H Reflex) 55 pg/mL (3.0-54.0)
[2023-05-10] VITALS (10 sets, daily range): BP systolic 78–110; BP diastolic 46–58; PULSE 44–97; RESP 16–22; O2SAT 93–100
[2023-05-10 01:20] LABS: Reflex Troponin-HS? (from REC) Y
[2023-05-10 01:51] LABS: Troponin-I HS 50 pg/mL (3.0-54.0)
--- NOTE | 2023-05-10 03:05 | CT_ITS ---
STUDY: CT ABDOMEN AND PELVIS WITH CONTRAST REASON FOR EXAM: Female, 87 years old. Abd pain RADIATION DOSAGE (If Supplied By Facility): CTDIvol = ( 15.05 ) mGy, DLP = ( 804.24 ) mGycm TECHNIQUE: Transaxial images were obtained from the dome of the diaphragm to the symphysis pubis without oral contrast. IV 100mL Isovue-[id number] was administered. Sagittal and coronal images were reconstructed. Individualized dose optimization techniques were used for this CT. COMPARISON: None. FINDINGS: The visualized lung bases are unremarkable. There is mild cardiac enlargement. There is a stent at the level of the aortic valve. There is decreased attenuation of the liver consistent with steatosis. There is distention of the common bile duct. There is a 6.8 x 8.3 mm stone within the common bile duct at the level of the pancreas. Mild intra and extrahepatic ductal dilatation. Normal spleen. Normal pancreas. There is a solid mass within the left adrenal gland measuring 2.7 x 1.9 cm with Hounsfield units in the range of enhancement. Mild right renal cortical thinning. There is renal cortical thinning left kidney. Normal visualized stomach. The distended loops of small bowel. There is wall thickening of the proximal small bowel in the left upper quadrant. There is moderate stool in the colon. There is diverticulosis without diverticulitis. There is non-visualization of the appendix. Aorta is partially calcified Normal inferior vena cava. Normal retroperitoneum. Normal urinary bladder. There is absence of the uterus consistent with a prior hysterectomy. Normal abdominal wall. There is chronic loss of height at the level L1 of at least 50%. There is disc space narrowing and vacuum phenomenon multilevel moderate to severe neural foramina narrowing and central stenosis. CT/Abdomen/Pelvis W IV Cont ONLY IMPRESSION: There is a partially obstructed appearance of the common bile duct at the level of the pancreas secondary to a 6.8 x 8.3 mm distal common duct stone. There is mild intra and extrahepatic ductal dilatation. Recommend consideration for follow-up MRCP or ERCP. Mild right renal cortical thinning. Solid-appearing mass in the left adrenal gland. Could consider possible atypical adenoma versus possible neoplasm.. Recommend correlation with MRI findings. Mild distention of the small bowel and the left upper quadrant with wall thickening image 48 consider enteritis. Status post hysterectomy. The gallbladder is either contracted or there is a remnant gallbladder. Moderate constipation diverticulosis or diverticulitis. Hepatic steatosis. Electronically Signed: Sheri Méndez MD at 4:34 EST ,
[2023-05-10] MEDS: Ondansetron 4 MG/2 ML Vial IV (03:25)
--- NOTE | 2023-05-10 03:57 | ED.RN ---
Pt assisted stand by to the restroom and back to bed. Pt denied any complaints. Pt sat on the bed as this nurse was hooking pt back up to the monitor. Pt became unresponsive, fell back into the bed and went pulseless. Code Blue called. Roughly 30 chest compressions done and pt began to blink and reach hands into the air. HR 44 on the monitor, at bedside
[2023-05-10 04:07] LABS: Mucous, Urine 0 SEEN /hpf (<or=2+); Red Blood Cells-Urine 0 SEEN /hpf (0-5); Squamous Epithelial Cells - UA 0 SEEN /hpf (5-10)
[2023-05-10 04:08] LABS: Color, Urine Yellow (Yellow); Glucose, Dipstick Normal (Normal); Ketone-Dipstick 5 mg/dl (Negative); Leukocyte Esterase-Dipstick 500 /ul (Negative); Nitrite-Dipstick Positive (Negative); Occult Blood-Urine 150 /ul (Negative); Protein-Dipstick 100 mg/dl (Negative); Urine Bilirubin Dipstick 3 mg/dL (Negative); Urine Clarity Turbid (Clear); Urine Urobilinogen 8 mg/dl (Normal)
[2023-05-10 04:29] LABS: White Blood Cells >100 SEEN /hpf (0-5)
[2023-05-10 04:30] LABS: Bacteria 4+ /hpf (None Seen)
[2023-05-10] MEDS: Ceftriaxone 1 GM/50 ML BAG IV (04:55)
[2023-05-10] MEDS: 0.9% Normal Saline (500mL Bag) 500 ML 999 ML IV ×2 (05:09→06:00)
[2023-05-10 05:29] LABS: AST(SGOT) 215 U/L (15-37); Alanine Aminotransfer ALT/SGPT 158 U/L (13-56); Alkaline Phosphatase 156 U/L (45-117); Bilirubin, Direct 3.69 mg/dL (0.00-0.30); Globulin 3.8 g/dL (2.2-4.2); Lipase 18 U/L (13-75); Protein, Total 6.8 g/dL (6.4-8.2)
[2023-05-10 05:34] LABS: Troponin-I HS 106 pg/mL (3.0-54.0)
[2023-05-10 05:57] LABS: Lactic Acid 5.2 mmol/L (0.4-1.9)
--- NOTE | 2023-05-10 06:46 | NURSING ---
CALLED TRANSFER LINE FOR [facility]. FAXED FACESHEET
[2023-05-10] MEDS: 0.9% Normal Saline (1000mL) 1,000 ML 999 ML IV (08:06)
--- NOTE | 2023-05-10 08:26 | NURSING ---
[facility] ICU 18 NURSE TO NURSE [phone] LEE
--- NOTE | 2023-05-10 08:32 | ED.RN ---
DNR form signed by daughter, pt. gave verbal permission for daughter to sign paper for her.
--- NOTE | 2023-05-10 08:43 | EDS_ITS ---
HPI History of Present Illness Chief Complaint: Chest Pain Informant: patient and family Narrative Narrative: Patient is a 87-year-old female with past medical history of A-fib on Eliquis as well as hyperlipidemia and congestive heart failure. Patient was recently admitted at [facility] where her heart physician is secondary to a mild heart failure exacerbation and had her metoprolol decreased. She returned home in the last 24 hours and roughly 1 to 2 hours prior to arrival developed some upper abdominal pain with nausea and some back pain and there was concern this could be cardiac in nature so they present for repeat evaluation. Upon arrival to the ER patient reports resolution of the upper abdominal pain and back pain and states there is now some lower back pain and abdominal discomfort. [facility] Medical History Atrial fibrillation Atrial fibrillation Congestive heart failure Diabetes Hard of hearing Home Medications metformin 500 mg tablet 1,000 mg PO BIDCM DAIBETES 10/26/16 [History Last Taken 02/22/23] atorvastatin 20 mg tablet 20 mg PO QHS cholesterol 06/30/19 [History Last Taken 02/22/23] calcium carbonate-vitamin D3 600 mg-125 unit tablet 1 ea PO DAILY supplement 06/30/19 [History Last Taken 02/22/23] omega-3 fatty acids-fish oil 340 mg-1,000 mg capsule 1 ea PO DAILY supplement 06/30/19 [History Last Taken 02/22/23] apixaban 2.5 mg tablet (Eliquis) 2.5 mg PO BID anticoagulant 02/23/23 [History Last Taken 02/22/23] aspirin 81 mg capsule 81 mg PO DAILY health maintenance 02/23/23 [History Last Taken 02/22/23] cyanocobalamin (vitamin B-12) 1,000 mcg tablet 100 mcg PO DAILY health maintenance 02/23/23 [History Last Taken 02/22/23] ferrous sulfate 325 mg (65 mg iron) tablet (FeroSul) 325 mg PO DAILY supplement 02/23/23 [History Last Taken 02/22/23] metolazone 2.5 mg tablet 2.5 mg PO DAILY diuretic 02/23/23 [History Last Taken 02/22/23] metoprolol tartrate 25 mg tablet 50 mg PO BID heart rate, blood pressure 02/23/23 [History Last Taken 02/22/23] furosemide 40 mg tablet 40 mg PO DAILY diuretic 30 days #30 tabs 02/25/23 [Rx Last Taken 02/22/23] Allergy/AdvReac Type Severity Reaction Status Date / Time guaifenesin [From Robitussin] Allergy Intermediate Chest Verified 05/09/23 22:54 tightness Family History Other Cancer Surgical History (Updated 05/06/23 @ 15:13 by Estela NUÑEZ, PA) Aortic valve replaced S/P TAVR (transcatheter aortic valve replacement) Social History Smoking Status: Never smoker ROS ROS ED Constitutional Constitutional ED: Denies chills or fever(s) ENT ENT ED: Denies sore throat Cardiovascular Cardiovascular: Denies chest pain Respiratory/Chest Respiratory/Chest: Denies cough or dyspnea Gastrointestinal Gastrointestinal: Reports abdominal pain and nausea; Denies diarrhea or vomiting Genitourinary Genitourinary ED: Denies dysuria Musculoskeletal Musculoskeletal: Reports back pain; Denies myalgias Integumentary Denies rash Neurologic Neurologic: Denies headache(s) Hematologic/Lymphatic Hematologic/Lymphatic: Reports easy bleeding and easy bruising EXAM Physical Exam Const Vital Signs: 05/09/23 22:56 05/09/23 22:59 05/09/23 23:20 Temperature 96.7 F L Temperature Source Temporal Pulse Rate 66 Pulse Rate [2] Respiratory Rate 19 H Respiratory Rate [2] Blood Pressure 143/76 H Blood Pressure Mean 98 Pulse Ox 95 97 Oxygen Delivery Method Room Air Room Air Oxygen Flow Rate (L/min) 05/10/23 04:04 05/10/23 03:57 05/10/23 04:19 Temperature Temperature Source Pulse Rate 97 88 Pulse Rate [2] 44 L Respiratory Rate 19 H 18 Respiratory Rate [2] 17 Blood Pressure 110/54 L 80/58 L Blood Pressure Mean 72 65 Pulse Ox 94 97 Oxygen Delivery Method Room Air Nasal Cannula Oxygen Flow Rate (L/min) 2 05/10/23 04:59 05/10/23 05:00 05/10/23 06:00 Temperature Temperature Source Pulse Rate 88 90 81 Pulse Rate [2] Respiratory Rate 16 16 16 Respiratory Rate [2] Blood Pressure 78/52 L 78/52 L 80/46 L Blood Pressure Mean 60 60 57 Pulse Ox 99 99 100 Oxygen Delivery Method Nasal Cannula Oxygen Flow Rate (L/min) 2 05/10/23 07:49 Temperature Temperature Source Pulse Rate 72 Pulse Rate [2] Respiratory Rate 22 H Respiratory Rate [2] Blood Pressure 84/55 L Blood Pressure Mean 64 Pulse Ox 99 Oxygen Delivery Method Oxygen Flow Rate (L/min) Positive well nourished and well developed General Appearance ED: well developed HEENT HEENT Narrative: Normocephalic atraumatic Eyes PERRL and EOMs intact bilaterally Eyes Narrative: Faint scleral icterus noted Neck supple Chest Wall palpation of chest normal Resp normal respiratory effort and clear to auscultation bilaterally Cardio regular rate Rate: other Other Details: Irregularly irregular rhythm with regular rate Radial and carotid pulses are equal and symmetric GI GI Narrative: Abdomen is soft but there is slight distention noted. There is pain with palpation in the midepigastric to right upper quadrant region without voluntary guarding or rigidity No pulsatile mass or fluid wave Auscultation: normoactive bowel sounds Palpation: soft Extremity Extremity Narrative: Trace pitting edema to the bilateral lower extremities with negative Homans' sign Neuro oriented x3 and CN's II-XII intact bilaterally Sensorium / Orientation: alert Psych mental status grossly normal Skin Skin Narrative: Skin is jaundiced in color General Skin Exam: jaundice MDM MDM MDM Narrative Medical decision making narrative: Patient presented to the ER afebrile and slightly hypertensive. She has known congestive heart failure and A-fib but based on her report of abdominal pain and back pain there is concern this could be gallstone pancreatitis versus gastritis versus acute coronary syndrome versus pneumonia or congestive heart failure exacerbation. The patient's troponin was 55 with a delta trending downward to 50 and chart review reveals that her value from roughly 1 week ago was 25 indicating a non-clinically significant elevation. However the patient did appear jaundiced on exam and secondary to his liver enzymes were obtained which show elevated liver enzymes concerning for potential retained stone in the common bile duct as her gallbladder is been previously removed. CT scan was obtained which did confirm this. The patient however then dropped her blood pressure and urine shows signs of infection and her lactic is elevated concerning for urosepsis. The patient was started on gentle IV hydration secondary to history of heart failure. There was initial improvement of blood pressure. Patient was given Rocephin as well secondary to the UTI. The case was discussed with Dr. Marquez/gastroenterology at this facility and based on her Eliquis use and apparent urosepsis and her other chronic medical conditions he feels she would best be treated at a higher level of care. Requested [facility] where she was recently admitted with a do not have GI on- call this weekend and can therefore cannot perform her ERCP and also there are no beds available. Therefore they requested [facility]. Case was discussed with Dr. Kohler/gastroenterology. He states that he will perform the ERCP but patient needs to be off her Eliquis for 3 days and that her blood pressure will need to be improved prior to the procedure. Because of her hypotension and infection indicating shock the case was discussed with ICU. Recommend adding Zosyn because of the potential for biliary infection from the stone. They also recommend that as there is been initial improvement of her blood pressure from the 1 L of fluid to provide the full 30 mill per kilo fluid bolus which equals 2 L of fluid. Please note that the patient went to the bathroom walking under her own power and then after returning to the bed from the bathroom as she was being hooked up to the monitor had a brief episode of approximate 30 seconds to 1 minute where she went unresponsive. At this time it was felt that there was no pulse present so compressions were provided for approximately 30 seconds to 1 minute. Patient had spontaneous return of circulation and consciousness. Blood pressure at that time remained low and her heart rate was low at approximately 40. Therefore it is unsure if patient truly was asystolic or if she simply decreased her heart rate and blood pressure to the point where it is hard to palpate a pulse. History & Record Review Discussion w/independent historian: Patient and Family Lab Data Attestation: I reviewed the patient's lab results. Labs: Laboratory Results - last 24 hr 05/09/23 05/10/23 05/10/23 23:17 01:28 04:00 WBC 9.8 RBC 3.57 L Hgb 10.1 L Hct 31.5 L MCV 88.2 MCH 28.3 MCHC 32.1 RDW Std Deviation 46.1 H RDW Coeff of Jim 14.8 H Plt Count 204 MPV 9.8 Immature Gran % (Auto) 0.400 Neut % (Auto) 84.6 H Lymph % (Auto) 7.8 L Hemphill % (Auto) 6.5 Eos % (Auto) 0.5 Baso % (Auto) 0.2 Absolute Neuts (auto) 8.3 H Absolute Lymphs (auto) 0.76 L Nucleated RBC % 0 PT 16.2 H INR 1.3 Sodium 134 L Potassium 3.9 Chloride 94 L Carbon Dioxide 32.0 Anion Gap 8 BUN 26 H Creatinine 1.05 H Estim Creat Clear Calc 30.98 Est GFR (MDRD) Af Amer 64 Est GFR (MDRD) Non-Af 53 L BUN/Creatinine Ratio 24.8 H Glucose 220 H Lactic Acid Calcium 9.5 Total Bilirubin Direct Bilirubin AST ALT Alkaline Phosphatase Troponin I High Sens 55 H 50 Total Protein Albumin Globulin Lipase Urine Color Yellow Urine Clarity Turbid Urine pH 8.0 Ur Specific [place] 1.010 Urine Protein 100 H Urine Glucose (UA) Normal Urine Ketones 5 H Urine Occult Blood 150 H Urine Nitrite Positive H Urine Bilirubin 3 H Urine Urobilinogen 8 H Ur Leukocyte Esterase 500 H Urine RBC 0 SEEN Urine WBC >100 SEEN Ur Squamous Epith Cells 0 SEEN Urine Bacteria 4+ Urine Mucus 0 SEEN 05/10/23 05/10/23 04:55 05:12 WBC RBC Hgb Hct MCV MCH MCHC RDW Std Deviation RDW Coeff of Jim Plt Count MPV Immature Gran % (Auto) Neut % (Auto) Lymph % (Auto) [place] % (Auto) Eos % (Auto) Baso % (Auto) Absolute Neuts (auto) Absolute Lymphs (auto) Nucleated RBC % PT INR Sodium Potassium Chloride Carbon Dioxide Anion Gap BUN Creatinine Estim Creat Clear Calc Est GFR (MDRD) Af Amer Est GFR (MDRD) Non-Af BUN/Creatinine Ratio Glucose Lactic Acid 5.2 H* Calcium Total Bilirubin 4.80 H Direct Bilirubin 3.69 H AST 215 H ALT 158 H Alkaline Phosphatase 156 H Troponin I High Sens 106 H Total Protein 6.8 Albumin 3.0 L Globulin 3.8 Lipase 18 Urine Color Urine Clarity Urine pH Ur Specific [place] Urine Protein Urine Glucose (UA) Urine Ketones Urine Occult Blood Urine Nitrite Urine Bilirubin Urine Urobilinogen Ur Leukocyte Esterase Urine RBC Urine WBC Ur Squamous Epith Cells Urine Bacteria Urine Mucus Radiography Diagnostic Testing: Clinical Impression(s) from Imaging Studies Chest X-Ray 05/09/23 23:40 IMPRESSION: Allowing for summation artifact increasing density right lower lobe consider atelectasis and/or infiltrate. Status post Tavr. Mild cardiomegaly. Electronically Signed: Sheri Méndez MD at 0:27 EST , Abdomen/Pelvis CT 05/10/23 03:05 IMPRESSION: There is a partially obstructed appearance of the common bile duct at the level of the pancreas secondary to a 6.8 x 8.3 mm distal common duct stone. There is mild intra and extrahepatic ductal dilatation. Recommend consideration for follow-up MRCP or ERCP. Mild right renal cortical thinning. Solid-appearing mass in the left adrenal gland. Could consider possible atypical adenoma versus possible neoplasm.. Recommend correlation with MRI findings. Mild distention of the small bowel and the left upper quadrant with wall thickening image 48 consider enteritis. Status post hysterectomy. The gallbladder is either contracted or there is a remnant gallbladder. Moderate constipation diverticulosis or diverticulitis. Hepatic steatosis. Electronically Signed: Sheri Méndez MD at 4:34 EST , Chest x-ray as interpreted by the emergency medicine physician reveals atelectasis in the right lower lobe without acute infiltrate pneumothorax or pleural effusion Management Discussion w/another healthcare provider: Media Services Specialist Critical Care Time Critical Care Time: Yes Critical care time (excluding procedures): Discussing w/Patient &/or Family/Continuous Improvement Black Belt, Discussing w/Consultants, Arranging Admission or Transfer and - (Please note critical care time of 37 minutes) Discharge Plan Triage Chief Complaint: Chest Pain ED Provider: Sameer Kelly Dx/Rx/DC Orders Clinical Impression: UTI (urinary tract infection), Common bile duct calculi, Atrial fibrillation, Current use of director long term care anticoagulation, Sepsis Prescriptions: No Action metformin 500 MG tablet 1,000 mg PO BIDCM atorvastatin 20 MG tablet 20 mg PO QHS calcium carbonate-vitamin D3 1 EACH tablet 1 ea PO DAILY omega-3 fatty acids-fish oil 1 EACH capsule 1 ea PO DAILY cyanocobalamin (vitamin B-12) 1,000 mcg tablet 100 mcg PO DAILY metolazone 2.5 mg tablet 2.5 mg PO DAILY Eliquis 2.5 mg tablet 2.5 mg PO BID metoprolol tartrate 25 MG tablet 50 mg PO BID ferrous sulfate [FeroSul] 325 mg (65 mg iron) tablet 325 mg PO DAILY Patient Comments: TAKE ONE TABLET BY MOUTH TWICE DAILY WITH MEALS aspirin 81 mg capsule 81 mg PO DAILY furosemide 40 MG tablet 40 mg PO DAILY 30 Days Qty: 30 0RF Patient Comments: alternate 1.5 tablets saturday, saturday and saturday and 2 tablets the other days Primary Care Provider: Robert Avelar Referrals: Robert Avelar MD [Primary Care Provider] - Disposition Disposition: Acute Care Hospital Discharge Location: [facility]
[2023-05-10] MEDS: Piperacil/Tazobactam 3.375 GM in 0.9% Normal Saline (50mL MB+) 50 ML IV (09:01)
[2023-05-10 09:15] LABS: Reflex Lactate? Y
[2023-05-10 10:19] LABS: Lactic Acid 3.1 mmol/L (0.4-1.9)
== END 2023-05-10 10:38 | disposition short-term general hospital (02) ==
PROVIDERS: Emergency Medicine; Emergency Provider Emergency Medicine; PCP Family Medicine; Visit Provider Emergency Medicine
DX: A41.9 Sepsis, unspecified organism (principal); I50.9 Heart failure, unspecified; I48.91 Unspecified atrial fibrillation; E11.9 Type 2 diabetes mellitus without complications; N39.0 Urinary tract infection, site not specified; K80.51 Calculus of bile duct without cholangitis or cholecystitis with obstruction; E78.5 Hyperlipidemia, unspecified; Z79.01 Long term (current) use of anticoagulants; Z90.49 Acquired absence of other specified parts of digestive tract; Z79.899 Other long term (current) drug therapy; Z79.84 Long term (current) use of oral hypoglycemic drugs; Z79.82 Long term (current) use of aspirin; Z95.2 Presence of prosthetic heart valve
CPT/HCPCS: 71045; 74177; 80048; 80076; 81001; 83605; 83690; 84484; 85025; 85610; 87086; 92950; 93005; 96361; 96365; 96367; 96375; 99285; J7030; J7040; Q9967; A4216; J2405

== ENCOUNTER 2024-08-13 10:36 | Inpatient (IN) | payer OTHER, SELFPAY ==
[2024-08-13] VITALS (16 sets, daily range): BP systolic 118–137; BP diastolic 63–78; PULSE 84–103; RESP 14–24; TEMP 36.6–37.4; O2SAT 88–100; BMI 26.6; BMI 25.5
--- NOTE | 2024-08-13 10:42 | EKG12_ITS ---
Test Reason : Blood Pressure : */* mmHG Vent. Rate : 86 BPM Atrial Rate : 80 BPM P-R Int : * ms QRS Dur : 142 ms QT Int : 418 ms P-R-T Axes : * -78 80 degrees QTcB Int : 500 ms Atrial fibrillation Left axis deviation Left bundle branch block Abnormal ECG Confirmed by JOHAN VELIZ ([id number]), social media editor SATISH HORTON ([id number]) on 08/17/2024 7:09:30 AM Referred By: Confirmed By: JOHAN VELIZ
--- NOTE | 2024-08-13 10:45 | EDS_ITS ---
HPI History of Present Illness Chief Complaint: Cough Detail of Chief Complaint: Cough, congestion and wheezing Informant: patient and family Onset/Context/Timing Onset: Yesterday Context: sudden Timing: Continuous and Waxes and wanes Quality: Positive for Dyspnea on exertion and Wheezing; Negative for Orthopnea or PND Current Severity: Mild Maximum Severity: Severe Worsened by: Exertion; Not Worsened By Lying flat Relieved by: Nothing Associated Symptoms cough, rhinorrhea and post nasal drip; Negative for ear pain, fever, sore throat, subjective, chills or sweats Chest Pain: Positive for None Narrative Narrative: Patient is an 89-year-old woman. She has history of atrial fibrillation status post TAVR aortic valve replacement, bradycardia necessitating placement of pacemaker, heart failure with preserved ejection fraction and long-term anticoagulant. Based on medication list she has history of diabetes. Patient presents with respiratory symptoms started yesterday. She complains of shortness of breath. She has increased shortness of breath with minimal activity. She has a slightly hoarse voice. She has stable 1 large pillow orthopnea. She has chronic edema of her lower extremities. She denies history of VTE. Patient denies dysuria, frequency, urgency or hematuria. PE Risk Factors: Negative for Cancer, OCP + Smoking + > 35, Prior DVT or PE, Recent immobilization, Recent surgery or Recent travel [facility] Medical History Diabetes Atrial fibrillation Atrial fibrillation Hard of hearing Congestive heart failure Home Medications ?Medication ?Instructions ?Recorded ?Last Taken ?Type metformin 500 mg tablet 1,000 mg PO BIDCM DAIBETES 0 10/26/16 02/22/23 History atorvastatin 20 mg tablet 20 mg PO QHS cholesterol 01/1002/22/23 History calcium carbonate-vitamin D3 600 1 ea PO DAILY supplem ent 06/30/19 02/22/23 History mg-125 unit tablet omega-3 fatty acids-fish oil 340 1 ea PO DAILY supplem ent 06/30/19 02/22/23 History mg-1,000 mg capsule apixaban 2.5 mg tablet (Eliquis) 2.5 mg PO BID anticoa gulant 02/23/23 02/22/23 History aspirin 81 mg capsule 81 mg PO DAILY [facility] 02/23/23 02/22/23 History cyanocobalamin (vitamin B-12) 100 mcg PO DAILY health maintenance 02/23/23 02/22/23 History 1,000 mcg tablet ferrous sulfate 325 mg (65 mg 325 mg PO DAILY suppleme nt 02/23/23 02/22/23 History iron) tablet (FeroSul) metolazone 2.5 mg tablet 2.5 mg PO DAILY diuretic 08/1602/22/23 History metoprolol tartrate 25 mg tablet 50 mg PO BID heart ra te, blood 02/23/23 02/22/23 History pressure furosemide 40 mg tablet 40 mg PO DAILY diuretic 30 d ays 02/25/23 02/22/23 Rx #30 tabs Allergy/AdvReac Type Severity Reaction Status Date / Time guaifenesin (From Robitussin) Allergy Intermediate Chest Verified 05/09/23 22:54 tightness Family History Other Cancer Surgical History S/P TAVR (transcatheter aortic valve replacement) Aortic valve replaced Social History (Updated 08/13/24 @ 10:[address] Silverio Dwyer MD) household members: family Smoking Status: Never smoker ROS ROS ED Constitutional Constitutional ED: Denies chills, fever(s) or sweats Eyes Eyes: Denies blurry vision or change in vision ENT ENT ED: Reports rhinorrhea and sore throat; Denies ear pain Cardiovascular Cardiovascular: Reports orthopnea; Denies chest pain, palpitations or paroxysmal nocturnal dyspnea Respiratory/Chest Respiratory/Chest: Reports cough, dyspnea, dyspnea on exertion and orthopnea; Denies paroxysmal nocturnal dyspnea or sputum Gastrointestinal Gastrointestinal: Reports diarrhea and other Details: Patient reports 3 loose watery stools prior to presentation. ; Denies abdominal pain, constipation, melena, nausea or vomiting Genitourinary Genitourinary ED: Denies dysuria, hematuria or urinary frequency Musculoskeletal Musculoskeletal: Denies arthralgias or myalgias Integumentary Denies rash Neurologic Neurologic: Reports weakness; Denies headache(s) or paresthesias Hematologic/Lymphatic Hematologic/Lymphatic: Denies easy bleeding or easy bruising EXAM Physical Exam Const Vital Signs: 08/13/24 10:37 08/13/24 10:41 08/13/24 10:42 Temperature 98.2 F 98.2 F Temperature Source Oral Oral Pulse Rate 84 87 Respiratory Rate 16 22 H Respiratory Effort Short of Breath Respiratory Depth Normal Respiratory Pattern Normal Blood Pressure 137/75 H 137/75 H Blood Pressure Mean 95 95 Pulse Ox 88 92 Oxygen Delivery Method Room Air Room Air Nasal Cannula Oxygen Flow Rate (L/min) 2 08/13/24 11:13 08/13/24 11:13 Temperature Temperature Source Pulse Rate 87 Respiratory Rate 17 Respiratory Effort Respiratory Depth Respiratory Pattern Normal Blood Pressure Blood Pressure Mean Pulse Ox 94 Oxygen Delivery Method Nasal Cannula Oxygen Flow Rate (L/min) 3 Positive well nourished and well developed Constitutional Narrative: Patient appears cyanotic, pale and has mild conversational dyspnea. General Appearance ED: well developed and pallor; Negative for NAD HEENT Reports dry mucous membranes atraumatic Mouth ED: Yes dry mucous membranes Mouth: dry mucous membranes Eyes PERRL and EOMs intact bilaterally General Eye ED: Yes pale conjunctiva; Negative for scleral icterus Neck no lymphadenopathy, supple, no meningeal signs and no JVD Resp normal respiratory effort and No clear to auscultation bilaterally Auscultation: wheezes expiratory wheezes and throughout and diminished lung sounds; Negative for rales or rhonchi Cardio regular rate and regular rhythm Cardio Narrative: Patient has a grade 2-3 systolic murmur noted that occurred essentially throughout the precordium. Is a crescendo and decrescendo entire murmur. GI non-tender, non-distended and no masses Auscultation: normoactive bowel sounds Back/Spine no CVA tenderness Extremity Negative for normal to inspection Extremity Narrative: Venous stasis dermatitis with significant pitting edema. Neuro oriented x3 and CN's II-XII intact bilaterally [place] Coma Scale: document GCS findings Spontaneous Obeys Commands Oriented 15 Sensorium / Orientation: alert Psych mental status grossly normal Skin No no wounds Skin Narrative: There is slight skin breakdown lower extremity. There is no evidence of infection. General Skin Exam: pallor; Negative for jaundice MDM MDM MDM Narrative Medical decision making narrative: Clinically patient's findings are consistent with a viral illness. Since her symptoms predominantly respiratory need to evaluate for influenza, RSV and COVID. She was told since she is hypoxic she will need admission. Her pulse ox was 86% on room air. ABG was obtained to assess acid-base status and CO2. Chest x-ray to evaluate for pneumonia. Blood work is obtained to assess for endorgan dysfunction. Since patient has not had increasing orthopnea denies PND and has chronic lymphedema suspect that wheezing is due to pulmonary pathology and not congestive heart failure. History & Record Review Additional record(s) reviewed:: Prior inpatient record and Prior ED visit (Most recent ER visit was April 2023 for atrial fibrillation and exacerbation of congestive heart failure. She has had multiple ER visits and admissions for heart failure.) Lab Data Attestation: I reviewed the patient's lab results. Lab results narrative: Comprehensive metabolic panel reveals a BUN/creatinine of 50 and 1.3 which is higher than baseline. Estimated GFR is 41. BUN to creatinine ratio is approximate 39-1. Glucose is elevated 145. Lactate elevated 4.1. Labs: Laboratory Results - last 24 hr 08/13/24 08/13/24 10:46 10:46 WBC Cancelled Corrected WBC Cancelled RBC Cancelled Hgb Cancelled Hct Cancelled MCV Cancelled MCH Cancelled MCHC Cancelled RDW Std Deviation Cancelled RDW Coeff of Jim Cancelled Plt Count Cancelled MPV Cancelled Immature Gran % (Auto) Cancelled Neut % (Auto) Cancelled Lymph % (Auto) Cancelled [place] % (Auto) Cancelled Eos % (Auto) Cancelled Baso % (Auto) Cancelled Absolute Neuts (auto) Cancelled Absolute Lymphs (auto) Cancelled Total Counted Cancelled Neutrophils % (Manual) Cancelled Band Neutrophils % Cancelled Lymphocytes % (Manual) Cancelled Monocytes % (Manual) Cancelled Eosinophils % (Manual) Cancelled Basophils % (Manual) Cancelled Metamyelocytes % Cancelled Myelocytes % Cancelled Promyelocytes % Cancelled Blast Cells % Cancelled Plasma Cell % (Manual) Cancelled Other Cells % Cancelled Nucleated RBC % Cancelled Nucleated RBCs/100 WBC Cancelled Differential Comment Cancelled Diff Path Review Cancelled Hypersegmented Neuts Cancelled Atypical Lymphocytes Cancelled Reactive Lymphocytes Cancelled Smudge Cells Cancelled Toxic Granulation Cancelled Toxic Vacuolation Cancelled Dohle Bodies Cancelled David Rods Cancelled Platelet Estimate Cancelled Plt Morphology Comment Cancelled RBC Morphology Cancelled Cancelled Polychromasia Cancelled Hypochromasia Cancelled Basophilic Stippling Cancelled Anisocytosis Cancelled Microcytosis Cancelled Macrocytosis Cancelled Spherocytes Cancelled Sickle Cells Cancelled Target Cells Cancelled Tear Drop Cells Cancelled Ovalocytes Cancelled Stomatocytes Cancelled [place] Bodies Cancelled Slinger Cells Cancelled Bite Cells Cancelled Crenated Cell Cancelled Acanthocytes (Spur) Cancelled Rouleaux Cancelled Schistocytes Cancelled Sodium 138 Potassium 4.5 Chloride 106 Carbon Dioxide 22.0 Anion Gap 10 BUN 50 H Creatinine 1.30 H Estim Creat Clear Calc 27.21 Est GFR (MDRD) Af Amer 50 L Est GFR (MDRD) Non-Af 41 L BUN/Creatinine Ratio 38.5 H Glucose 145 H Lactic Acid 4.1 H* Calcium 9.4 Total Bilirubin 0.80 AST 23 ALT 20 Alkaline Phosphatase 70 Total Protein 7.8 Albumin 3.4 Globulin 4.4 H Albumin/Globulin Ratio 0.8 L Rapid antigen for COVID, influenza and RSV is positive for influenza A. ABG Data ABG results: ABG 08/13/24 11:11 Specimen Type ART Sample Site L Brach pH 7.29 L Bicarbonate Actual 23.4 Total CO2 25 Base Excess -3 L O2 Saturation 11 L O2 % 3.0 ABG pCO2 48.9 H ABG pO2 < 12 L* Michael Test Positive O2 Delivery Device Cannula Vent Mode Not entered Crit Call To/Read Back Yes Blood Gas Notified Whom gall0 Blood Gas Notified Time 11:14:23 Radiography Chest X-Ray - ED: 2 View, Read by ED Physician, Heart, Mediastinum, Bony Structures and Right Infiltrate (Infiltrate right lower lobe. Patient's symptoms started yesterday. She did have a pacemaker. The findings on the right side are new from May 09, 2023.) EKG Initial EKG: Attestation: I personally reviewed and interpreted this EKG as follows: Interpretation: - (There is significant artifact. Patient has known pacer and there is pacer spikes on the monitor suspect this is a paced rhythm rate of 85. Cures duration is prolonged at 142 ms. [place] to the left.) Management Discussion w/another healthcare provider: Hospitalist (Dr. Martinez was made aware of patient's history physical and laboratory studies. Will treat with Tamiflu and see if she gets better otherwise we will get advanced imaging for x- ray findings.) Critical Care Time Critical Care Time: Yes Critical care time (excluding procedures): 30-74 minutes (31), Including time spent: (History, physical, documentation, independent interpretation of laboratory results and x-rays), Discussing w/Patient &/or Family/Check Writer, Discussing w/Consultants and Arranging Admission or Transfer Discharge Plan Triage Chief Complaint: Cough ED Provider: Silverio Dwyer Dx/Rx/DC Orders Clinical Impression: Influenza A, Acidosis, lactic, Acute prerenal azotemia, Acute renal insufficiency, Bronchospasm, acute, Anticoagulant long-term use, History of chronic CHF Prescriptions: No Action metformin 500 MG tablet 1,000 mg PO BIDCM atorvastatin 20 MG tablet 20 mg PO QHS calcium carbonate-vitamin D3 1 EACH tablet 1 ea PO DAILY omega-3 fatty acids-fish oil 1 EACH capsule 1 ea PO DAILY cyanocobalamin (vitamin B-12) 1,000 mcg tablet 100 mcg PO DAILY metolazone 2.5 mg tablet 2.5 mg PO DAILY Eliquis 2.5 mg tablet 2.5 mg PO BID metoprolol tartrate 25 MG tablet 50 mg PO BID ferrous sulfate [FeroSul] 325 mg (65 mg iron) tablet 325 mg PO DAILY Patient Comments: TAKE ONE TABLET BY MOUTH TWICE DAILY WITH MEALS aspirin 81 mg capsule 81 mg PO DAILY furosemide 40 MG tablet 40 mg PO DAILY 30 Days Qty: 30 0RF Patient Comments: alternate 1.5 tablets saturday, saturday and saturday and 2 tablets the other days Primary Care Provider: Robert Avelar Referrals: Robert Avelar MD [Primary Care Provider] - Print Language: Tristanian Disposition Disposition: Acute Care Hospital [facility]
[2024-08-13] MEDS: Albuterol 2.5 MG/3 ML VIAL.NEB. INHALATION ×3 (11:10)
[2024-08-13 11:15] LABS: ALB/GLOB Ratio 0.8 RATIO (0.9-2.4); AST(SGOT) 23 U/L (15-37); Alanine Aminotransfer ALT/SGPT 20 U/L (13-56); Albumin, Serum 3.4 g/dL (3.2-5.0); Alkaline Phosphatase 70 U/L (45-117); Anion Gap 10 (5-15); BUN 50 mg/dL (7-18); BUN/Creat Ratio 38.5 RATIO (10-20); Calcium,Total 9.4 mg/dL (8.5-10.1); Chloride 106 mmol/L (98-107); EST Glomerular Filtration Rate 41 mL/min (>60); Est Glom Filt Rate - Afr Amer 50 mL/min (>60); Estimated Creatinine Clearance 27.21 ml/min; Globulin 4.4 g/dL (2.2-4.2); Glucose 145 mg/dL (74-106); Potassium 4.5 mmol/L (3.5-5.1); Protein, Total 7.8 g/dL (6.4-8.2); Sodium Level 138 mmol/L (136-145)
[2024-08-13 11:17] LABS: Allen Test Positive; Base Excess -3 mmol/L (-2 to +2); Bicarbonate 23.4 mmol/L (22-26); Mode Not entered; O2 Delivery Device Cannula; PO2 < 12 mmHG (75-100); SITE L Brach; SO2 11 % (95-99); Total Carbon Dioxide 25 mmol/L; pCO2 48.9 mmHg (35-45); pH 7.29 (7.35-7.45)
--- NOTE | 2024-08-13 11:44 | RAD_ITS ---
PROCEDURE: CHEST PA AND LATERAL REASON FOR EXAM: Cough and wheezing. TECHNIQUE: AP and lateral views were obtained. COMPARISON: Comparison is made with prior study dated May 03, 2023. FINDINGS: Moderate cardiomegaly with prior mitral valve replacement. Left-sided unipolar pacemaker is seen. Focal infiltrates in the right middle lobe in keeping with pneumonic infiltrates. Radiographic follow-up recommended. Tortuosity of the thoracic aorta. The bones are unremarkable. RAD/Chest PA and Lateral IMPRESSION: Patchy infiltrates in the right middle lobe. Follow-up recommended. Reading Location: [id number]
[2024-08-13 11:48] LABS: Lactic Acid 4.1 mmol/L (0.4-1.9)
--- NOTE | 2024-08-13 11:56 | PCM.HP.STD ---
HPI - General General Date of Admission: 08/13/24 Date of Service: 08/13/24 Chief Complaint: shortness of breath HPI Narrative FADI CHILDERS, is a 89 F with a PMH as outlined who presents via the ED on 08/13/2024 with a complaint of shortness of breath. Her symptoms started one day prior to admission. She had had family members who had had influenza. She says she did get her flu shot this season. She was short of breath and had a cough which was productive of clear sputum. She denied any fever but admitted to chills. She denied any nausea or vomiting. Her symptoms worsened so family decided to bring her into the ED. Review of systems otherwise negative. Vitals in the ED were pulse rate of 87, respirate rate of 17 and oxygen saturation of 94% on 3 L of oxygen by nasal cannula. Chemistry showed sodium of 138 with potassium of 4.5 and creatinine of 1.3. Temperature was 98.2 Fahrenheit. Lactic acid was 4.1. Chest x-ray showed moderate cardiomegaly with prior mitral valve replacement and a left-sided unipolar pacemaker as well as focal infiltrates in the right middle lobe in keeping with pneumonic infiltrates. Tested positive for influenza A. She has been admitted to be managed for hypoxia due to acute influenza A infection with probable superimposed pneumonia. [facility] Medical History (Updated 08/13/24 @ 17:[address] Renee Holder MD) Anxiety Diabetes Osteoporosis Kidney stones Non-smoker Pacemaker Hypertension Diabetes Atrial fibrillation Hard of hearing Congestive heart failure Home Medications ?Medication ?Instructions ?Recorded ?Last Taken ?Type atorvastatin 20 mg tablet 20 mg PO DAILY cholesterol 06/30/19 08/12/24 History apixaban 2.5 mg tablet (Eliquis) 2.5 mg PO BID anticoagulant 02/23/23 08/12/24 History cyanocobalamin (vitamin B-12) 100 mcg PO DAILY health maintenance 02/23/23 08/12/24 History 1,000 mcg tablet ferrous sulfate 325 mg (65 mg 325 mg PO DAILY supplement 02/23/23 08/12/24 History iron) tablet (FeroSul) metolazone 2.5 mg tablet 2.5 mg PO DAILY diuretic 02/23/23 08/12/24 History metoprolol tartrate 25 mg tablet 12.5 mg PO Q12H heart rate, blood 02/23/23 08/12/24 History pressure furosemide 40 mg tablet 40 mg PO DAILY diuretic 30 days 02/25/23 08/12/24 Rx #30 tabs acetaminophen 325 mg tablet 650 mg PO Q6H PRN pain 08/13/24 Unknown History aspirin 81 mg chewable tablet 1 tab PO DAILY 08/13/24 08/12/24 History (Aspirin Childrens) calcium 600 mg (as 1 tab PO BID 08/13/24 08/12/24 History carbonate)-vitamin D3 5 mcg (200 unit) tablet (Calcium 600 + D(3)) ferrous sulfate 325 mg (65 mg 325 mg PO BIDCM 08/13/24 08/12/24 History iron) tablet (Feosol) fluorouracil 5 % topical cream 1 applic topical BID 08/13/24 08/12/24 History hydroxyzine pamoate 25 mg capsule 25 - 50 mg PO BID PRN anxiety 08/13/24 Unknown History magnesium chloride 71.5 mg 143 mg PO BID 08/13/24 08/12/24 History (magnesium chloride) tablet,delayed release (Slow-Mag) metformin 500 mg tablet,extended 1,000 mg PO BID 08/13/24 08/12/24 History release 24 hr omega-3 fatty acids 1,000 mg 2,000 mg PO DAILY 08/13/24 08/12/24 History capsule potassium chloride 20 mEq 40 meq PO DAILY 08/13/24 08/12/24 History tablet,extended release Allergy/AdvReac Type Severity Reaction Status Date / Time guaifenesin (From Robitussin) Allergy Intermediate Chest Verified 05/09/23 22:54 tightness Family History Other Cancer Surgical History (Updated 08/13/24 @ 13:42 by Nicole Gavin) History of cholecystectomy History of appendectomy S/P TAVR (transcatheter aortic valve replacement) Aortic valve replaced Social History (Updated 08/13/24 @ 10:[address] Silverio Dwyer MD) household members: family Smoking Status: Never smoker ROS Constitutional Constitutional: Reports chills, fatigue, malaise and weakness; Denies anorexia or fever(s) Eyes Eyes: Denies change in vision ENT HEENT: Denies dysphagia or headache(s) Cardiovascular Cardiovascular: Reports dyspnea on exertion; Denies chest pain, edema, lightheadedness, orthopnea, palpitations, paroxysmal nocturnal dyspnea, rapid heart rate or syncope Respiratory/Chest Respiratory/Chest: Reports cough, dyspnea, productive cough, shortness of breath at rest and shortness of breath with exertion; Denies hemoptysis or wheezing Gastrointestinal Gastrointestinal: Denies abdominal pain, constipation, diarrhea, nausea or vomiting Genitourinary Genitourinary: Denies burning urination or dysuria Musculoskeletal Musculoskeletal: Denies arthralgias or joint pain Neurologic Neurologic: Denies confusion, dizziness, focal weakness, headache(s), numbness, seizures or syncope Psychiatric Psychiatric: Denies anxiety Endocrine Endocrinology: Denies change in body appearance Vital Signs Vital Signs Vital Signs: 08/13/24 10:37 08/13/24 10:41 08/13/24 10:42 Temperature 98.2 F 98.2 F Temperature Source Oral Oral Pulse Rate 84 87 Respiratory Rate 16 22 H Respiratory Effort Short of Breath Respiratory Depth Normal Respiratory Pattern Normal Blood Pressure 137/75 H 137/75 H Blood Pressure Mean 95 95 Pulse Ox 88 92 Oxygen Delivery Method Room Air Room Air Nasal Cannula Oxygen Flow Rate (L/min) 2 08/13/24 11:13 08/13/24 11:13 Temperature Temperature Source Pulse Rate 87 Respiratory Rate 17 Respiratory Effort Respiratory Depth Respiratory Pattern Normal Blood Pressure Blood Pressure Mean Pulse Ox 94 Oxygen Delivery Method Nasal Cannula Oxygen Flow Rate (L/min) 3 Weight Weight: 145 lb 15.136 oz Body Mass Index (BMI) 26.6 Physical Exam Const alert, oriented x3 and no apparent distress Constitutional Narrative: frail General Appearance: cooperative HEENT normocephalic, head/scalp atraumatic, hearing grossly normal bilaterally, moist oral mucous membranes and oropharynx normal Mouth: oral and palatal mucosa normal Eyes PERRL, EOMs intact bilaterally and conjunctivae normal Neck no lymphadenopathy and supple Resp Resp Narrative: moderately diminished breath sounds bibasally, no wheezes. Bilateral crackles. On 2L of oxygen by nasal canula Cardio regular rate, regular rhythm, S1 normal heart sound, S2 normal heart sound and no murmurs GI normal to inspection, nondistended, normoactive bowel sounds, soft to palpation, non-tender and non-distended Extremity normal to inspection, full ROM and no clubbing, cyanosis or edema Neuro oriented x3, CN's II-XII intact bilaterally, moves all extremities and no focal motor deficits Sensorium / Orientation: awake and alert Motor Exam: strength 5/5 throughout Psych affect normal Psych Narrative: frail Results Lab / Micro Data 08/13/24 12:05 08/13/24 10:46 Labs: Laboratory Results - last 24 hr 08/13/24 10:46: WBC Cancelled, Corrected WBC Cancelled, RBC Cancelled, Hgb Cancelled, Hct Cancelled, MCV Cancelled, MCH Cancelled, MCHC Cancelled, RDW Std Deviation Cancelled, RDW Coeff of Jim Cancelled, Plt Count Cancelled, MPV Cancelled, Immature Gran % (Auto) Cancelled, Neut % (Auto) Cancelled, Lymph % (Auto) Cancelled, [place] % (Auto) Cancelled, Eos % (Auto) Cancelled, Baso % (Auto) Cancelled, Absolute Neuts (auto) Cancelled, Absolute Lymphs (auto) Cancelled, Total Counted Cancelled, Neutrophils % (Manual) Cancelled, Band Neutrophils % Cancelled, Lymphocytes % (Manual) Cancelled, Monocytes % (Manual) Cancelled, Eosinophils % (Manual) Cancelled, Basophils % (Manual) Cancelled, Metamyelocytes % Cancelled, Myelocytes % Cancelled, Promyelocytes % Cancelled, Blast Cells % Cancelled, Plasma Cell % (Manual) Cancelled, Other Cells % Cancelled, Nucleated RBC % Cancelled, Nucleated RBCs/100 WBC Cancelled, Differential Comment Cancelled, Diff Path Review Cancelled, Hypersegmented Neuts Cancelled, Atypical Lymphocytes Cancelled, Reactive Lymphocytes Cancelled, Smudge Cells Cancelled, Toxic Granulation Cancelled, Toxic Vacuolation Cancelled, Dohle Bodies Cancelled, David Rods Cancelled, Platelet Estimate Cancelled, Plt Morphology Comment Cancelled, RBC Morphology Cancelled 08/13/24 10:46: RBC Morphology Cancelled, Polychromasia Cancelled, Hypochromasia Cancelled, Basophilic Stippling Cancelled, Anisocytosis Cancelled, Microcytosis Cancelled, Macrocytosis Cancelled, Spherocytes Cancelled, Sickle Cells Cancelled, Target Cells Cancelled, Tear Drop Cells Cancelled, Ovalocytes Cancelled, Stomatocytes Cancelled, [place] Bodies Cancelled, [place] Cells Cancelled, Bite Cells Cancelled, Crenated Cell Cancelled, Acanthocytes (Spur) Cancelled, Rouleaux Cancelled, Schistocytes Cancelled, Sodium 138, Potassium 4.5, Chloride 106, Carbon Dioxide 22.0, Anion Gap 10, BUN 50 H, Creatinine 1.30 H, Estim Creat Clear Calc 27.21, Est GFR (MDRD) Af Amer 50 L, Est GFR (MDRD) Non-Af 41 L, BUN/Creatinine Ratio 38.5 H, Glucose 145 H, Lactic Acid 4.1 H*, Calcium 9.4, Total Bilirubin 0.80, AST 23, ALT 20, Alkaline Phosphatase 70, Total Protein 7.8, Albumin 3.4, Globulin 4.4 H, Albumin/Globulin Ratio 0.8 L ABG Data ABG results: ABG 08/13/24 11:11 Specimen Type ART Sample Site L Brach pH 7.29 L Bicarbonate Actual 23.4 Total CO2 25 Base Excess -3 L O2 Saturation 11 L O2 % 3.0 ABG pCO2 48.9 H ABG pO2 < 12 L* Michael Test Positive O2 Delivery Device Cannula Vent Mode Not entered Crit Call To/Read Back Yes Blood Gas Notified Whom gall0 Blood Gas Notified Time 11:14:23 Assessment & Plan Assessment/Plan (1) Right lower lobe pulmonary infiltrate: (2) Influenza A: (3) Hypoxia: PLAN: Plan #Hypoxia due to acute influenza infection with superimposed pneumonia Admit to PCU. Came in with shortness of breath as well as chills and productive cough Tested positive for influenza A. Had had numerous contacts with influenza A. Chest x-ray showed right middle lobe infiltrates. WBCs 5. Lactic acid was 4.1 on admission and is now 3.3 with hydration. VBG done showed bicarb of 6 but bicarb on BMP was 22. ABG was therefore done which showed bicarb of 18.9 with pH of 7.35. BNP was markedly elevated at 2466. Started on Tamiflu 75 mg twice daily as well as IV ceftriaxone and doxycycline. Also diuresed with IV Lasix 40 mg twice daily. Breathing treatments with bronchodilators. Titrate oxygen to maintain saturation above 90%. #Acute on chronic heart failure BNP elevated as above. Start diuresis with IV Lasix 40 mg daily. Titrate oxygen to maintain saturation above 90% . Fluid restriction 1500 cc daily. On metolazone also 2D echo from 02/2023 showed EF of 70% and no regional motion abnormalities noted and unable to assess diastolic dysfunction. #Elevated lactic acid: Lactic acid was 4.1 and trended down to 3.3. This is likely due to hypoxia. Should improve as patient condition improves. #Atrial fibrillation: On Eliquis. Also on metoprolol. Is also s/p pacemaker. #Aortic stenosis s/p TAVR: Stable #Chronic anemia: Hemoglobin is 8.8. Baseline hemoglobin seems to be between 8 and 10. Will monitor closely. #Type 2 diabetes mellitus: Hold metformin on account of elevated lactic acid. Insulin sliding scale. Accu-Cheks ACHS. DVT prophylaxis: On Eliquis CODE STATUS: DNR CCA no intubation Patient and daughter counseled extensively about different types of CODE STATUS including full code, DNR CCA and DNR CCA. Patient elects to be DNRCCA no intubation. Total aueg-gw-lwmr time 16 minutes. Charges/Coding Visit Charges Inpatient E&M: 67072 Init Hosp L3 Procedures Hospitalists Procedures: 33190 Advncd Care Plan 30 Min
[2024-08-13 12:28] LABS: Absolute Lymphocyte Count 0.94 X10^3/uL (0.83-4.51); Absolute Neutrophil Count 3.4 X10^3/uL (2.0-7.7); Basophil# 0.01 X10^3/uL; Basophil% 0.2 % (0-1); Hematocrit 29.1 % (37-47); Hemoglobin 8.8 g/dL (12.0-15.0); Lymphocyte # 0.94 X10^3/ul (0.83-4.51); Mean Corp Hgb Conc 30.2 g/dL (32-36); Mean Corpuscular Hgb 28.1 pg (27.0-32.0); Mean Platelet Vol. 10.3 fl (6.2-12.0); Monocyte# 0.56 X10^3/uL; Monocyte% 11.3 % (0-10); NRBC Flagged by Analyzer 0 % (0-5); Neutrophil # 3.43 X10^3/uL (2.7-7.7); Neutrophil % 69.1 % (47-70); Platelet Count 129 K/mm3 (150-450); RBC Distribution Width CV 17.7 % (11.6-14.6); Red Blood Count 3.13 M/mm3 (4.2-5.4)
[2024-08-13] MEDS: Oseltamivir Phosphate 75 MG Capsule PO (12:28)
[2024-08-13 12:49] LABS: Allen Test Positive; Base Excess -7 mmol/L (-2 to +2); Bicarbonate 18.9 mmol/L (22-26); Blood Gas Specimen Type ART; Mode Not entered; O2 Delivery Device Cannula; PO2 76 mmHG (75-100); SITE L Brach; SO2 95 % (95-99); Total Carbon Dioxide 20 mmol/L; pCO2 34.2 mmHg (35-45); pH 7.35 (7.35-7.45)
[2024-08-13 14:52] LABS: Reflex Lactate? Y
[2024-08-13 16:14] LABS: Lactic Acid 3.3 mmol/L (0.4-1.9)
[2024-08-13] MEDS: Ondansetron 4 MG/2 ML Vial IV (16:39)
[2024-08-13] MEDS: 0.9% Saline Lock 10 ML Syringe IV (16:39)
[2024-08-13] MEDS: Ipratropium/Albuterol Sulfate 3 ML AMPUL.NEB INHALATION (20:30)
[2024-08-13] MEDS: Metoprolol Tartrate 25 MG Tablet 12.5 MG PO (22:54)
[2024-08-13] MEDS: Atorvastatin Calcium 20 MG Tablet PO (22:54)
[2024-08-13] MEDS: Magnesium Chloride 64 MG Delay Rel.Tablet 128 MG PO (22:54)
[2024-08-13] MEDS: APIXABAN 2.5 MG TABLET (WCH) PO (22:55)
[2024-08-13] MEDS: Oseltamivir Phosphate 30 MG Capsule PO (22:56)
[2024-08-13] MEDS: Doxycycline 100 MG in 0.9% Normal Saline (250mL Bag) 250 ML 250 MG IV (22:58)
[2024-08-14] VITALS (13 sets, daily range): BP systolic 100–105; BP diastolic 48–70; PULSE 70–84; RESP 17–18; TEMP 36.5–37; O2SAT 91–100
[2024-08-14 00:17] LABS: Bedside Glucose 117 mg/dL (74-106)
[2024-08-14 06:36] LABS: Absolute Lymphocyte Count 0.59 X10^3/uL (0.83-4.51); Absolute Neutrophil Count 2.9 X10^3/uL (2.0-7.7); Basophil# 0.01 X10^3/uL; Basophil% 0.2 % (0-1); Hematocrit 27.1 % (37-47); Hemoglobin 8.4 g/dL (12.0-15.0); Lymphocyte # 0.59 X10^3/ul (0.83-4.51); Lymphocyte % 13.9 % (19-41); Mean Corpuscular Hgb 28.4 pg (27.0-32.0); Mean Corpuscular Volume 91.6 fL (81-99); Mean Platelet Vol. 9.9 fl (6.2-12.0); Monocyte# 0.69 X10^3/uL; Monocyte% 16.3 % (0-10); NRBC Flagged by Analyzer 0.7 % (0-5); Neutrophil # 2.91 X10^3/uL (2.7-7.7); Neutrophil % 68.9 % (47-70); POSITIVE DIFFERENTIAL YES; Platelet Count 127 K/mm3 (150-450); RBC Distribution Width CV 17.3 % (11.6-14.6); RBC Distribution Width SD 57.5 fl (35.1-43.9); Red Blood Count 2.96 M/mm3 (4.2-5.4); White Blood Count 4.2 K/mm3 (4.4-11.0)
[2024-08-14 07:09] LABS: Anion Gap 7 (5-15); BUN 53 mg/dL (7-18); BUN/Creat Ratio 43.4 RATIO (10-20); Calcium,Total 8.8 mg/dL (8.5-10.1); Chloride 106 mmol/L (98-107); Creatinine, Serum 1.22 mg/dL (0.55-1.02); EST Glomerular Filtration Rate 44 mL/min (>60); Est Glom Filt Rate - Afr Amer 54 mL/min (>60); Estimated Creatinine Clearance 28.42 ml/min; Glucose 120 mg/dL (74-106); Potassium 4.8 mmol/L (3.5-5.1); Sodium Level 135 mmol/L (136-145)
[2024-08-14 07:12] LABS: Blood Gas Specimen Type VEN
[2024-08-14] MEDS: Ipratropium/Albuterol Sulfate 3 ML AMPUL.NEB INHALATION ×4 (07:45→19:47)
[2024-08-14] MEDS: Ceftriaxone 1 GM/50 ML BAG IV (09:37)
[2024-08-14] MEDS: Cyanocobalamin 500 MCG Tablet 1000 MCG PO (09:38)
[2024-08-14] MEDS: Metolazone 2.5 MG Tablet PO (09:38)
[2024-08-14] MEDS: Magnesium Chloride 64 MG Delay Rel.Tablet 128 MG PO ×2 (09:39→20:41)
[2024-08-14] MEDS: Potassium Chloride Oral Tablet 20 MEQ 40 MEQ PO (09:39)
[2024-08-14] MEDS: Oseltamivir Phosphate 30 MG Capsule PO ×2 (09:39→20:40)
[2024-08-14] MEDS: Aspirin 81 MG TAB.CHEW PO (09:39)
[2024-08-14] MEDS: Metoprolol Tartrate 25 MG Tablet 12.5 MG PO ×2 (09:39→20:40)
[2024-08-14] MEDS: APIXABAN 2.5 MG TABLET (WCH) PO ×2 (09:40→20:40)
[2024-08-14] MEDS: Furosemide 40 MG/4 ML Vial IV ×2 (09:40→17:29)
[2024-08-14] MEDS: Ferrous Sulfate 325 MG Tablet PO ×2 (09:40→16:23)
[2024-08-14] MEDS: 0.9% Saline Lock 10 ML Syringe IV ×3 (09:41→20:40)
[2024-08-14] MEDS: Doxycycline 100 MG in 0.9% Normal Saline (250mL Bag) 250 ML 250 MG IV ×2 (10:09→20:41)
--- NOTE | 2024-08-14 10:13 | PN_ITS ---
Subjective Subjective Patient seen and examined. Her daughter was by her bedside. Patient says she still feels short of breath. She denied any fever or chills. She is on 3 L of oxygen. Her daughter is concerned about worsening redness on her left lower extremity. Daughter also says patient recently had a UTI and so she would want to repeat urinalysis done. She has otherwise remained hemodynamically stable. Objective Data Objective Data Vital Signs: Vital Signs Temp Pulse Resp BP Pulse Ox O2 Del Method O2 Flow Rate 97.7 F L 84 18 105/70 99 Nasal Cannula 2 08/14/24 09:25 08/14/24 09:39 08/14/24 09:25 08/14/24 09:39 08/14/24 09:25 08/14/24 09:25 08/14/24 09:25 Oxygen Flow Rate (L/min) 2 Oxygen Delivery Method Nasal Cannula Weight: 139 lb 12.369 oz Body Mass Index (BMI) 25.5 Intake & Output: Intake and Output for Last 24 Hours 08/12/24 08/13/24 08/14/24 23:59 23:59 23:59 Intake Total 120 / 620 760 / 760 Balance 120 / 620 760 / 760 Lab / Micro Data 08/14/24 05:54 08/14/24 05:54 Labs: Laboratory Results - last 24 hr 08/13/24 10:46: WBC Cancelled, Corrected WBC Cancelled, RBC Cancelled, Hgb Cancelled, Hct Cancelled, MCV Cancelled, MCH Cancelled, MCHC Cancelled, RDW Std Deviation Cancelled, RDW Coeff of Jim Cancelled, Plt Count Cancelled, MPV Cancelled, Immature Gran % (Auto) Cancelled, Neut % (Auto) Cancelled, Lymph % (Auto) Cancelled, [place] % (Auto) Cancelled, Eos % (Auto) Cancelled, Baso % (Auto) Cancelled, Absolute Neuts (auto) Cancelled, Absolute Lymphs (auto) Cancelled, Total Counted Cancelled, Neutrophils % (Manual) Cancelled, Band Neutrophils % Cancelled, Lymphocytes % (Manual) Cancelled, Monocytes % (Manual) Cancelled, Eosinophils % (Manual) Cancelled, Basophils % (Manual) Cancelled, Metamyelocytes % Cancelled, Myelocytes % Cancelled, Promyelocytes % Cancelled, Blast Cells % Cancelled, Plasma Cell % (Manual) Cancelled, Other Cells % Cancelled, Nucleated RBC % Cancelled, Nucleated RBCs/100 WBC Cancelled, Differential Comment Cancelled, Diff Path Review Cancelled, Hypersegmented Neuts Cancelled, Atypical Lymphocytes Cancelled, Reactive Lymphocytes Cancelled, Smudge Cells Cancelled, Toxic Granulation Cancelled, Toxic Vacuolation Cancelled, Dohle Bodies Cancelled, David Rods Cancelled, Platelet Estimate Cancelled, Plt Morphology Comment Cancelled, RBC Morphology Cancelled 08/13/24 10:46: RBC Morphology Cancelled, Polychromasia Cancelled, Hypochromasia Cancelled, Basophilic Stippling Cancelled, Anisocytosis Cancelled, Microcytosis Cancelled, Macrocytosis Cancelled, Spherocytes Cancelled, Sickle Cells Cancelled, Target Cells Cancelled, Tear Drop Cells Cancelled, Ovalocytes Cancelled, Stomatocytes Cancelled, [place] Bodies Cancelled, [place] Cells Cancelled, Bite Cells Cancelled, Crenated Cell Cancelled, Acanthocytes (Spur) Cancelled, Rouleaux Cancelled, Schistocytes Cancelled, Sodium 138, Potassium 4.5, Chloride 106, Carbon Dioxide 22.0, Anion Gap 10, BUN 50 H, Creatinine 1.30 H, Estim Creat Clear Calc 27.21, Est GFR (MDRD) Af Amer 50 L, Est GFR (MDRD) Non-Af 41 L, BUN/Creatinine Ratio 38.5 H, Glucose 145 H, Lactic Acid 4.1 H*, Calcium 9.4, Total Bilirubin 0.80, AST 23, ALT 20, Alkaline Phosphatase 70, B- Natriuretic Peptide 2466.0 H, Total Protein 7.8, Albumin 3.4, Globulin 4.4 H, A lbumin/Globulin Ratio 0.8 L 08/13/24 12:05: WBC 5.0, RBC 3.13 L, Hgb 8.8 L, Hct 29.1 L, MCV 93.0, MCH 28.1, MCHC 30.2 L, RDW Std Deviation 60.0 H, RDW Coeff of Jim 17.7 H, Plt Count 129 L, MPV 10.3, Immature Gran % (Auto) 0.400, Neut % (Auto) 69.1, Lymph % (Auto) 19.0, [place] % (Auto) 11.3 H, Eos % (Auto) 0.0, Baso % (Auto) 0.2, Absolute Neuts (auto) 3.4, Absolute Lymphs (auto) 0.94, Nucleated RBC % 0 08/13/24 15:17: Lactic Acid 3.3 H* 08/13/24 22:53: POC Glucose 117 H 08/14/24 05:54: WBC 4.2 L, RBC 2.96 L, Hgb 8.4 L, Hct 27.1 L, MCV 91.6, MCH 28.4, MCHC 31.0 L, RDW Std Deviation 57.5 H, RDW Coeff of Jim 17.3 H, Plt Count 127 L, MPV 9.9, Immature Gran % (Auto) 0.700, Neut % (Auto) 68.9, Lymph % (Auto) 13.9 L, [place] % (Auto) 16.3 H, Eos % (Auto) 0.0, Baso % (Auto) 0.2, Absolute Neuts (auto) 2.9, Absolute Lymphs (auto) 0.59 L, Nucleated RBC % 0.7, Sodium 135 L, Potassium 4.8, Chloride 106, Carbon Dioxide 22.0, Anion Gap 7, BUN 53 H, C reatinine 1.22 H, Estim Creat Clear Calc 28.42, Est GFR (MDRD) Af Amer 54 L, Est GFR (MDRD) Non-Af 44 L, BUN/Creatinine Ratio 43.4 H, Glucose 120 H, Calcium 8.8 Micro: Microbiology 08/13/24 10:45 Mucosa - Nose SARS-CoV-2, Influenza & RSV (PCR) - Final Influenzae A ABG Data ABG results: ABG 08/13/24 08/13/24 11:11 12:44 Specimen Type KATHARINA ART Sample Site L Brach L Brach pH 7.29 L 7.35 Bicarbonate Actual 23.4 18.9 L Total CO2 25 20 Base Excess -3 L -7 L O2 Saturation 11 L 95 O2 % 3.0 3.0 ABG pCO2 48.9 H 34.2 L ABG pO2 < 12 L* 76 Michael Test Positive Positive O2 Delivery Device Cannula Cannula Vent Mode Not entered Not entered Crit Call To/Read Back Yes Blood Gas Notified Whom gall0 Blood Gas Notified Time 11:14:23 Radiography Diagnostic Testing: Radiology Impression Chest X-Ray 08/13/24 11:44 IMPRESSION: Patchy infiltrates in the right middle lobe. Follow-up recommended. Reading Location: [facility] Physical Exam Const alert, oriented x3 and no apparent distress Constitutional Narrative: frail General Appearance: cooperative HEENT normocephalic, head/scalp atraumatic, hearing grossly normal bilaterally, moist oral mucous membranes and oropharynx normal Eyes PERRL, EOMs intact bilaterally and conjunctivae normal Neck no lymphadenopathy and supple Resp Resp Narrative: moderately diminished breath sounds bibasally, no wheezes. Bilateral crackles. On 3L of oxygen by nasal canula Cardio regular rate, regular rhythm, S1 normal heart sound, S2 normal heart sound and no murmurs GI normal to inspection, nondistended, normoactive bowel sounds, soft to palpation, non-tender and non-distended Extremity Extremity Narrative: mild bilateral LE edema; erythema over left titus. Has a superficial ulceration on the left titus. Minimal differential warmth. Skin Skin Narrative: as under extremities Neuro oriented x3, CN's II-XII intact bilaterally, moves all extremities and no focal motor deficits Sensorium / Orientation: awake and alert Motor Exam: strength 5/5 throughout and general weakness Psych thought process normal, cooperative and affect normal Psych Narrative: frail Appearance: appropriate Assessment & Plan Assessment/Plan (1) Right lower lobe pulmonary infiltrate: (2) Influenza A: (3) Hypoxia: PLAN: Plan #Hypoxia due to acute influenza infection with superimposed pneumonia * on 3L of oxygen by nasal canula * Tested positive for influenza A. Had had numerous contacts with influenza A. * Chest x-ray showed right middle lobe infiltrates. WBC is 4.2 today. * Lactic acid was 4.1 on admission and is now 3.3 with hydration.. * BNP was markedly elevated at 2466. * on Tamiflu 75 mg twice daily as well as IV ceftriaxone and doxycycline. * continue with IV lasix 40mg bid. * Also diuresed with IV Lasix 40 mg twice daily. Breathing treatments with bronchodilators. * Titrate oxygen to maintain saturation above 90%. * #Acute on chronic heart failure * BNP elevated as above. Start diuresis with IV Lasix 40 mg daily. Titrate oxygen to maintain saturation above 90% * . Fluid restriction 1500 cc daily. * On metolazone also * 2D echo from 02/2023 showed EF of 70% and no regional motion abnormalities noted and unable to assess diastolic dysfunction. * #LLE cellulitis * has mild erythema of LLE as well as superficial ulceration * on IV ceftriaxone and doxycycline which will also treat cellulitis * apply SADIA wraps to LLE * #Elevated lactic acid: * Lactic acid was 4.1 and trended down to 3.3. * This is likely due to hypoxia. * Should improve as patient condition improves. * #Atrial fibrillation: On Eliquis. Also on metoprolol. Is also s/p pacemaker. #Aortic stenosis s/p TAVR: Stable #Chronic anemia: Hemoglobin is 8.8. Baseline hemoglobin seems to be between 8 and 10. Will monitor closely. #Type 2 diabetes mellitus: Hold metformin on account of elevated lactic acid. Insulin sliding scale. Accu-Cheks ACHS. DVT prophylaxis: On Eliquis CODE STATUS: DNR CCA no intubation * Charges/Coding Visit Charges Inpatient E&M: 40645 Subs Hosp L2
[2024-08-14 12:02] LABS: Bedside Glucose 149 mg/dL (74-106)
[2024-08-14] MEDS: Acetaminophen 325 MG Tablet 650 MG PO (12:34)
[2024-08-14 13:17] LABS: Bedside Glucose 107 mg/dL (74-106)
--- NOTE | 2024-08-14 14:53 | CASEMGMT ---
ITALO COPELAND Assessment: Face to Face with pt for initial transition planning/care coordination assessment. ITALO COPELAND introduced self and role at [facility], pt voices understanding and consents to assessment. Pt is A&O x4 and answers all questions appropriately at this time. Pt lying in bed with daughter and granddaughter present. Pt agreeable to DC planning with family present. Care providers, pharmacy, and demographics verified/updated. Strata: 2 Admitting Dx: Hypoxia, Flu A PCP: Reymundo Specialists: José Miguel, Wheat Inspector Preferred Pharmacy: [facility] Insurance: [employer] Prescription Benefit: yes LNOK:Triny smith Living Arrangements: Pt lives with Daughter and MARCO in a ranch home with 1 step to enter. ADLs: Pt I at baseline, needs assistance with deep cleaning but can do light house work on her own. Transportation: Pt pays [employer] drivers for transportation. DME: naun marie, [facility] HHC/SNF: Denies Hx of. Pt states no concerns with going home at time of dc. Pt states no further concerns/needs. ITALO COPELAND discussed possibility of O2 at time of DC. Provided a verbal list of O2 providers, pt chose [facility] as DME provider of choice. CM to follow. Advised pt to ask CM if any further question/concerns/needs arise, voices understanding. Pt Goal: Home Plan: Home, follow for O2 Namita PUCKETT CM
[2024-08-14] MEDS: Insulin Lispro 100 UNIT/ML INSULN.PEN SC (16:23)
[2024-08-14 16:59] LABS: Bedside Glucose 164 mg/dL (74-106)
[2024-08-14] MEDS: Atorvastatin Calcium 20 MG Tablet PO ×2 (20:40)
[2024-08-14 21:26] LABS: Bedside Glucose 131 mg/dL (74-106)
[2024-08-15] VITALS (12 sets, daily range): BP systolic 93–100; BP diastolic 49–62; PULSE 69–92; RESP 16–24; TEMP 36.4–36.6; O2SAT 91–99
[2024-08-15 05:17] LABS: Absolute Neutrophil Count 3.3 X10^3/uL (2.0-7.7); Basophil# 0.02 X10^3/uL; Basophil% 0.4 % (0-1); Eosinophil# 0.02 X10^3/uL; Eosinophils% 0.4 % (0-5); Hematocrit 27.4 % (37-47); Hemoglobin 8.4 g/dL (12.0-15.0); Lymphocyte % 14.8 % (19-41); Mean Corp Hgb Conc 30.7 g/dL (32-36); Mean Corpuscular Hgb 28.3 pg (27.0-32.0); Mean Corpuscular Volume 92.3 fL (81-99); Mean Platelet Vol. 10.4 fl (6.2-12.0); Monocyte# 0.65 X10^3/uL; Monocyte% 13.7 % (0-10); NRBC Flagged by Analyzer 0.4 % (0-5); Neutrophil # 3.31 X10^3/uL (2.7-7.7); Neutrophil % 69.9 % (47-70); Platelet Count 149 K/mm3 (150-450); RBC Distribution Width CV 17.2 % (11.6-14.6); RBC Distribution Width SD 57.6 fl (35.1-43.9); Red Blood Count 2.97 M/mm3 (4.2-5.4); White Blood Count 4.7 K/mm3 (4.4-11.0)
[2024-08-15 05:35] LABS: Anion Gap 7 (5-15); BUN 63 mg/dL (7-18); BUN/Creat Ratio 37.7 RATIO (10-20); Calcium,Total 8.6 mg/dL (8.5-10.1); Chloride 104 mmol/L (98-107); Creatinine, Serum 1.67 mg/dL (0.55-1.02); EST Glomerular Filtration Rate 31 mL/min (>60); Est Glom Filt Rate - Afr Amer 37 mL/min (>60); Estimated Creatinine Clearance 20.76 ml/min; Glucose 124 mg/dL (74-106); Potassium 5.5 mmol/L (3.5-5.1); Sodium Level 134 mmol/L (136-145)
[2024-08-15 06:43] LABS: Bedside Glucose 108 mg/dL (74-106)
[2024-08-15] MEDS: Ipratropium/Albuterol Sulfate 3 ML AMPUL.NEB INHALATION ×4 (07:47→20:34)
[2024-08-15] MEDS: Ceftriaxone 1 GM/50 ML BAG IV (09:10)
[2024-08-15] MEDS: Acetaminophen 325 MG Tablet 650 MG PO ×2 (09:25→21:33)
[2024-08-15] MEDS: Cyanocobalamin 500 MCG Tablet 1000 MCG PO (09:25)
[2024-08-15] MEDS: Potassium Chloride Oral Tablet 20 MEQ 40 MEQ PO (09:25)
[2024-08-15] MEDS: APIXABAN 2.5 MG TABLET (WCH) PO ×2 (09:26→21:41)
[2024-08-15] MEDS: Magnesium Chloride 64 MG Delay Rel.Tablet 128 MG PO ×2 (09:26→21:41)
[2024-08-15] MEDS: Aspirin 81 MG TAB.CHEW PO (09:26)
[2024-08-15] MEDS: Oseltamivir Phosphate 30 MG Capsule PO ×2 (09:26→21:41)
[2024-08-15] MEDS: Doxycycline 100 MG in 0.9% Normal Saline (250mL Bag) 250 ML 250 MG IV ×2 (10:53→21:34)
[2024-08-15] MEDS: Metolazone 2.5 MG Tablet PO (10:53)
--- NOTE | 2024-08-15 11:07 | PN_ITS ---
Subjective Subjective Patient seen and examined. She was sitting up in her chair. Her daughter was by her bedside. She looks much better today and said she did feel better. She denied any wheezing, chest pain, coughing, palpitations, dizziness, nausea or vomiting. Review of symptoms otherwise negative. She remains on 2 L of oxygen. Objective Data Objective Data Vital Signs: Vital Signs Temp Pulse Resp BP Pulse Ox O2 Del Method O2 Flow Rate 97.6 F L 80 18 98/54 L 91 Room Air 2 08/15/24 09:08 08/15/24 09:08 08/15/24 09:08 08/15/24 09:08 08/15/24 10:06 08/15/24 09:08 08/15/24 03:00 Oxygen Flow Rate (L/min) 2 Oxygen Delivery Method Room Air Weight: 139 lb 12.369 oz Body Mass Index (BMI) 25.5 Intake & Output: Intake and Output for Last 24 Hours 08/13/24 08/14/24 08/15/24 23:59 23:59 23:59 Intake Total 120 / 620 1810 / 1810 50 / 50 Balance 120 / 620 1810 / 1810 50 / 50 Lab / Micro Data 08/15/24 04:31 08/15/24 04:31 Labs: Laboratory Results - last 24 hr 08/14/24 09:12: POC Glucose 107 H 08/14/24 11:20: POC Glucose 149 H 08/14/24 16:18: POC Glucose 164 H 08/14/24 20:38: POC Glucose 131 H 08/15/24 04:31: WBC 4.7, RBC 2.97 L, Hgb 8.4 L, Hct 27.4 L, MCV 92.3, MCH 28.3, MCHC 30.7 L, RDW Std Deviation 57.6 H, RDW Coeff of Jim 17.2 H, Plt Count 149 L, MPV 10.4, Immature Gran % (Auto) 0.800, Neut % (Auto) 69.9, Lymph % (Auto) 14.8 L, [place] % (Auto) 13.7 H, Eos % (Auto) 0.4, Baso % (Auto) 0.4, Absolute Neuts (auto) 3.3, Absolute Lymphs (auto) 0.70 L, Nucleated RBC % 0.4, Sodium 134 L, P otassium 5.5 H, Chloride 104, Carbon Dioxide 23.0, Anion Gap 7, BUN 63 H, C reatinine 1.67 H, Estim Creat Clear Calc 20.76, Est GFR (MDRD) Af Amer 37 L, Est GFR (MDRD) Non-Af 31 L, BUN/Creatinine Ratio 37.7 H, Glucose 124 H, Calcium 8.6 08/15/24 06:20: POC Glucose 108 H Micro: Microbiology 08/14/24 12:45 Urine, Clean Catch Legionella Antigen - Final 08/14/24 12:45 Urine, Clean Catch Streptococcus pneumoniae Antigen (M - Final 08/13/24 10:45 Mucosa - Nose SARS-CoV-2, Influenza & RSV (PCR) - Final Influenzae A Physical Exam Const alert, oriented x3 and no apparent distress Constitutional Narrative: frail General Appearance: cooperative HEENT normocephalic, head/scalp atraumatic, hearing grossly normal bilaterally, moist oral mucous membranes and oropharynx normal Eyes PERRL, EOMs intact bilaterally and conjunctivae normal Neck no lymphadenopathy and supple Resp Resp Narrative: moderately diminished breath sounds bibasally, no wheezes. Bilateral crackles. On 2L of oxygen by nasal canula Cardio regular rate, regular rhythm, S1 normal heart sound, S2 normal heart sound and no murmurs GI normal to inspection, nondistended, normoactive bowel sounds, soft to palpation, non-tender and non-distended Extremity normal to inspection and full ROM Extremity Narrative: mild bilateral LE edema; erythema over left titus. Has a superficial ulceration on the left titus. Minimal differential warmth. Skin Skin Narrative: as under extremities Neuro oriented x3, CN's II-XII intact bilaterally, moves all extremities and no focal motor deficits Sensorium / Orientation: awake and alert Motor Exam: strength 5/5 throughout and general weakness Psych thought process normal, cooperative and affect normal Psych Narrative: frail Appearance: appropriate Assessment & Plan Assessment/Plan (1) Right lower lobe pulmonary infiltrate: (2) Influenza A: (3) Hypoxia: PLAN: Plan #Hypoxia due to acute influenza infection with superimposed pneumonia * now down to 2L of oxygen * Tested positive for influenza A. Had had numerous contacts with influenza A. * Chest x-ray showed right middle lobe infiltrates. WBC is 4.7 today. * Lactic acid was 4.1 on admission and is now 3.3 with hydration.. * BNP was markedly elevated at 2466. * on Tamiflu 75 mg twice daily as well as IV ceftriaxone and doxycycline. * Hold Lasix as creatinine is up to 1.67 today. * Breathing treatments with bronchodilators. * Titrate oxygen to maintain saturation above 90%. * #Acute on chronic heart failure * BNP elevated as above. Being diuresed with IV Lasix 40 mg twice daily. Will hold Lasix as creatinine has trended upwards. Titrate oxygen to maintain saturation above 90% * . Fluid restriction 1500 cc daily. * On metolazone also * 2D echo from 02/2023 showed EF of 70% and no regional motion abnormalities noted and unable to assess diastolic dysfunction. * Hold Lasix and metolazone due to VINCENT on CKD * #LLE cellulitis * has mild erythema of LLE as well as superficial ulceration * on IV ceftriaxone and doxycycline which will also treat cellulitis * apply SADIA wraps to LLE * #Elevated lactic acid: * Lactic acid was 4.1 and trended down to 3.3. * This is likely due to hypoxia. * Largely resolved. * #Hyperkalemia: Potassium is 5.5. Will give kayexalate. HOld nephrotoxic meds. #VINCENT on CKD 3a: * Creatinine is 1.67. Baseline creatinine is around 1.2 from admission. * Lasix held is also likely contributing. * Blood pressure also running low as 98/54. Will hydrate with IV fluids gently as patient may likely have been over diuresed. * Trend Cr * . #Atrial fibrillation: On Eliquis. Also on metoprolol. Is also s/p pacemaker. #Aortic stenosis s/p TAVR: Stable #Chronic anemia: Hemoglobin is 8.4. Baseline hemoglobin seems to be between 8 and 10. Will monitor closely. #Type 2 diabetes mellitus: Hold metformin on account of elevated lactic acid. Insulin sliding scale. Accu-Cheks ACHS. DVT prophylaxis: On Eliquis CODE STATUS: DNR CCA no intubation Disposition: anticipate dc over the next 24-48 hours. * Charges/Coding Visit Charges Inpatient E&M: 77984 Subs Hosp L2
[2024-08-15] MEDS: Sodium Polystyrene Sulfonate 15 GM/60 ML UDC 30 GM PO (11:57)
[2024-08-15] MEDS: 0.9% Normal Saline (1000mL) 1,000 ML 100 ML IV ×2 (12:00→21:41)
[2024-08-15] MEDS: Insulin Lispro 100 UNIT/ML INSULN.PEN SC (12:00)
[2024-08-15] MEDS: Ferrous Sulfate 325 MG Tablet PO ×2 (12:04→16:42)
[2024-08-15 12:27] LABS: Bedside Glucose 151 mg/dL (74-106)
[2024-08-15 17:22] LABS: Bedside Glucose 112 mg/dL (74-106)
[2024-08-15 23:27] LABS: Bedside Glucose 131 mg/dL (74-106)
[2024-08-16] VITALS (11 sets, daily range): BP systolic 112–129; BP diastolic 57–74; PULSE 81–106; RESP 18–22; TEMP 36.3–36.6; O2SAT 91–100
--- NOTE | 2024-08-16 02:34 | NURSING ---
This RN taking over care for this pt at this time.
[2024-08-16 05:50] LABS: Absolute Lymphocyte Count 0.65 X10^3/uL (0.83-4.51); Absolute Neutrophil Count 3.5 X10^3/uL (2.0-7.7); Basophil# 0.01 X10^3/uL; Basophil% 0.2 % (0-1); Eosinophil# 0.01 X10^3/uL; Eosinophils% 0.2 % (0-5); Hematocrit 28.5 % (37-47); Hemoglobin 8.5 g/dL (12.0-15.0); Lymphocyte # 0.65 X10^3/ul (0.83-4.51); Lymphocyte % 13.6 % (19-41); Mean Corp Hgb Conc 29.8 g/dL (32-36); Mean Corpuscular Hgb 27.7 pg (27.0-32.0); Mean Corpuscular Volume 92.8 fL (81-99); Mean Platelet Vol. 10.2 fl (6.2-12.0); Monocyte# 0.59 X10^3/uL; Monocyte% 12.3 % (0-10); NRBC Flagged by Analyzer 0 % (0-5); Neutrophil % 73.3 % (47-70); Platelet Count 148 K/mm3 (150-450); RBC Distribution Width CV 17.2 % (11.6-14.6); RBC Distribution Width SD 58.3 fl (35.1-43.9); Red Blood Count 3.07 M/mm3 (4.2-5.4); White Blood Count 4.8 K/mm3 (4.4-11.0)
[2024-08-16 06:09] LABS: Anion Gap 9 (5-15); BUN 57 mg/dL (7-18); BUN/Creat Ratio 38.8 RATIO (10-20); Calcium,Total 8.3 mg/dL (8.5-10.1); Chloride 108 mmol/L (98-107); Creatinine, Serum 1.47 mg/dL (0.55-1.02); EST Glomerular Filtration Rate 36 mL/min (>60); Est Glom Filt Rate - Afr Amer 43 mL/min (>60); Estimated Creatinine Clearance 23.59 ml/min; Glucose 142 mg/dL (74-106); Potassium 5.2 mmol/L (3.5-5.1); Sodium Level 136 mmol/L (136-145)
[2024-08-16] MEDS: Acetaminophen 325 MG Tablet 650 MG PO ×2 (06:21→16:45)
[2024-08-16 06:54] LABS: Bedside Glucose 125 mg/dL (74-106)
[2024-08-16] MEDS: Ipratropium/Albuterol Sulfate 3 ML AMPUL.NEB INHALATION ×4 (07:50→20:07)
[2024-08-16] MEDS: Ceftriaxone 1 GM/50 ML BAG IV (09:14)
[2024-08-16] MEDS: Metolazone 2.5 MG Tablet PO (09:23)
[2024-08-16] MEDS: APIXABAN 2.5 MG TABLET (WCH) PO ×2 (09:23→21:26)
[2024-08-16] MEDS: Magnesium Chloride 64 MG Delay Rel.Tablet 128 MG PO ×2 (09:23→21:27)
[2024-08-16] MEDS: Metoprolol Tartrate 25 MG Tablet 12.5 MG PO ×2 (09:24→21:26)
[2024-08-16] MEDS: Aspirin 81 MG TAB.CHEW PO (09:24)
[2024-08-16] MEDS: Ferrous Sulfate 325 MG Tablet PO ×2 (09:24→16:44)
[2024-08-16] MEDS: Cyanocobalamin 500 MCG Tablet 1000 MCG PO (09:25)
[2024-08-16] MEDS: Oseltamivir Phosphate 30 MG Capsule PO ×2 (09:25→21:27)
[2024-08-16] MEDS: Doxycycline 100 MG in 0.9% Normal Saline (250mL Bag) 250 ML 250 MG IV ×2 (10:15→21:27)
--- NOTE | 2024-08-16 11:23 | PN_ITS ---
Subjective Subjective Paitent seen and examined. Daughter was by her bedside. She said she felt worse overnight and had some shortness of breath. She is coughing, but it is dry. She denied any fever, chills, chest pain, palpitations, dizziness, nausea, vomiting or any other systems. Review of systems is otherwise negative. She is on 2L of oxygen Objective Data Objective Data Vital Signs: Vital Signs Temp Pulse Resp BP Pulse Ox O2 Del Method O2 Flow Rate 97.8 F 89 22 H 112/57 L 98 Nasal Cannula 2 08/16/24 09:00 08/16/24 11:16 08/16/24 11:16 08/16/24 09:24 08/16/24 09:00 08/16/24 09:00 08/16/24 09:00 Oxygen Flow Rate (L/min) 2 Oxygen Delivery Method Nasal Cannula Weight: 139 lb 12.369 oz Body Mass Index (BMI) 25.5 Intake & Output: Intake and Output for Last 24 Hours 08/14/24 08/15/24 08/16/24 23:59 23:59 23:59 Intake Total 1810 / 1810 2438.33 / 2798.33 1410 / 1410 Balance 1810 / 1810 2438.33 / 2798.33 1410 / 1410 Lab / Micro Data 08/16/24 05:11 08/16/24 05:11 Labs: Laboratory Results - last 24 hr 08/15/24 12:00: POC Glucose 151 H 08/15/24 16:40: POC Glucose 112 H 08/15/24 21:45: POC Glucose 131 H 08/16/24 05:11: WBC 4.8, RBC 3.07 L, Hgb 8.5 L, Hct 28.5 L, MCV 92.8, MCH 27.7, MCHC 29.8 L, RDW Std Deviation 58.3 H, RDW Coeff of Jim 17.2 H, Plt Count 148 L, MPV 10.2, Immature Gran % (Auto) 0.400, Neut % (Auto) 73.3 H, Lymph % (Auto) 13.6 L, [place] % (Auto) 12.3 H, Eos % (Auto) 0.2, Baso % (Auto) 0.2, Absolute Neuts (auto) 3.5, Absolute Lymphs (auto) 0.65 L, Nucleated RBC % 0, Sodium 136, Potassium 5.2 H, Chloride 108 H, Carbon Dioxide 19.0 L, Anion Gap 9, BUN 57 H, C reatinine 1.47 H, Estim Creat Clear Calc 23.59, Est GFR (MDRD) Af Amer 43 L, Est GFR (MDRD) Non-Af 36 L, BUN/Creatinine Ratio 38.8 H, Glucose 142 H, Calcium 8.3 L 08/16/24 06:15: POC Glucose 125 H Micro: Microbiology 08/14/24 12:45 Urine, Clean Catch Legionella Antigen - Final 08/14/24 12:45 Urine, Clean Catch Streptococcus pneumoniae Antigen (M - Final 08/13/24 10:45 Mucosa - Nose SARS-CoV-2, Influenza & RSV (PCR) - Final Influenzae A Physical Exam Const alert, oriented x3 and no apparent distress Constitutional Narrative: frail General Appearance: cooperative HEENT normocephalic, head/scalp atraumatic, hearing grossly normal bilaterally, moist oral mucous membranes and oropharynx normal Eyes PERRL, EOMs intact bilaterally and conjunctivae normal Neck no lymphadenopathy and supple Resp Resp Narrative: moderately diminished breath sounds bibasally, no wheezes. Bilateral crackles. On 2L of oxygen by nasal canula Cardio regular rate, regular rhythm, S1 normal heart sound, S2 normal heart sound and no murmurs GI normal to inspection, nondistended, normoactive bowel sounds, soft to palpation, non-tender and non-distended Extremity normal to inspection, full ROM and no clubbing, cyanosis or edema Extremity Narrative: mild bilateral LE edema; erythema over left titus. Has a superficial ulceration on the left titus. Minimal differential warmth. Skin Skin Narrative: as under extremities Neuro oriented x3, CN's II-XII intact bilaterally, moves all extremities and no focal motor deficits Sensorium / Orientation: awake and alert Motor Exam: strength 5/5 throughout and general weakness Psych thought process normal, cooperative and affect normal Psych Narrative: frail Appearance: appropriate Assessment & Plan Assessment/Plan (1) Right lower lobe pulmonary infiltrate: (2) Influenza A: (3) Hypoxia: PLAN: Plan #Hypoxia due to acute influenza infection with superimposed pneumonia * now down to 2L of oxygen * Tested positive for influenza A. Had had numerous contacts with influenza A. * Chest x-ray showed right middle lobe infiltrates. WBC is 4.7 today. * Lactic acid was 4.1 on admission and is now 3.3 with hydration.. * BNP was markedly elevated at 2466. * on Tamiflu 75 mg twice daily as well as IV ceftriaxone and doxycycline. * Breathing treatments with bronchodilators. * Titrate oxygen to maintain saturation above 90%. * #Acute on chronic heart failure * BNP elevated as above. Being diuresed with IV Lasix 40 mg twice daily. Will hold Lasix as creatinine has trended upwards. Titrate oxygen to maintain saturation above 90% * . Fluid restriction 1500 cc daily. * On metolazone also * 2D echo from 02/2023 showed EF of 70% and no regional motion abnormalities noted and unable to assess diastolic dysfunction. * Hold Lasix and metolazone due to VINCENT on CKD * #LLE cellulitis * has mild erythema of LLE as well as superficial ulceration * on IV ceftriaxone and doxycycline which will also treat cellulitis * apply SADIA wraps to LLE * #Elevated lactic acid: * Lactic acid was 4.1 and trended down to 3.3. * This is likely due to hypoxia. * Largely resolved. * #Hyperkalemia: Potassium is down to 5.2. Will repeat dose of kayexalate. Hold nephrotoxic meds. #VINCENT on CKD 3a with hyperkalemia * Creatinine is down today to 1.47 from 1.67. . Baseline creatinine is around 1.2 from admission. * Lasix held is also likely contributing. * Blood pressure also running low as 98/54. Will hydrate with IV fluids gently as patient may likely have been over diuresed. * Trend Cr * . #Atrial fibrillation: On Eliquis. Also on metoprolol. Is also s/p pacemaker. #Aortic stenosis s/p TAVR: Stable #Chronic anemia: Hemoglobin is 8.4. Baseline hemoglobin seems to be between 8 and 10. Will monitor closely. #Type 2 diabetes mellitus: Hold metformin on account of elevated lactic acid. Insulin sliding scale. Accu-Cheks ACHS. DVT prophylaxis: On Eliquis CODE STATUS: DNR CCA no intubation Disposition: anticipate dc over the next 24-48 hours. * Charges/Coding Visit Charges Inpatient E&M: 74457 Subs Hosp L2
[2024-08-16 11:57] LABS: Bedside Glucose 126 mg/dL (74-106)
[2024-08-16] MEDS: Sodium Polystyrene Sulfonate 15 GM/60 ML UDC 30 GM PO (14:57)
[2024-08-16] MEDS: Insulin Lispro 100 UNIT/ML INSULN.PEN SC (16:44)
[2024-08-16 17:29] LABS: Bedside Glucose 168 mg/dL (74-106)
[2024-08-16] MEDS: Atorvastatin Calcium 20 MG Tablet PO (21:26)
[2024-08-16 22:01] LABS: Bedside Glucose 146 mg/dL (74-106)
[2024-08-16] MEDS: Ondansetron 4 MG/2 ML Vial IV (22:46)
[2024-08-17] VITALS (10 sets, daily range): BP systolic 115–127; BP diastolic 54–69; PULSE 83–109; RESP 20–24; TEMP 36.3–36.9; O2SAT 91–96
[2024-08-17] MEDS: Acetaminophen 325 MG Tablet 650 MG PO ×2 (01:13→10:35)
[2024-08-17] MEDS: Ipratropium/Albuterol Sulfate 3 ML AMPUL.NEB INHALATION ×4 (04:35→20:41)
--- NOTE | 2024-08-17 05:50 | RAD_ITS ---
PROCEDURE: CHEST 1 VIEW (PORTABLE) REASON FOR EXAM: Dyspnea, cough TECHNIQUE: Frontal view of the chest. COMPARISON: 08/13/2024 FINDINGS: Interval mild decrease although persistent patchy ill-defined opacity right mid to lower lung. No new infiltrate identified. Cardiac silhouette is again enlarged with again note of mitral valve replacement and single lead pacemaker. RAD/Chest 1 View (Portable) IMPRESSION: Interval mild decrease although persistent patchy ill-defined opacity right mid to lower lung. No new infiltrate identified. . Reading Location: [id number]
[2024-08-17 06:21] LABS: Color, Urine Yellow (Yellow); Glucose, Dipstick Normal (Normal); Ketone-Dipstick Negative (Negative); Leukocyte Esterase-Dipstick 500 /ul (Negative); Nitrite-Dipstick Positive (Negative); Occult Blood-Urine 25 /ul (Negative); Protein-Dipstick 30 mg/dl (Negative); Specific Gravity, Urine 1.015 (1.002-1.030); Urine Bilirubin Dipstick Negative (Negative); Urine Clarity Sl. Cloudy (Clear); Urine Urobilinogen Normal (Normal); Urine pH 6.5 (5.0 - 8.0)
[2024-08-17 06:28] LABS: Bacteria 2+ /hpf (None Seen); Mucous, Urine 1+ /hpf (<or=2+); Red Blood Cells-Urine 0 SEEN /hpf (0-5); Squamous Epithelial Cells - UA 0-5 SEEN /hpf (5-10); White Blood Cells 10-25 SEEN /hpf (0-5)
[2024-08-17] MEDS: Nystatin Powder 15gm Bottle 1 APPLIC TOPICAL ×2 (06:37→14:42)
[2024-08-17] MEDS: Menthol/Lanolin/Calamine/Znox 113 GM Tube 1 APPLIC TOPICAL ×2 (06:37→14:43)
[2024-08-17] MEDS: Insulin Lispro 100 UNIT/ML INSULN.PEN SC ×2 (06:37→16:26)
[2024-08-17 06:59] LABS: Bedside Glucose 152 mg/dL (74-106)
[2024-08-17 07:54] LABS: Absolute Lymphocyte Count 0.52 X10^3/uL (0.83-4.51); Absolute Neutrophil Count 4.2 X10^3/uL (2.0-7.7); Basophil# 0.01 X10^3/uL; Basophil% 0.2 % (0-1); Hematocrit 29.7 % (37-47); Lymphocyte # 0.52 X10^3/ul (0.83-4.51); Lymphocyte % 9.8 % (19-41); Mean Corp Hgb Conc 30.3 g/dL (32-36); Mean Corpuscular Hgb 28.2 pg (27.0-32.0); Mean Corpuscular Volume 93.1 fL (81-99); Mean Platelet Vol. 9.9 fl (6.2-12.0); Monocyte# 0.51 X10^3/uL; Monocyte% 9.6 % (0-10); NRBC Flagged by Analyzer 0.8 % (0-5); Neutrophil # 4.21 X10^3/uL (2.7-7.7); Neutrophil % 79.5 % (47-70); POSITIVE DIFFERENTIAL YES; Platelet Count 163 K/mm3 (150-450); RBC Distribution Width CV 17.4 % (11.6-14.6); RBC Distribution Width SD 58.9 fl (35.1-43.9); Red Blood Count 3.19 M/mm3 (4.2-5.4); White Blood Count 5.3 K/mm3 (4.4-11.0)
[2024-08-17 08:25] LABS: Anion Gap 9 (5-15); BUN 48 mg/dL (7-18); BUN/Creat Ratio 38.4 RATIO (10-20); Calcium,Total 8.9 mg/dL (8.5-10.1); Chloride 107 mmol/L (98-107); Creatinine, Serum 1.25 mg/dL (0.55-1.02); EST Glomerular Filtration Rate 43 mL/min (>60); Est Glom Filt Rate - Afr Amer 52 mL/min (>60); Estimated Creatinine Clearance 27.74 ml/min; Glucose 172 mg/dL (74-106); Potassium 4.2 mmol/L (3.5-5.1); Sodium Level 139 mmol/L (136-145)
[2024-08-17] MEDS: Aspirin 81 MG TAB.CHEW PO (09:06)
[2024-08-17] MEDS: Metoprolol Tartrate 25 MG Tablet 12.5 MG PO (09:06)
[2024-08-17] MEDS: APIXABAN 2.5 MG TABLET (WCH) PO (09:07)
[2024-08-17] MEDS: Magnesium Chloride 64 MG Delay Rel.Tablet 128 MG PO (09:07)
[2024-08-17] MEDS: Oseltamivir Phosphate 30 MG Capsule PO (09:07)
[2024-08-17] MEDS: Cyanocobalamin 500 MCG Tablet 1000 MCG PO (09:07)
[2024-08-17] MEDS: Doxycycline 100 MG in 0.9% Normal Saline (250mL Bag) 250 ML 250 MG IV (09:09)
[2024-08-17] MEDS: Ceftriaxone 1 GM/50 ML BAG IV (10:35)
[2024-08-17] MEDS: Ondansetron 4 MG/2 ML Vial IV (11:30)
[2024-08-17 12:02] LABS: Bedside Glucose 145 mg/dL (74-106)
--- NOTE | 2024-08-17 13:04 | ECHOD_ITS ---
Reason For Study Reason For Study: Dyspnea/SOB Procedure This was a 2D Doppler, Color Flow transthoracic echocardiogram. Exam performed portable in patient room. Left Ventricle Normal LV size. The estimated ejection fraction is 55 %. Unable to assess diastolic dysfunction. Septal hypokinesis with flattening of the interventricular septum. Right Ventricle Normal RV size. ICD or pacer leads identified within the right ventricle. Normal systolic function. Atria There is severe biatrial dilatation. ICD or pacer leads identified within the right atrium. No doppler evidence for ASD. Mitral Valve There is moderate mitral annular calcification. There is no mitral valve stenosis. Moderately severe (3+) mitral valve insufficiency. Tricuspid Valve There is no tricuspid stenosis. Moderate (2+) tricuspid valve insufficiency. Severe pulmonary hypertension. Pulmonary artery systolic pressure is 95 mmHg. Aortic Valve Trivial aortic valve insufficiency. Stable appearing bioprosthetic aortic valve apparatus. Pulmonic Valve There is no pulmonic valvular stenosis. No pulmonic valve insufficiency. Great Vessels Normal sized aortic root. Pericardium/Pleural No pericardial effusion. MMode/2D Measurements & Calculations LVIDd: 4.2 cm IVSd: 1.3 cm LVOT diam: 1.7 cm LVIDs: 3.3 cm LVPWd: 1.2 cm LVOT area: 2.3 cm2 RVDd: 5.4 cm FS: 21.0 % LAV(MOD-bp): 123.5 ml LVAd ap4: 21.1 cm2 SV(MOD-sp4): 23.6 ml LAV(MOD-bp) Indexed: 75.4 ml/m2 LVLd ap4: 6.1 cm SI(MOD-sp4): 14.4 ml/m2 LAV(MOD-sp2): 129.4 ml EDV(MOD-sp4): 59.2 ml LAV(MOD-sp4): 116.2 ml EDV(sp4-el): 61.5 ml LVAs ap4: 15.3 cm2 LVLs ap4: 5.4 cm ESV(MOD-sp4): 35.7 ml ESV(sp4-el): 37.0 ml EF(MOD-sp4): 39.8 % EF(sp4-el): 39.8 % SV(sp4-el): 24.5 ml LA A4 area: 32.6 cm2 LA dimension(2D): 5.6 cm RA A4 area: 29.8 cm2 Doppler Measurements & Calculations MV E max paula: 132.6 cm/sec MV V2 max: 150.4 cm/sec Ao V2 max: 279.7 cm/sec MV max P.1 mmHg Ao max P.4 mmHg MV V2 mean: 87.7 cm/sec Ao V2 mean: 191.7 cm/sec MV mean P.7 mmHg Ao mean P.9 mmHg MV V2 VTI: 25.2 cm Ao V2 VTI: 40.7 cm AV (velocity ratio): 0.44 MVA(VTI): 1.6 cm2 AYANNA(I,D): 1.0 cm2 AYANNA(V,D): 0.97 cm2 AI max paula: 396.2 cm/sec LV V1 max: 119.8 cm/sec MR max paula: 586.0 cm/sec AI max P.8 mmHg LV V1 max P.8 mmHg MR max P.4 mmHg LV V1 mean P.2 mmHg MR mean paula: 439.5 cm/sec AI dec slope: 309.4 cm/sec2 LV V1 mean: 82.5 cm/sec MR mean P.1 mmHg AI P1/2t: 375.1 msec LV V1 VTI: 18.0 cm MR VTI: 163.3 cm SV(LVOT): 40.8 ml TR max paula: 464.8 cm/sec TR max P.4 mmHg ECHO/Echo Complete Interpretation Summary The estimated ejection fraction is 55 %. There is severe biatrial dilatation. Moderately severe (3+) mitral valve insufficiency. Severe pulmonary hypertension. Ordering Physician: Roger^Dmitri^^^ Performed By: Stewart Coy RCS
[2024-08-17] MEDS: predniSONE 20 MG Tablet 40 MG PO (14:43)
[2024-08-17] MEDS: Furosemide 40 MG Tablet PO (14:43)
[2024-08-17] MEDS: Ferrous Sulfate 325 MG Tablet PO (16:26)
[2024-08-17 17:17] LABS: Bedside Glucose 168 mg/dL (74-106)
--- NOTE | 2024-08-17 17:35 | PCM.PN.HOSP ---
Reason for Visit Reason for Visit: Diagnoses Influenza due to other identified influenza virus with other respiratory manifestations (08/13/24) Hypoxemia (08/13/24) Other nonspecific abnormal finding of lung field (08/13/24) Subjective Subjective Patient was seen and examined today, I talked to the patient's daughter who was in the room at the time of my examination. Patient has a history of severe pulmonary hypertension as well as moderately severe mitral valve insufficiency. Objective Data Objective Data Vital Signs: Vital Signs Temp Pulse Resp BP Pulse Ox O2 Del Method O2 Flow Rate 97.8 F 95 22 H 115/63 94 Nasal Cannula 2 08/17/24 14:42 08/17/24 14:48 08/17/24 14:48 08/17/24 14:42 08/17/24 14:42 08/17/24 14:42 08/17/24 15:38 Oxygen Flow Rate (L/min) 2 Oxygen Delivery Method Nasal Cannula Weight: 63.4 kg Body Mass Index (BMI) 25.5 Intake & Output: Intake and Output for Last 24 Hours 08/15/24 08/16/24 08/17/24 23:59 23:59 23:59 Intake Total 2438.33 / 2798.33 2410 / 2410 560 / 560 Output Total 1350 / 1350 Balance 2438.33 / 2798.33 2410 / 1060 -790 / -790 Lab / Micro Data 08/17/24 07:13 08/17/24 07:13 Labs: Laboratory Results - last 24 hr 08/16/24 21:22: POC Glucose 146 H 08/17/24 05:55: Urine Color Yellow, Urine Clarity Sl. Cloudy, Urine pH 6.5, Ur Specific [place] 1.015, Urine Protein 30 H, Urine Glucose (UA) Normal, Urine Ketones Negative, Urine Occult Blood 25 H, Urine Nitrite Positive H, Urine Bilirubin Negative, Urine Urobilinogen Normal, Ur Leukocyte Esterase 500 H, Urine RBC 0 SEEN, Urine WBC 10-25 SEEN, Ur Squamous Epith Cells 0-5 SEEN, Urine Bacteria 2+, Urine Mucus 1+ 08/17/24 06:36: POC Glucose 152 H 08/17/24 07:13: WBC 5.3, RBC 3.19 L, Hgb 9.0 L, Hct 29.7 L, MCV 93.1, MCH 28.2, MCHC 30.3 L, RDW Std Deviation 58.9 H, RDW Coeff of Jim 17.4 H, Plt Count 163, MPV 9.9, Immature Gran % (Auto) 0.900, Neut % (Auto) 79.5 H, Lymph % (Auto) 9.8 L, [place] % (Auto) 9.6, Eos % (Auto) 0.0, Baso % (Auto) 0.2, Absolute Neuts (auto) 4.2, Absolute Lymphs (auto) 0.52 L, Nucleated RBC % 0.8, Sodium 139, Potassium 4.2, Chloride 107, Carbon Dioxide 23.0, Anion Gap 9, BUN 48 H, Creatinine 1.25 H, Estim Creat Clear Calc 27.74, Est GFR (MDRD) Af Amer 52 L, Est GFR (MDRD) Non-Af 43 L, BUN/Creatinine Ratio 38.4 H, Glucose 172 H, Calcium 8.9 08/17/24 11:24: POC Glucose 145 H 08/17/24 16:26: POC Glucose 168 H Micro: Microbiology 08/14/24 12:45 Urine, Clean Catch Legionella Antigen - Final 08/14/24 12:45 Urine, Clean Catch Streptococcus pneumoniae Antigen (M - Final 08/13/24 10:45 Mucosa - Nose SARS-CoV-2, Influenza & RSV (PCR) - Final Influenzae A Radiography Diagnostic Testing: Radiology Impression Chest X-Ray 08/17/24 05:50 IMPRESSION: Interval mild decrease although persistent patchy ill-defined opacity right mid to lower lung. No new infiltrate identified. . Reading Location: [id number] Echocardiogram 08/17/24 13:04 Interpretation Summary The estimated ejection fraction is 55 %. There is severe biatrial dilatation. Moderately severe (3+) mitral valve insufficiency. Severe pulmonary hypertension. Ordering Physician: Roger^Dmitri^^Dr.^DO Performed By: Stewart Coy RCS Physical Exam Const alert and no apparent distress General Appearance: cooperative, well kempt and well developed Orientation / Consciousness: awake, oriented to person and oriented to place HEENT normocephalic, head/scalp atraumatic and moist oral mucous membranes Eyes PERRL, EOMs intact bilaterally and conjunctivae normal Neck supple, no JVD, thyroid normal and no carotid bruits General: trachea midline Resp normal respiratory effort, no retractions and no use of accessory muscles Resp Narrative: Coarse expiratory rhonchi are noted bilaterally Auscultation: Negative for rales, rhonchi or wheezes Cardio regular rate, regular rhythm, S1 normal heart sound, S2 normal heart sound, no murmurs, no rub and no gallops GI normal to inspection, nondistended, normoactive bowel sounds, soft to palpation, non-tender and non-distended Extremity no clubbing, cyanosis or edema Skin no rashes or lesions noted General Skin Exam: no breakdown Neuro CN's II-XII intact bilaterally, moves all extremities, no focal motor deficits and no sensory deficits noted Sensorium / Orientation: awake, alert, oriented to person and oriented to place Speech: speech normal Psych affect normal Assessment & Plan Assessment/Plan (1) Hypoxia: PLAN: Plan 1. Acute influenza A with community-acquired pneumonia-patient is on Tamiflu, I have elected to change the patient over to doxycycline and add prednisone #2 hypoxia secondary to #1-pulse ox will be monitored, patient may need home oxygen set up at the time of discharge home #3 severe pulmonary hypertension-patient will remain on Zaroxolyn and oral Lasix, complicates care, management, recovery, and prognosis #4 paroxysmal atrial fibrillation-patient is on Eliquis and rate limiting medication Total clinical time spent by myself addressing patient's medical issues, reviewing all of her data, and collaborating with patient's care team: 35-minutes Charges/Coding Visit Charges Inpatient E&M: 91167 Subs Hosp L2
[2024-08-18] VITALS (11 sets, daily range): BP systolic 108–127; BP diastolic 52–71; PULSE 88–109; RESP 18–20; TEMP 36.5–36.8; O2SAT 75–97
[2024-08-18] MEDS: Menthol/Lanolin/Calamine/Znox 113 GM Tube 1 APPLIC TOPICAL ×2 (00:06→14:37)
[2024-08-18] MEDS: Nystatin Powder 15gm Bottle 1 APPLIC TOPICAL ×2 (00:07→14:37)
[2024-08-18] MEDS: Magnesium Chloride 64 MG Delay Rel.Tablet 128 MG PO ×2 (00:08→09:02)
[2024-08-18] MEDS: Atorvastatin Calcium 20 MG Tablet PO (00:10)
[2024-08-18] MEDS: Metoprolol Tartrate 25 MG Tablet 12.5 MG PO ×2 (00:11→09:02)
[2024-08-18] MEDS: 0.9% Saline Lock 10 ML Syringe IV (00:21)
[2024-08-18] MEDS: Doxycycline 100 MG CAPSULE PO ×2 (00:21→09:08)
[2024-08-18] MEDS: APIXABAN 2.5 MG TABLET (WCH) PO ×2 (00:22→09:02)
[2024-08-18] MEDS: Insulin Lispro 100 UNIT/ML INSULN.PEN SC ×2 (00:26→11:43)
[2024-08-18 01:28] LABS: Bedside Glucose 192 mg/dL (74-106)
[2024-08-18 07:10] LABS: Bedside Glucose 145 mg/dL (74-106)
[2024-08-18] MEDS: Ipratropium/Albuterol Sulfate 3 ML AMPUL.NEB INHALATION ×2 (07:46→11:18)
[2024-08-18 07:51] LABS: Anion Gap 4 (5-15); BUN 45 mg/dL (7-18); BUN/Creat Ratio 35.7 RATIO (10-20); Calcium,Total 8.9 mg/dL (8.5-10.1); Chloride 108 mmol/L (98-107); Creatinine, Serum 1.26 mg/dL (0.55-1.02); EST Glomerular Filtration Rate 43 mL/min (>60); Est Glom Filt Rate - Afr Amer 52 mL/min (>60); Estimated Creatinine Clearance 27.52 ml/min; Glucose 164 mg/dL (74-106); Sodium Level 139 mmol/L (136-145)
[2024-08-18] MEDS: Aspirin 81 MG TAB.CHEW PO (09:02)
[2024-08-18] MEDS: Acetaminophen 325 MG Tablet 650 MG PO (09:02)
[2024-08-18] MEDS: predniSONE 20 MG Tablet PO ×2 (09:02→16:18)
[2024-08-18] MEDS: Cyanocobalamin 500 MCG Tablet 1000 MCG PO (09:03)
[2024-08-18] MEDS: Oseltamivir Phosphate 30 MG Capsule PO (09:03)
[2024-08-18] MEDS: Furosemide 40 MG Tablet PO (09:03)
[2024-08-18] MEDS: Ferrous Sulfate 325 MG Tablet PO ×2 (11:43→16:18)
[2024-08-18 12:04] LABS: Bedside Glucose 180 mg/dL (74-106)
--- NOTE | 2024-08-18 15:25 | CASEMGMT ---
Patient qualifies for home oxygen, script received. ITALO COPELAND in to discuss needs at discharge, daughters at bedside. Daughters deny HHC or additional needs at discharge. ITALO COPELAND updated daughters of oxygen needs at discharge and that referral will be sent to [facility], preferred provider. Daughter voiced understanding and had no further questions or concerns. ITALO COPELAND sent referral to [facility] via [facility] and arranged for oxygen to be delivered to patient's room. ITALO COPELAND updated discharge plan.
--- NOTE | 2024-08-18 15:52 | DCINST_ITS ---
Discharge Instructions Diet Discharge Diet: No restrictions DC O2, CPAP, BIPAP needs Home O2 Discharge instructions: Yes Type of respiratory needs?: Oxygen Oxygen frequency: Continuous Continuous oxygen liters per minute: 3 L and With Ambulation Oxygen liters per minute during Ambulation: 3 L Follow Up Care Test Results: Test results from this visit will be discussed in further detail at your follow- up appointment, if applicable. Discharge Plan Admission Admit Date/Time: 08/13/24 12:02 Primary Reason for Your Visit: Pneumonia, influenza A Attending Provider: Dmitri Duran Primary Care Provider: Robert Avelar Consulting Providers: Renee Holder Discharge Orders/Prescriptions Prescriptions: New prednisone 20 mg Tablet 20 mg PO BIDCM Qty: 11 0RF Rx Instructions: Start the evening of 08/18/2024 doxycycline monohydrate 100 mg Capsule 100 mg PO BID Qty: 11 0RF Rx Instructions: Start the evening of 08/18/2024 furosemide 40 mg Tablet 40 mg PO BIDCM Qty: 60 0RF Continued atorvastatin 20 MG tablet 20 mg PO DAILY cyanocobalamin (vitamin B-12) 1,000 mcg tablet 1,000 mcg PO DAILY metolazone 2.5 mg tablet 2.5 mg PO DAILY Eliquis 2.5 mg tablet 2.5 mg PO BID metoprolol tartrate 25 MG tablet 12.5 mg PO Q12H ferrous sulfate [FeroSul] 325 mg (65 mg iron) tablet 325 mg PO DAILY acetaminophen 325 mg tablet 650 mg PO Q6H PRN (Reason: pain) aspirin [Aspirin Childrens] 81 mg tablet,chewable 1 tab PO DAILY ferrous sulfate [Feosol] 325 mg (65 mg iron) tablet 325 mg PO BIDCM hydroxyzine pamoate 25 mg capsule 25 - 50 mg PO BID PRN (Reason: anxiety) fluorouracil 5 % cream 1 applic topical BID Rx Instructions: SEE DIRECTIONS ATTACHED metformin 500 mg tablet extended release 24 hr 1,000 mg PO BID omega-3 fatty acids 1,000 mg capsule 2,000 mg PO DAILY potassium chloride 20 mEq tablet extended release 40 meq PO DAILY Rx Instructions: TAKE WITH BREAKFAST Slow-Mag 71.5 mg tablet,delayed release (DR/EC) 143 mg PO BID calcium carbonate-vitamin D3 [Calcium 600 + D(3)] 600 mg-5 mcg (200 unit) tablet 1 tab PO BID Discontinued furosemide 40 MG tablet 40 mg PO DAILY 30 Days Qty: 30 0RF Referrals / Follow Up: Robert Avelar MD [Primary Care Provider] - In 1 Week Disposition Disposition (needs filled in before D/C Order can be placed): Home, Self Care
--- NOTE | 2024-08-18 16:15 | PCM.DC.SUM ---
Providers Date of Admission: 08/13/24 Date of Discharge: 08/18/24 Primary Care Physician: Dr. Robert Avelar MD Reason For Visit: HYPOXIA, INFLUENZA Diagnosis Discharge Diagnosis (1) Hypoxia: Status: Acute Code(s): R09.02 - Hypoxemia Plan 1. Acute influenza A with community-acquired bacterial pneumonia-patient is on Tamiflu, I have elected to change the patient over to doxycycline and add prednisone #2 hypoxia secondary to #1-pulse ox will be monitored, patient may need home oxygen set up at the time of discharge home #3 severe pulmonary hypertension-patient will remain on Zaroxolyn and oral Lasix, complicates care, management, recovery, and prognosis #4 paroxysmal atrial fibrillation-patient is on Eliquis and rate limiting medication #5 severe mitral valve insufficiency Patient did not have congestive heart failure Total clinical time spent by myself addressing patient's medical issues, reviewing all of her data, and collaborating with patient's care team: 35-minutes Medications at Discharge Home Medications atorvastatin 20 mg tablet 20 mg PO DAILY cholesterol 06/30/19 apixaban 2.5 mg tablet (Eliquis) 2.5 mg PO BID anticoagulant 02/23/23 cyanocobalamin (vitamin B-12) 1,000 mcg tablet 1,000 mcg PO DAILY health maintenance 02/23/23 ferrous sulfate 325 mg (65 mg iron) tablet (FeroSul) 325 mg PO DAILY supplement 02/23/23 metolazone 2.5 mg tablet 2.5 mg PO DAILY diuretic 02/23/23 metoprolol tartrate 25 mg tablet 12.5 mg PO Q12H heart rate, blood pressure 02/23/23 acetaminophen 325 mg tablet 650 mg PO Q6H PRN pain 08/13/24 aspirin 81 mg chewable tablet (Aspirin Childrens) 1 tab PO DAILY heart health 08/13/24 calcium 600 mg (as carbonate)-vitamin D3 5 mcg (200 unit) tablet (Calcium 600 + D(3)) 1 tab PO BID supplement 08/13/24 ferrous sulfate 325 mg (65 mg iron) tablet (Feosol) 325 mg PO BIDCM supplement 08/13/24 fluorouracil 5 % topical cream 1 applic topical BID 08/13/24 hydroxyzine pamoate 25 mg capsule 25 - 50 mg PO BID PRN anxiety 08/13/24 magnesium chloride 71.5 mg (magnesium chloride) tablet,delayed release (Slow-Mag) 143 mg PO BID supplement 08/13/24 metformin 500 mg tablet,extended release 24 hr 1,000 mg PO BID diabetes 08/13/24 omega-3 fatty acids 1,000 mg capsule 2,000 mg PO DAILY supplement 08/13/24 potassium chloride 20 mEq tablet,extended release 40 meq PO DAILY supplement 08/13/24 doxycycline monohydrate 100 mg capsule 100 mg PO BID #11 caps 08/18/24 furosemide 40 mg tablet 40 mg PO BIDCM #60 tabs 08/18/24 prednisone 20 mg tablet 20 mg PO BIDCM #11 tabs 08/18/24 Hospital Course Operations None Procedures 2-D Echocardiogram Summary of Care Provided Minutes Spent on Discharge: 32 Hospital Course: This 89-year-old white female was seen in the emergency room at [facility] with a chief complaint of shortness of breath with minimal activity. Workup in the emergency room included a CHEM panel which was remarkable for BUN of 50 and a creatinine of 1.3, patient's lactic acid was elevated at 4.1, patient's rapid antigen for COVID influenza and RSV was obtained and was positive for influenza A. Patient's white blood cell count was normal and her hemoglobin was 8.8. Platelet count was slightly low at 129,000. Chest x-ray showed patchy infiltrates in the right middle lobe. Patient was admitted to PCU for hypoxia due to acute influenza A and superimposed community-acquired pneumonia, she was placed on IV antibiotics, this examiner did not feel she had acute on chronic heart failure but the patient had an echocardiogram performed which showed severe pulmonary hypertension and severe mitral insufficiency. Patient improved during her hospitalization. At the time of discharge, patient required 3 L of oxygen at rest and 3 L of oxygen on ambulation. On 08/18/2024, patient was seen and examined: On examination she appeared in good health and spirits, she does not appear to be in any distress. Vital signs as documented. Skin warm and dry and without overt rashes. Neck without JVD, thyroid appears normal, trachea is midline, neck is supple. Lungs clear, normal air movement was noted. Heart exam notable for regular rhythm, normal sounds and absence of murmurs, rubs or gallops. Abdomen unremarkable and without evidence of organomegaly, masses, or abdominal aortic enlargement, bowel sounds are present in all 4 quadrants, no abdominal tenderness was noted. Extremities nonedematous, no cyanosis was noted, no clubbing was noted. Neuro: Cranial nerves II through XII are grossly intact, no focal motor deficits were noted, sensation to light touch and pinprick is intact, motor exam 5/5 throughout. Psych: Patient is alert and oriented x3, she does not appear anxious or depressed, she does not appear agitated. Patient appears stable for discharge home on 08/18/2024. Weight / BMI Weight Weight: 63.4 kg Body Mass Index (BMI) 25.5 ABG / Lab / Microbiology Data 08/17/24 07:13 08/18/24 07:18 Laboratory: Laboratory Results - last 24 hr 08/17/24 16:26: POC Glucose 168 H 08/18/24 00:25: POC Glucose 192 H 08/18/24 06:49: POC Glucose 145 H 08/18/24 07:18: Sodium 139, Potassium 4.0, Chloride 108 H, Carbon Dioxide 27.0, Anion Gap 4 L, BUN 45 H, Creatinine 1.26 H, Estim Creat Clear Calc 27.52, Est GFR (MDRD) Af Amer 52 L, Est GFR (MDRD) Non-Af 43 L, BUN/Creatinine Ratio 35.7 H, Glucose 164 H, Calcium 8.9 08/18/24 11:42: POC Glucose 180 H Microbiology: Microbiology 08/14/24 12:45 Urine, Clean Catch Legionella Antigen - Final 08/14/24 12:45 Urine, Clean Catch Streptococcus pneumoniae Antigen (M - Final 08/13/24 10:45 Mucosa - Nose SARS-CoV-2, Influenza & RSV (PCR) - Final Influenzae A D/C Instructions Discharge Diet: No restrictions DC O2, CPAP, BIPAP Needs Home O2 Discharge instructions: Yes Type of respiratory needs?: Oxygen Oxygen frequency: Continuous Continuous oxygen liters per minute: 3 L and With Ambulation Oxygen liters per minute during Ambulation: 3 L DC home with Oxygen: Yes Home O2 MD Review: I have reviewed the oxygen testing, and the patient qualifies for home oxygen equipment and portability. The patient is mobile in the home and the community. Meaningful Use Info Meaningful Use Meaningful Use Diagnoses (Choose all that apply): None applicable Ischemic Stroke Statin Dosing Therapy Reference: STATIN DOSE THERAPY REFERENCE: * Patients > 75 years receive moderate or high dose statin therapy. * Patients 75 years or YOUNGER should receive HIGH intensity statin dose unless contraindicated. You will be required to document reason for non-treatment if statin daily dose does not meet guidelines. HIGH DOSE STATIN THERAPY DAILY Atorvastatin > than or = to 40 mg Rosuvastatin > than or = to 20 mg Amlodipine + Atorvastatin > than or = to 2.5/40 mg Ezetimibe + Simvastatin 10/80 mg Simvastatin 80mg Discharge Plan Admission Admit Date/Time: 08/13/24 12:02 Primary Reason for Your Visit: Pneumonia, influenza A Attending Provider: Dmitri Duran Primary Care Provider: Robert Avelar Consulting Providers: Renee Holder Discharge Orders/Prescriptions Prescriptions: New prednisone 20 mg Tablet 20 mg PO BIDCM Qty: 11 0RF Rx Instructions: Start the evening of 08/18/2024 doxycycline monohydrate 100 mg Capsule 100 mg PO BID Qty: 11 0RF Rx Instructions: Start the evening of 08/18/2024 furosemide 40 mg Tablet 40 mg PO BIDCM Qty: 60 0RF Continued atorvastatin 20 MG tablet 20 mg PO DAILY cyanocobalamin (vitamin B-12) 1,000 mcg tablet 1,000 mcg PO DAILY metolazone 2.5 mg tablet 2.5 mg PO DAILY Eliquis 2.5 mg tablet 2.5 mg PO BID metoprolol tartrate 25 MG tablet 12.5 mg PO Q12H ferrous sulfate [FeroSul] 325 mg (65 mg iron) tablet 325 mg PO DAILY acetaminophen 325 mg tablet 650 mg PO Q6H PRN (Reason: pain) aspirin [Aspirin Childrens] 81 mg tablet,chewable 1 tab PO DAILY ferrous sulfate [Feosol] 325 mg (65 mg iron) tablet 325 mg PO BIDCM hydroxyzine pamoate 25 mg capsule 25 - 50 mg PO BID PRN (Reason: anxiety) fluorouracil 5 % cream 1 applic topical BID Rx Instructions: SEE DIRECTIONS ATTACHED metformin 500 mg tablet extended release 24 hr 1,000 mg PO BID omega-3 fatty acids 1,000 mg capsule 2,000 mg PO DAILY potassium chloride 20 mEq tablet extended release 40 meq PO DAILY Rx Instructions: TAKE WITH BREAKFAST Slow-Mag 71.5 mg tablet,delayed release (DR/EC) 143 mg PO BID calcium carbonate-vitamin D3 [Calcium 600 + D(3)] 600 mg-5 mcg (200 unit) tablet 1 tab PO BID Discontinued furosemide 40 MG tablet 40 mg PO DAILY 30 Days Qty: 30 0RF Referrals / Follow Up: Robert Avelar MD [Primary Care Provider] - 08/24/24 10:00 am Disposition Disposition (needs filled in before D/C Order can be placed): Home, Self Care Charges/Coding Visit Charges Inpatient E&M: 35868 Disch Hosp >30min
== END 2024-08-18 17:53 | disposition home or self-care (01) | DRG 194 ==
LOC: ED 12:04 → PCU 14:36
PROVIDERS: Admitting Provider Student in an Organized Health Care Education/Training Program; Emergency Provider Emergency Medicine; PCP Family Medicine; Visit Provider Internal Medicine
DX: J10.1 Influenza due to other identified influenza virus with other respiratory manifestations (principal); E87.20 Acidosis, unspecified; L97.221 Non-pressure chronic ulcer of left calf limited to breakdown of skin; I27.20 Pulmonary hypertension, unspecified; D63.1 Anemia in chronic kidney disease; Z66 Do not resuscitate; E11.22 Type 2 diabetes mellitus with diabetic chronic kidney disease; N18.31 Chronic kidney disease, stage 3a; I12.9 Hypertensive chronic kidney disease with stage 1 through stage 4 chronic kidney disease, or unspecified chronic kidney disease; Z95.2 Presence of prosthetic heart valve; I48.0 Paroxysmal atrial fibrillation; J10.08 Influenza due to other identified influenza virus with other specified pneumonia; J98.01 Acute bronchospasm; E87.5 Hyperkalemia; F41.9 Anxiety disorder, unspecified; Z79.01 Long term (current) use of anticoagulants; Z95.0 Presence of cardiac pacemaker; R09.02 Hypoxemia; Z79.82 Long term (current) use of aspirin; Z79.899 Other long term (current) drug therapy; Z79.84 Long term (current) use of oral hypoglycemic drugs; Z90.49 Acquired absence of other specified parts of digestive tract; R74.02 Elevation of levels of lactic acid dehydrogenase [LDH]
CPT/HCPCS: 36415; 36600; 71045; 71046; 80048; 80053; 81001; 82803; 82962; 83605; 83880; 85025; 87449; 87631; 93005; 93306; 94640; 97116; 97162; 97166; 97530; 97535; 99285; A4216; J1940; J2405